=== PATIENT | female | born 1955 | race Caucasian/White ===

== ENCOUNTER 2021-01-10 15:10 | Outpatient (CLI) | payer OTHER, SELFPAY ==
[2021-01-10 15:59] LABS: Add Urine Microscopic? YES; Appearance Urine Clear (Clear); Bilirubin Urine Negative (Negative); Blood Urine Negative (Negative); Color Urine Yellow (Yellow); Glucose Urine UA Negative (Negative); Ketones Urine Negative (Negative); Leukocyte Esterase Ur 2+ LEU/UL (Negative); Mucus Urine Rare /lpf; Nitrate Urine Negative (Negative); Protein Urine Negative (Negative); Specific Grav Ur 1.016 (1.001-1.035); Squamous Epithelial Cell Urine Occasional /hpf (Few); Urobilinogen Urine Negative mg/dL (<2.0); WBC Urine >75 /hpf
== END 2021-01-10 15:11 | disposition home or self-care (01) ==
LOC: ANHLAB 15:12
PROVIDERS: PCP Internal Medicine; Visit Provider Internal Medicine
DX: R30.0 Dysuria (principal)
CPT/HCPCS: 81001; 87077; 87086; 87088; 87186

== ENCOUNTER 2021-02-17 09:53 | Outpatient (CLI) | payer OTHER, SELFPAY ==
[2021-02-17 10:47] LABS: Alanine Aminotransferase 28 U/L (4-35); Albumin Level 4.4 g/dL (3.5-5.1); Alkaline Phosphatase 71 U/L (38-126); Anion Gap 6 mmol/L (8-16); Aspartate Amino Transferase 29 U/L (14-36); Bilirubin,Total 0.2 mg/dL (0.2-1.3); Blood Urea Nitrogen 18 mg/dL (7-17); Calcium 9.4 mg/dL (8.4-10.2); Carbon Dioxide 31 mmol/L (22-30); Chloride 104 mmol/L (98-107); Cholesterol 133 mg/dL (0-200); Estimated Glomerular Filt Rate 50; Glucose 95 mg/dL (65-110); HDL Direct 57 mg/dL; Sodium 141 mmol/L (137-145); Triglycerides 107 mg/dL (<150)
[2021-02-17 10:59] LABS: LDL Cholesterol Direct 44 mg/dL
[2021-02-17 11:40] LABS: Vitamin D 25 Hydroxy 45.6 ng/mL
== END 2021-02-17 09:54 | disposition home or self-care (01) ==
PROVIDERS: PCP Internal Medicine; Visit Provider Internal Medicine
DX: E55.9 Vitamin D deficiency, unspecified (principal); E78.5 Hyperlipidemia, unspecified
CPT/HCPCS: 36415; 80053; 80061; 82306

== ENCOUNTER 2021-07-05 10:30 | Outpatient (CLI) | payer OTHER, SELFPAY ==
--- NOTE | ~2021-07-05 | MM_ITS ---
EXAMINATION: MM screening [facility] BI [facility] [place] HISTORY: Screening mammogram TECHNIQUE: Craniocaudal and mediolateral oblique 3-D tomosynthesis images were obtained and synthetic 2-D images were generated. CAD analysis was submitted and interpreted. COMPARISON: 12/25/2019, 07/04/2018, 07/03/2017 BREAST PARENCHYMAL COMPOSITION: There are scattered areas of fibroglandular density. FINDINGS: There is no evidence of suspicious mass, calcification, or architectural distortion to sugg est malignancy in either breast. There has been no suspicious interval change. IMPRESSION: 1. No mammographic evidence of malignancy. 2. Recommend routine screening mammography in one year. BI-RADS Category 1: Negative Reviewed, dictated and finalized at location A. E AND DATA TECHNICIAN
== END 2021-07-05 10:31 | disposition home or self-care (01) ==
LOC: ANHIMG 10:30
PROVIDERS: PCP Internal Medicine; Visit Provider Obstetrics & Gynecology
DX: Z12.31 Encounter for screening mammogram for malignant neoplasm of breast (principal)
CPT/HCPCS: 77063; 77067

== ENCOUNTER → 2021-08-22 10:16 | Outpatient (CLI) | payer OTHER, SELFPAY ==
[2021-08-22 14:20] LABS: Influenza A QL RT-PCR Negative (Negative); Influenza B QL RT-PCR Negative (Negative); SARS-CoV-2 RNA PCR Negative
== END ==
PROVIDERS: PCP Internal Medicine; Visit Provider Internal Medicine
DX: R09.89 Other specified symptoms and signs involving the circulatory and respiratory systems (principal); Z20.822 Contact with and (suspected) exposure to COVID-19
CPT/HCPCS: 87502; C9803; U0003; U0005

== ENCOUNTER 2021-08-24 09:34 | Outpatient (CLI) | payer OTHER, SELFPAY ==
[2021-08-24 10:01] LABS: Alanine Aminotransferase 24 U/L (4-35); Albumin Level 4.4 g/dL (3.5-5.1); Alkaline Phosphatase 80 U/L (38-126); Anion Gap 7 mmol/L (8-16); Aspartate Amino Transferase 27 U/L (14-36); Bilirubin,Total 0.3 mg/dL (0.2-1.3); Blood Urea Nitrogen 17 mg/dL (7-17); Carbon Dioxide 29 mmol/L (22-30); Chloride 105 mmol/L (98-107); Cholesterol 149 mg/dL (0-200); Estimated Glomerular Filt Rate > 60; Glucose 94 mg/dL (65-110); HDL Direct 55 mg/dL; Sodium 141 mmol/L (137-145); Triglycerides 101 mg/dL (<150)
[2021-08-24 10:11] LABS: LDL Cholesterol Direct 54 mg/dL
== END 2021-08-24 09:35 | disposition home or self-care (01) ==
LOC: ANHLAB 09:35
PROVIDERS: PCP Internal Medicine; Visit Provider Internal Medicine
DX: E78.5 Hyperlipidemia, unspecified (principal); Z79.899 Other long term (current) drug therapy; I10 Essential (primary) hypertension; E55.9 Vitamin D deficiency, unspecified
CPT/HCPCS: 36415; 80053; 80061; 82306

== ENCOUNTER → 2022-01-30 14:57 | Outpatient (CLI) | payer OTHER, SELFPAY ==
--- NOTE | ~2022-01-30 | DEXA_ITS ---
Bone Density Report Name: BRENTON CHENG Age: 66 Sex: Female Ethnicity: White Date of : 1955 Indication: postmenopausal osteoporosis; height loss; Referring Provider: Sandro Madden Study: Bone densitometry was performed. Exam Date: January 30, 2022 Accession number: [id number] Bone Density: Region BMD T-score Z-score Classification AP Spine (L1-L4) 0.785 -2.4 -0.6 Osteopenia Femoral Neck (Left) 0.542 -2.8 -1.3 Osteoporosis Total Hip (Left) 0.629 -2.6 -1.4 Osteoporosis Femoral Neck (Right) 0.541 -2.8 -1.3 Osteoporosis Total Hip (Right) 0.575 -3.0 -1.8 Osteoporosis Total Hip Mean 0.602 -2.8 -1.6 Osteoporosis World Health Organization criteria for BMD impression classify patients as: Normal (T-score at or above -1.0), Osteopenia (T-score between -1.0 and -2.5), or Osteoporosis (T-score at or below -2.5). 10-year Fracture Risk: FRAX not reported because: Some T-score for Spine Total or Hip Total or Femoral Neck at or below -2.5 Previous Exams: Region Exam Age BMD T-score BMD Change BMD Change Date g/cm2 vs Baseline vs Previous AP Spine(L1-L4) 01/30/2022 66 0.785 -2.4 -0.027* -0.027* 08/25/2009 54 0.812 -2.1 Total Hip(Left) 01/30/2022 66 0.629 -2.6 0.030* 0.030* 08/25/2009 54 0.599 -2.8 Total Hip(Right) 01/30/2022 66 0.575 -3.0 -0.070* -0.070* 08/25/2009 54 0.644 -2.4 *Denotes significance at 95% confidence level, LSC for AP Spine = 0.022 g/cm2, LSC for Total Hip = 0.027 g/cm2 Clinical Information Provided by Patient: Has used the following medications: Vitamin D, Calcium Patient maximum height was 62 Menopause Age: 37 No regular weight bearing exercise Drinks caffeinated beverages Onset of menses at age 16 Number of children 1 Impression: The patient has osteoporosis, based on the Right Total Hip T-score. The BMD for the AP Spine(L1-L4) decreased, changing by -0.027 since the last DXA exam. The BMD for the Total Hip(Right) decreased, changing by -0.070 since the last DXA exam. Discussion: INCREASED RISK OF FRACTURE. BONE DENSITY IS UNDESIRABLY LOW AT ONE OR MORE SKELETAL SITES, CONSISTENT WITH POSTMENOPAUSAL OSTEOPOROSIS. This patient's lowest T-score meets the World Health Organization's (WHO) criteria for osteoporosis at one or more sites (T-score -2.5 or below). In untreated patients, the risk of osteoporotic fracture increases approximately two-fold for each 1.0 SD decrease
== END ==
PROVIDERS: PCP Internal Medicine; Visit Provider Nurse Practitioner
DX: Z78.0 Asymptomatic menopausal state (principal); M85.88 Other specified disorders of bone density and structure, other site; M81.0 Age-related osteoporosis without current pathological fracture
CPT/HCPCS: 77080

== ENCOUNTER 2022-03-05 09:26 | Outpatient (CLI) | payer OTHER, SELFPAY ==
[2022-03-05 10:21] LABS: Alanine Aminotransferase 24 U/L (6-35); Albumin Level 4.1 g/dL (3.5-5.1); Alkaline Phosphatase 81 U/L (38-126); Anion Gap 8 mmol/L (8-16); Aspartate Amino Transferase 21 U/L (14-36); Bilirubin,Total 0.2 mg/dL (0.2-1.3); Blood Urea Nitrogen 16 mg/dL (7-17); Calcium 8.6 mg/dL (8.4-10.2); Carbon Dioxide 28 mmol/L (22-30); Chloride 104 mmol/L (98-107); Cholesterol 146 mg/dL (0-200); Estimated Glomerular Filt Rate 56; Glucose 98 mg/dL (65-110); HDL Direct 52 mg/dL; Potassium 4.5 mmol/L (3.4-5.0); Sodium 140 mmol/L (137-145); Triglycerides 110 mg/dL (<150)
[2022-03-05 10:31] LABS: LDL Cholesterol Direct 62 mg/dL
== END 2022-03-05 09:27 | disposition home or self-care (01) ==
LOC: ANHLAB 09:28
PROVIDERS: PCP Internal Medicine; Visit Provider Nurse Practitioner
DX: E78.5 Hyperlipidemia, unspecified (principal)
CPT/HCPCS: 36415; 80053; 80061

== ENCOUNTER 2022-11-09 09:32 | Outpatient (CLI) | payer MEDICARE, OTHER, SELFPAY ==
[2022-11-09 10:31] LABS: Alanine Aminotransferase 24 U/L (6-35); Albumin Level 4.1 g/dL (3.5-5.1); Alkaline Phosphatase 67 U/L (38-126); Anion Gap 3 mmol/L (8-16); Aspartate Amino Transferase 22 U/L (14-36); Bilirubin,Total 0.4 mg/dL (0.2-1.3); Blood Urea Nitrogen 17 mg/dL (7-17); Calcium 8.7 mg/dL (8.4-10.2); Carbon Dioxide 32 mmol/L (22-30); Chloride 106 mmol/L (98-107); Cholesterol 129 mg/dL (0-200); Estimated Glomerular Filt Rate 56; Glucose 88 mg/dL (65-110); HDL Direct 58 mg/dL; Potassium 4.2 mmol/L (3.4-5.0); Sodium 141 mmol/L (137-145); Triglycerides 112 mg/dL (<150)
[2022-11-09 10:43] LABS: LDL Cholesterol Direct 45 mg/dL
== END 2022-11-09 09:33 | disposition home or self-care (01) ==
LOC: ANHLAB 09:36
PROVIDERS: PCP Family Medicine; Visit Provider Internal Medicine
DX: E78.5 Hyperlipidemia, unspecified (principal); I10 Essential (primary) hypertension; E55.9 Vitamin D deficiency, unspecified
CPT/HCPCS: 36415; 80053; 80061; 82306

== ENCOUNTER 2023-05-20 11:05 | Outpatient (CLI) | payer MEDICARE, OTHER, SELFPAY ==
[2023-05-20 12:09] LABS: Basophils Absolute Auto 0.1 K/mm3 (0.0-0.1); Basophils Percent Auto 0.5 % (0.2-1.2); Eosinophils Absolute Auto 0.3 K/mm3 (0-0.3); Eosinophils Percent Auto 1.4 % (0-4.4); Hematocrit 40.9 % (37.0-47.0); Hemoglobin 12.6 g/dL (12.0-15.0); Immature Granulocyte Absolute 0.07 K/mm3 (0.00-0.031); Immature Granulocyte Percent A 0.4 % (0-0.5); Lymphocytes Absolute Auto 2.28 K/mm3 (0.9-3.2); Lymphocytes Percent Auto 12.5 % (18.3-44.2); Mean Corpuscular HGB Conc 30.8 g/dl (32-36); Mean Corpuscular Volume 90.9 fl (80-100); Mean Platelet Volume 10.4 fl (7.4-10.4); Monocytes Percent Auto 5.5 % (2.6-8.5); Neutrophils Absolute Auto 14.5 K/mm3 (1.3-6.7); Neutrophils Percent Auto 79.7 % (45.5-73.1); Platelet Count Result 313 k/mm3 (150-375); Red Cell Distribution Width 14.4 % (11.5-14.5); White Blood Count 18.2 K/mm3 (4.5-10.0)
[2023-05-20 12:27] LABS: Alanine Aminotransferase 26 U/L (6-35); Albumin Level 4.3 g/dL (3.5-5.1); Alkaline Phosphatase 84 U/L (38-126); Anion Gap 6 mmol/L (8-16); Aspartate Amino Transferase 26 U/L (14-36); Bilirubin,Total 0.7 mg/dL (0.2-1.3); Blood Urea Nitrogen 14 mg/dL (7-17); Calcium 9.4 mg/dL (8.4-10.2); Carbon Dioxide 29 mmol/L (22-30); Chloride 105 mmol/L (98-107); Estimated Glomerular Filt Rate 56; Glucose 99 mg/dL (65-110); Potassium 4.3 mmol/L (3.4-5.0); Sodium 140 mmol/L (137-145)
== END 2023-05-20 11:06 | disposition home or self-care (01) ==
PROVIDERS: PCP Nurse Practitioner; Visit Provider Nurse Practitioner Family
DX: E55.9 Vitamin D deficiency, unspecified (principal); F41.9 Anxiety disorder, unspecified; G47.00 Insomnia, unspecified; J44.9 Chronic obstructive pulmonary disease, unspecified; I12.9 Hypertensive chronic kidney disease with stage 1 through stage 4 chronic kidney disease, or unspecified chronic kidney disease; N18.30 Chronic kidney disease, stage 3 unspecified
CPT/HCPCS: 36415; 80053; 85025

== ENCOUNTER 2023-08-29 10:46 | Outpatient (CLI) | payer MEDICARE, OTHER, SELFPAY ==
[2023-08-29 11:19] LABS: Hematocrit 41.2 % (37.0-47.0); Hemoglobin 12.7 g/dL (12.0-15.0); Mean Corpuscular HGB Conc 30.8 g/dl (32-36); Mean Corpuscular Volume 87.5 fl (80-100); Mean Platelet Volume 10.2 fl (7.4-10.4); Platelet Count Result 344 k/mm3 (150-375); Red Blood Count 4.71 M/mm3 (4.2-5.4); Red Cell Distribution Width 14.2 % (11.5-14.5); White Blood Count 10.5 K/mm3 (4.5-10.0)
[2023-08-29 11:31] LABS: Cholesterol 147 mg/dL (0-200); HDL Direct 57 mg/dL; Triglycerides 171 mg/dL (<150)
[2023-08-29 11:42] LABS: LDL Cholesterol Direct 65 mg/dL
== END 2023-08-29 10:47 | disposition home or self-care (01) ==
PROVIDERS: PCP Nurse Practitioner; Visit Provider Nurse Practitioner
DX: D72.829 Elevated white blood cell count, unspecified (principal); E78.5 Hyperlipidemia, unspecified
CPT/HCPCS: 36415; 80061; 85027

== ENCOUNTER 2024-03-03 11:13 | Outpatient (CLI) | payer MEDICARE, OTHER, SELFPAY ==
[2024-03-03 12:03] LABS: Alanine Aminotransferase 19 U/L (6-35); Albumin Level 4.3 g/dL (3.5-5.1); Alkaline Phosphatase 80 U/L (38-126); Anion Gap 8 mmol/L (4-12); Aspartate Amino Transferase 22 U/L (14-36); Bilirubin,Total 0.4 mg/dL (0.2-1.3); Blood Urea Nitrogen 14 mg/dL (7-17); Calcium 9.1 mg/dL (8.4-10.2); Carbon Dioxide 30 mmol/L (22-30); Chloride 104 mmol/L (98-107); Cholesterol 152 mg/dL (0-200); Estimated Glomerular Filt Rate 50; Glucose 96 mg/dL (65-110); HDL Direct 64 mg/dL; Potassium 4.5 mmol/L (3.4-5.0); Sodium 142 mmol/L (137-145); Triglycerides 196 mg/dL (<150)
[2024-03-03 12:14] LABS: LDL Cholesterol Direct 56 mg/dL
== END 2024-03-03 11:14 | disposition home or self-care (01) ==
PROVIDERS: PCP Nurse Practitioner; Visit Provider Nurse Practitioner
DX: E78.5 Hyperlipidemia, unspecified (principal)
CPT/HCPCS: 36415; 80053; 80061

== ENCOUNTER 2024-08-14 08:31 | Inpatient (IN) | payer MEDICARE, OTHER, SELFPAY ==
[2024-08-14] VITALS (18 sets, daily range): BP systolic 113–134; BP diastolic 61–87; PULSE 104–138; RESP 16–26; TEMP 36.1–36.7; O2SAT 91–100; BMI 26.4
--- NOTE | ~2024-08-14 | XR_ITS ---
Portable chest x-ray Comparison: 08/17/2024 Clinical History: Pneumonia Findings: Minimal left pleural effusion present. Questionable minimal haziness left lung base. Right lung clear. Cardiomediastinal silhouette is stable. Bones and soft tissues are unremarkable. Impression: Minimal left pleural effusion with possible hazy left basilar airspace disease, nonspecific. Reviewed, dictated and finalized at [facility]. Impression: Minimal left pleural effusion with possible hazy left basilar airspace disease, nonspecific.
--- NOTE | ~2024-08-14 | XR_ITS ---
Portable chest x-ray Comparison: 08/14/2024 Clinical History: Shortness of breath Findings: Possible COPD or chronic interstitial disease. Stable haziness left lung apex. Cardiomedi astinal silhouette is stable. Bones and soft tissues are unremarkable. Impression: Stable haziness left lung apex, possibly chronic scarring versus pneumonia. Underlying COPD or other chronic interstitial disease. Reviewed, dictated and finalized at location . Impression: Stable haziness left lung apex, possibly chronic scarring versus pneumonia. Underlying COPD or other chronic interstitial disease.
--- NOTE | ~2024-08-14 | XR_ITS ---
EXAMINATION: XR chest 1V portable DATE: 08/14/2024 09:03 INDICATION: Shortness of breath. TECHNIQUE: A single frontal view of the chest was obtained. COMPARISON: None. FINDINGS: There are lucencies in the lungs, consistent with emphysema. There are scattered mild airsp kaycee opacities in all lung zones bilaterally. No pleural effusion or pneumothorax. The heart size is n ormal. IMPRESSION: 1. Multifocal lung disease, consistent with pneumonia. 2. Emphysema. Reviewed, dictated and finalized at location A. [employer] MACHINE OPERATOR
--- NOTE | ~2024-08-14 | CT_ITS ---
EXAMINATION: CTA chest PE protocol DATE: 08/14/2024 10:58 INDICATION: Shortness of breath. TECHNIQUE: Computed tomography angiography (CTA) of the chest was performed with 100 mL Omnipaque-350 intravenous contrast timed to evaluate the pulmonary arteries. Coronal maximum intensity projection 3D-reconstructions were created by the technologist. Automated exposure control and iterative reconst ruction technique were employed. The dose-length product was 232.74 mGy-cm. COMPARISON: Chest single view 08/14/2024 FINDINGS: There is mild emphysema. There are patchy airspace opacities in all lobes, consistent with pneumonia. There is mucous plugging in left lower lobe and lingula. No pleural effusion. The heart si ze is normal. No pericardial effusion. There are coronary artery calcifications. There is no pulmonar y embolus. There is mild mediastinal lymphadenopathy, likely reactive. The gallbladder is distended. There is mild thoracic spondylosis. IMPRESSION: 1. No pulmonary embolus. 2. Multifocal pneumonia. 3. Mild emphysema. 4. Gallbladder distention, which may be secondary to fasting. Correlate with physical exam to exclude acute cholecystitis. Reviewed, dictated and finalized at location A. L TURNER IMPRESSION: 1. No pulmonary embolus. 2. Multifocal pneumonia. 3. Mild emphysema. 4. Gallbladder distention, which may be secondary to fasting. Correlate with ph ysical exam to exclude acute cholecystitis.
--- NOTE | ~2024-08-14 | CT_ITS ---
CT abdomen pelvis w con Ordering provider: Yuli Hong APRN History: 69 years Female with . Increasing lactic 4.4 . Comparison: None. Technique: CT abdomen and pelvis with IV and without oral contrast. Automated exposure control and it erative reconstruction technique were employed. The dose-length product was 296.95 mGy-cm. 100 mL Omn ipaque 350 was given IV. Findings: VISUALIZED LOWER CHEST: Patchy infiltrate is seen in the left lung base posteriorly, middle lobe and lingula suggestive of pneumonia. UPPER ABDOMINAL ORGANS: Liver: Normal. Gallbladder: Distended with no stones. Spleen: Normal. Stomach/duodenum: Normal. Pancreas: Normal. Adrenals: Normal. Kidneys: Normal. PELVIC ORGANS: The bladder is normal. Contrast is seen in the urinary bladder. BOWEL AND MESENTERY: Colon: No evidence of diverticulitis. Normal appendix. Small Bowel: Normal. No obstruction. Peritoneum/mesentery: No free air or free fluid. No mesenteric lymphadenopathy. RETROPERITONEUM: Mild atheromatous disease of the abdominal aorta. No retroperitoneal lymphadenopat hy. MUSCULOSKELETAL: Superficial soft tissues: The superficial soft tissues are normal. Bones: Age appropriate degenerative changes of the spine. IMPRESSION: 1. No evidence of appendicitis, diverticulitis or intestinal obstruction. The the Reviewed, dictated and finalized at location A. 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
--- NOTE | 2024-08-14 08:40 | ECG_ITS ---
Test Date: 2024-08-14 08:46:43 Measurements Intervals [place] Rate: 135 P: 81 VT: 140 QRS: 95 QRSD: 89 T: 61 QT: 305 QTc: 457 Interpretive Statements SINUS TACHYCARDIA BORDERLINE RIGHT AXIS DEVIATION [QRS AXIS > 90] No previous ECG available for comparison Electronically Signed On 08-14-2024 16:31:59 [employer] ENGINEERING DESIGN DRAFTSPERSON by Daina Cruz M.D.
[2024-08-14 08:59] LABS: Hemoglobin 13.6 g/dL (12.0-15.0); Immature Granulocyte Absolute 3.66 K/mm3 (0.00-0.031); Lymphocytes Absolute Auto 1.76 K/mm3 (0.9-3.2); Lymphocytes Percent Auto 2.9 % (18.3-44.2); Mean Corpuscular HGB Conc 31.6 g/dl (32-36); Mean Corpuscular Hemoglobin 26.8 pg (26-34); Mean Corpuscular Volume 84.8 fl (80-100); Mean Platelet Volume 10.1 fl (7.4-10.4); Monocytes Absolute Auto 2.1 K/mm3 (0.1-0.6); Monocytes Percent Auto 3.4 % (2.6-8.5); Neutrophils Absolute Auto 53.4 K/mm3 (1.3-6.7); Neutrophils Percent Auto 87.7 % (45.5-73.1); Platelet Count Result 436 k/mm3 (150-375); Red Blood Count 5.07 M/mm3 (4.2-5.4)
--- NOTE | 2024-08-14 09:02 | ED_ITS ---
HPI - SOB/Dyspnea General Chief Complaint: Shortness of Breath/Dyspnea <Anisha Sullivan APRN - Last Filed: 08/14/24 13:09> Stated Complaint: SOB <Anisha Sullivan APRN - Last Filed: 08/14/24 13:09> Time Seen by Provider: 08/14/24 08:53 <Anisha Sullivan APRN - Last Filed: 08/14/24 13:09> History of Present Illness HPI Narrative: Patient is a 69-year-old female who presents to the ER 2 day history of shortness of breath. She reports she had symptoms of an upper respiratory illness for the past week. Patient denies any history of COPD or asthma. She reports she does not currently smoke cigarettes but used to. Patient reports for the past 2 days she can in wheezing trouble catching her breath. She denies any fevers, chest pain, back pain, pain recent surgeries, history of blood clots. Patient's medical history includes high blood pressure, hyperlipidemia, gastric reflux, but she reports she has been unable to take her meds last couple of days due to her shortness of breath. <Anisha Sullivan APRN - Last Filed: 08/14/24 13:09> Related Data Home Medications: Home Medications ?Medication ?Instructions ?Recorded ?Confirmed ?Last Taken ?Type aspirin 81 mg tablet,delayed 81 mg PO DAILY 03/07/22 08/14/24 Unknown History release (Adult Aspirin Regimen) <Anisha Sullivan APRN - Last Filed: 08/14/24 13:09> Allergies/Adverse Reactions: Allergies Allergy/AdvReac Type Severity Reaction Status Date / Time clavulanic acid Allergy Severe Diarrhea Verified 08/14/24 09:03 cefdinir Allergy Unknown Diarrhea Verified 08/14/24 09:03 clarithromycin Allergy Unknown SEE COMMENT Verified 08/14/24 09:56 methylprednisolone (From AdvReac Intermediate Nausea and Verified 08/14/24 09:03 Medrol) Vomiting <Anisha Sullivan APRN - Last Filed: 08/14/24 13:09> Review of Systems 2 Review of Systems: All systems reviewed & are unremarkable except as noted in HPI and below <Anisha Sullivan APRN - Last Filed: 08/14/24 13:09> PMFSH Past Medical History Medical History: Medical History Screening mammogram, encounter for Hemorrhoids Osteoporosis CKD (chronic kidney disease), stage III COVID-19 Benign essential hypertension Other and unspecified hyperlipidemia Vitamin D deficiency <Anisha Sullivan APRN - Last Filed: 08/14/24 13:09> Surgical History Surgical History: Surgical History History of breast biopsy left breast--benign History of tubal ligation History of endometrial ablation History of laparoscopy endometriosis <Anisha Sullivan APRN - Last Filed: 08/14/24 13:09> Family History Family History: Family History Father Hypertension Mother Family history of diabetes mellitus in first degree relative Cerebrovascular accident <Anisha Sullivan APRN - Last Filed: 08/14/24 13:09> Social History Social History: Social History Smoking packs per day: 1 Smoking cigarettes per day: 20.0 Years smoked: 20 Smoking pack-years: 20.00 Smoking status: Former smoker Tobacco type: cigarettes Second hand tobacco smoke exposure: No Alcohol intake: never Substance use: never Substance use type: does not use Do You Feel Safe in your Home?: Yes Lack of Transportation: No Lack of Food: Never True Current Housing: I Have Housing Concerned About Future Housing: No Difficulty Paying Gas/Electric Bills: No Difficulty Paying for Meds: No Currently Unemployed: No Education: Associate Degree Difficulty w/ Childcare or Family Care: No Living arrangements: other Additional living arrangements comments: Occupation/Education: retired Gender identity (if verbalized by the patient): Female Sexual Orientation (if Verbalized by the Patient): Straight or Heterosexual Spiritual care concerns: No <Anisha Sullivan APRN - Last Filed: 08/14/24 13:09> Exam 2 Narrative: GENERAL: Ill-appearing, well-nourished, non-toxic, in distress d/t SOB. HEAD: Normocephalic, atraumatic. NECK: Supple. No adenopathy, no masses. RESPIRATORY: Airway patent, respirations nonlabored.Wheezing upon auscultation bilaterally, no rales, rhonchi. Pt's lungs very tight. CARDIOVASCULAR: Regular rate and rhythm without murmurs, rubs, or gallops. Peripheral pulses 2+ and equal bilaterally. ABDOMINAL: Soft, nontender, nondistended, no hepatosplenomegaly. Normoactive BS. MUSCULOSKELETAL: Moves all extremities. Strength/ROM intact without gross deformities. SKIN: Warm, dry, normal color. No rashes. NEURO: A&O X3. Speech clear. Cranial nerves II-XII grossly intact. No ataxic movements. PSYCHIATRIC: Appropriate mood and affect. Normal interaction. <Anisha Sullivan APRN - Last Filed: 08/14/24 13:09> Course ELECTRONICS ENGINEERING TECHNOLOGIST/PA Physician Supervision This visit was performed by both a physician and an APC. I performed all aspects of the MDM as documented. <Lexa Zavaleta MD - Last Filed: 08/14/24 22:09> Vital Signs Vital signs: Vital Signs Temperature 98.1 F 08/14/24 08:30 Pulse Rate 138 H 08/14/24 08:30 Respiratory Rate 24 H 08/14/24 08:30 Blood Pressure 117/84 08/14/24 08:30 Pulse Oximetry 91 08/14/24 08:30 Oxygen Delivery Room Air 08/14/24 08:30 Temperature 97.2 F L 08/14/24 21:22 Pulse Rate 104 H 08/14/24 21:22 Respiratory Rate 18 08/14/24 21:22 Blood Pressure 134/65 08/14/24 21:22 Pulse Oximetry 96 08/14/24 21:22 Oxygen Delivery Nasal Cannula 08/14/24 20:02 Oxygen Flow Rate 1 08/14/24 20:02 <Anisha Sullivan APRN - Last Filed: 08/14/24 13:09> Vital Signs Temperature 98.1 F 08/14/24 08:30 Pulse Rate 138 H 08/14/24 08:30 Respiratory Rate 24 H 08/14/24 08:30 Blood Pressure 117/84 08/14/24 08:30 Pulse Oximetry 91 08/14/24 08:30 Oxygen Delivery Room Air 08/14/24 08:30 Temperature 97.2 F L 08/14/24 21:22 Pulse Rate 104 H 08/14/24 21:22 Respiratory Rate 18 08/14/24 21:22 Blood Pressure 134/65 08/14/24 21:22 Pulse Oximetry 96 08/14/24 21:22 Oxygen Delivery Nasal Cannula 08/14/24 20:02 Oxygen Flow Rate 1 08/14/24 20:02 <Lexa Zavaleta MD - Last Filed: 08/14/24 22:09> MDM - SOB/Dyspnea MDM Narrative Medical decision making narrative: Patient is a 69-year-old female who presents to the ER 2 day history of shortness of breath. She reports she had symptoms of an upper respiratory illness for the past week. Patient denies any history of COPD or asthma. She reports she does not currently smoke cigarettes but used to. Patient reports for the past 2 days she can in wheezing trouble catching her breath. She denies any fevers, chest pain, back pain, pain recent surgeries, history of blood clots. Patient's medical history includes high blood pressure, hyperlipidemia, gastric reflux, but she reports she has been unable to take her meds last couple of days due to her shortness of breath. Labs Ordered: CBC, CMP, D-dimer, proBNP, CRP, lactic acid, blood cultures, COVID/flu/RSV swab, magnesium, troponin, PTT, INR Imaging Ordered: Chest x-ray, CTA chest PE Medications Ordered: Decadron 10 mg IV, duo neb, ceftriaxone IV, azithromycin IV, 2 L normal saline IV bolus Results: Patient's CBC indicates a white blood cell count of 60.9. She denies any history of leukemia or lymphoma. Her D-dimer is 1.97. Patient's sodium was 133, carbon dioxide 20, anion gap 14, glucose 165, lactic acid 3.0, alk-phos 131, CRP 37.4, proBNP 1220. Patient's CT scan indicates There is mild emphysema. There are patchy airspace opacities in all lobes, consistent with pneumonia. There is mucous plugging in left lower lobe and lingula. No pleural effusion. The heart size is normal. No pericardial effusion. There are coronary artery calcifications. There is no pulmonary embolus. There is mild mediastinal lymphadenopathy, likely reactive. The gallbladder is distended. There is mild thoracic spondylosis. Diagnosis: Multifocal pneumonia, elevated WBC Patient Education/Shared MDM: Results shared with patient. She endorses improvement following medication administration. Patient strongly advised to stay in the hospital due to her new oxygen requirement and pneumonia. She verbalizes understanding and is in agreement with plan. Spoke with hospitalist who is in agreement to admit patient to the hospital. <nAisha Sullivan, DOMESTIC HELPER - Last Filed: 08/14/24 13:09> Differential Diagnosis Differential diagnosis: Likely acute exacerbation of chronic obstructive airways disease, congestive heart failure, community acquired pneumonia, asthma with exacerbation and pulmonary embolism <Anisha Sullivan DOMESTIC HELPER - Last Filed: 08/14/24 13:09> Lab Data Attestation: I reviewed the patient's lab results. <Anisha Sullivan DOMESTIC HELPER - Last Filed: 08/14/24 13:09> Result diagrams: 08/14/24 15:06 08/14/24 08:51 <Anisha Sullivan DOMESTIC HELPER - Last Filed: 08/14/24 13:09> Labs: Lab Results 08/14/24 08/14/24 08/14/24 Range/Units 08:51 08:51 08:51 WBC (4.5-10.0) K/mm3 RBC (4.2-5.4) M/mm3 Hgb (12.0-15.0) g/dL Hct (37.0-47.0) % MCV (80-100) fl MCH (26-34) pg MCHC (32-36) g/dl RDW (11.5-14.5) % Plt Count (150-375) k/mm3 MPV (7.4-10.4) fl Immature Gran % (Auto) (0-0.5) % Neut % (Auto) (45.5-73.1) % Lymph % (Auto) (18.3-44.2) % Curry % (Auto) (2.6-8.5) % Eos % (Auto) (0-4.4) % Baso % (Auto) (0.2-1.2) % Lymph # (Auto) (0.9-3.2) K/mm3 Curry # (Auto) (0.1-0.6) K/mm3 Eos # (Auto) (0-0.3) K/mm3 Baso # (Auto) (0.0-0.1) K/mm3 Abs Immat Gran (auto) (0.00-0.031) K/mm3 Absolute Neuts (auto) (1.3-6.7) K/mm3 Absolute Nucleated RBC (0.0-0.012) K/mm3 Nucleated RBC % (0.0-0.2) % PT 14.6 (11.1-14.7) Seconds INR 1.1 APTT 30.4 (22.3-36.8) Seconds D-Dimer 1.97 H (<0.48) ug/mL Sodium 133 L (137-145) mmol/L Potassium 4.3 (3.4-5.0) mmol/L Chloride 99 (98-107) mmol/L Carbon Dioxide 20 L (22-30) mmol/L Anion Gap 14 H (4-12) mmol/L BUN 16 (7-17) mg/dL Creatinine 0.87 (0.7-1.0) mg/dL Estim Creat Clear Calc Not Reportable Estimated GFR > 60 (59 - ) Glucose 165 H (65-110) mg/dL Lactic Acid (0.7-2.0) mmol/L Calcium 9.3 (8.4-10.2) mg/dL Magnesium 2.0 Cancelled (1.6-2.3) mg/dL Total Bilirubin 0.9 (0.2-1.3) mg/dL AST 26 (14-36) U/L ALT 25 (6-35) U/L Alkaline Phosphatase 131 H (38-126) U/L Troponin I < 0.012 Cancelled (0.000-0.034) ng/mL C-Reactive Protein (<1.0) mg/dL NT-Pro-B Natriuret Pep 1220 H (19.9-100) pg/mL Total Protein (6.3-8.2) g/dL Albumin (3.5-5.1) g/dL Urine Color (Yellow) Urine Appearance (Clear) Urine pH (5.0-9.0) Ur Specific Shickley (1.001-1.035) Urine Protein (Negative) mg/dL Urine Glucose (UA) (Negative) mg/dL Urine Ketones (Negative) mg/dL Ur Blood (Man) (Negative) Urine Nitrate (Negative) Urine Bilirubin (Negative) Urine Urobilinogen (<2.0) mg/dL Add Ur Microanalysis Leukocyte Esterase Rfl (Negative) WALKER/UL Urine RBC (0-2) /hpf Urine WBC (0-3) /hpf Ur Squamous Epith Cells (Few) /hpf Urine Bacteria /hpf Urine Casts Influenza A (RT-PCR) (Negative) Influenza B (RT-PCR) (Negative) RSV (RT-PCR) (Negative) SARS-CoV-2 RNA (RT-PCR) (Negative) 08/14/24 08/14/24 08/14/24 Range/Units 08:51 08:52 09:13 WBC 60.9 H* (4.5-10.0) K/mm3 RBC 5.07 (4.2-5.4) M/mm3 Hgb 13.6 (12.0-15.0) g/dL Hct 43.0 (37.0-47.0) % MCV 84.8 (80-100) fl MCH 26.8 (26-34) pg MCHC 31.6 L (32-36) g/dl RDW 15.0 H (11.5-14.5) % Plt Count 436 H (150-375) k/mm3 MPV 10.1 (7.4-10.4) fl Immature Gran % (Auto) 6.0 H (0-0.5) % Neut % (Auto) 87.7 H (45.5-73.1) % Lymph % (Auto) 2.9 L (18.3-44.2) % Curry % (Auto) 3.4 (2.6-8.5) % Eos % (Auto) 0.0 (0-4.4) % Baso % (Auto) 0.0 L (0.2-1.2) % Lymph # (Auto) 1.76 (0.9-3.2) K/mm3 Curry # (Auto) 2.1 H (0.1-0.6) K/mm3 Eos # (Auto) 0.0 (0-0.3) K/mm3 Baso # (Auto) 0.0 (0.0-0.1) K/mm3 Abs Immat Gran (auto) 3.66 H (0.00-0.031) K/mm3 Absolute Neuts (auto) 53.4 H (1.3-6.7) K/mm3 Absolute Nucleated RBC 0.000 (0.0-0.012) K/mm3 Nucleated RBC % 0.0 (0.0-0.2) % PT (11.1-14.7) Seconds INR APTT (22.3-36.8) Seconds D-Dimer (<0.48) ug/mL Sodium (137-145) mmol/L Potassium (3.4-5.0) mmol/L Chloride (98-107) mmol/L Carbon Dioxide (22-30) mmol/L Anion Gap (4-12) mmol/L BUN (7-17) mg/dL Creatinine (0.7-1.0) mg/dL Estim Creat Clear Calc Estimated GFR (59 - ) Glucose (65-110) mg/dL Lactic Acid (0.7-2.0) mmol/L Calcium (8.4-10.2) mg/dL Magnesium (1.6-2.3) mg/dL Total Bilirubin (0.2-1.3) mg/dL AST (14-36) U/L ALT (6-35) U/L Alkaline Phosphatase (38-126) U/L Troponin I (0.000-0.034) ng/mL C-Reactive Protein (<1.0) mg/dL NT-Pro-B Natriuret Pep Cancelled (19.9-100) pg/mL Total Protein 8.0 (6.3-8.2) g/dL Albumin 4.2 (3.5-5.1) g/dL Urine Color (Yellow) Urine Appearance (Clear) Urine pH (5.0-9.0) Ur Specific Shickley (1.001-1.035) Urine Protein (Negative) mg/dL Urine Glucose (UA) (Negative) mg/dL Urine Ketones (Negative) mg/dL Ur Blood (Man) (Negative) Urine Nitrate (Negative) Urine Bilirubin (Negative) Urine Urobilinogen (<2.0) mg/dL Add Ur Microanalysis Leukocyte Esterase Rfl (Negative) WALKER/UL Urine RBC (0-2) /hpf Urine WBC (0-3) /hpf Ur Squamous Epith Cells (Few) /hpf Urine Bacteria /hpf Urine Casts Influenza A (RT-PCR) Negative (Negative) Influenza B (RT-PCR) Negative (Negative) RSV (RT-PCR) Negative (Negative) SARS-CoV-2 RNA (RT-PCR) Negative (Negative) 08/14/24 08/14/24 08/14/24 Range/Units 10:08 12:09 13:30 WBC (4.5-10.0) K/mm3 RBC (4.2-5.4) M/mm3 Hgb (12.0-15.0) g/dL Hct (37.0-47.0) % MCV (80-100) fl MCH (26-34) pg MCHC (32-36) g/dl RDW (11.5-14.5) % Plt Count (150-375) k/mm3 MPV (7.4-10.4) fl Immature Gran % (Auto) (0-0.5) % Neut % (Auto) (45.5-73.1) % Lymph % (Auto) (18.3-44.2) % Curry % (Auto) (2.6-8.5) % Eos % (Auto) (0-4.4) % Baso % (Auto) (0.2-1.2) % Lymph # (Auto) (0.9-3.2) K/mm3 Curry # (Auto) (0.1-0.6) K/mm3 Eos # (Auto) (0-0.3) K/mm3 Baso # (Auto) (0.0-0.1) K/mm3 Abs Immat Gran (auto) (0.00-0.031) K/mm3 Absolute Neuts (auto) (1.3-6.7) K/mm3 Absolute Nucleated RBC (0.0-0.012) K/mm3 Nucleated RBC % (0.0-0.2) % PT (11.1-14.7) Seconds INR APTT (22.3-36.8) Seconds D-Dimer (<0.48) ug/mL Sodium (137-145) mmol/L Potassium (3.4-5.0) mmol/L Chloride (98-107) mmol/L Carbon Dioxide (22-30) mmol/L Anion Gap (4-12) mmol/L BUN (7-17) mg/dL Creatinine (0.7-1.0) mg/dL Estim Creat Clear Calc Estimated GFR (59 - ) Glucose (65-110) mg/dL Lactic Acid 3.0 H 3.2 H (0.7-2.0) mmol/L Calcium (8.4-10.2) mg/dL Magnesium (1.6-2.3) mg/dL Total Bilirubin (0.2-1.3) mg/dL AST (14-36) U/L ALT (6-35) U/L Alkaline Phosphatase (38-126) U/L Troponin I (0.000-0.034) ng/mL C-Reactive Protein 37.4 H (<1.0) mg/dL NT-Pro-B Natriuret Pep (19.9-100) pg/mL Total Protein (6.3-8.2) g/dL Albumin (3.5-5.1) g/dL Urine Color Yellow (Yellow) Urine Appearance Clear (Clear) Urine pH 5.0 (5.0-9.0) Ur Specific Shickley > 1.045 H (1.001-1.035) Urine Protein 1+ H (Negative) mg/dL Urine Glucose (UA) Negative (Negative) mg/dL Urine Ketones Negative (Negative) mg/dL Ur Blood (Man) Trace (Negative) Urine Nitrate Negative (Negative) Urine Bilirubin Negative (Negative) Urine Urobilinogen 0.2 (<2.0) mg/dL Add Ur Microanalysis Reviewed Leukocyte Esterase Rfl Negative (Negative) WALKER/UL Urine RBC 6-10 H (0-2) /hpf Urine WBC 0-5 (0-3) /hpf Ur Squamous Epith Cells None seen (Few) /hpf Urine Bacteria None seen /hpf Urine Casts 0-2 Influenza A (RT-PCR) (Negative) Influenza B (RT-PCR) (Negative) RSV (RT-PCR) (Negative) SARS-CoV-2 RNA (RT-PCR) (Negative) <Anisha Sullivan, DOMESTIC HELPER - Last Filed: 08/14/24 13:09> Lab Results 08/14/24 08/14/24 08/14/24 Range/Units 08:51 08:51 08:51 WBC (4.5-10.0) K/mm3 RBC (4.2-5.4) M/mm3 Hgb (12.0-15.0) g/dL Hct (37.0-47.0) % MCV (80-100) fl MCH (26-34) pg MCHC (32-36) g/dl RDW (11.5-14.5) % Plt Count (150-375) k/mm3 MPV (7.4-10.4) fl Immature Gran % (Auto) (0-0.5) % Neut % (Auto) (45.5-73.1) % Lymph % (Auto) (18.3-44.2) % Curry % (Auto) (2.6-8.5) % Eos % (Auto) (0-4.4) % Baso % (Auto) (0.2-1.2) % Lymph # (Auto) (0.9-3.2) K/mm3 Curry # (Auto) (0.1-0.6) K/mm3 Eos # (Auto) (0-0.3) K/mm3 Baso # (Auto) (0.0-0.1) K/mm3 Abs Immat Gran (auto) (0.00-0.031) K/mm3 Absolute Neuts (auto) (1.3-6.7) K/mm3 Absolute Nucleated RBC (0.0-0.012) K/mm3 Nucleated RBC % (0.0-0.2) % PT 14.6 (11.1-14.7) Seconds INR 1.1 APTT 30.4 (22.3-36.8) Seconds D-Dimer 1.97 H (<0.48) ug/mL Sodium 133 L (137-145) mmol/L Potassium 4.3 (3.4-5.0) mmol/L Chloride 99 (98-107) mmol/L Carbon Dioxide 20 L (22-30) mmol/L Anion Gap 14 H (4-12) mmol/L BUN 16 (7-17) mg/dL Creatinine 0.87 (0.7-1.0) mg/dL Estim Creat Clear Calc Not Reportable Estimated GFR > 60 (59 - ) Glucose 165 H (65-110) mg/dL Lactic Acid (0.7-2.0) mmol/L Calcium 9.3 (8.4-10.2) mg/dL Magnesium 2.0 Cancelled (1.6-2.3) mg/dL Total Bilirubin 0.9 (0.2-1.3) mg/dL AST 26 (14-36) U/L ALT 25 (6-35) U/L Alkaline Phosphatase 131 H (38-126) U/L Troponin I < 0.012 Cancelled (0.000-0.034) ng/mL C-Reactive Protein (<1.0) mg/dL NT-Pro-B Natriuret Pep 1220 H (19.9-100) pg/mL Total Protein (6.3-8.2) g/dL Albumin (3.5-5.1) g/dL Urine Color (Yellow) Urine Appearance (Clear) Urine pH (5.0-9.0) Ur Specific Shickley (1.001-1.035) Urine Protein (Negative) mg/dL Urine Glucose (UA) (Negative) mg/dL Urine Ketones (Negative) mg/dL Ur Blood (Man) (Negative) Urine Nitrate (Negative) Urine Bilirubin (Negative) Urine Urobilinogen (<2.0) mg/dL Add Ur Microanalysis Leukocyte Esterase Rfl (Negative) WALKER/UL Urine RBC (0-2) /hpf Urine WBC (0-3) /hpf Ur Squamous Epith Cells (Few) /hpf Urine Bacteria /hpf Urine Casts Influenza A (RT-PCR) (Negative) Influenza B (RT-PCR) (Negative) RSV (RT-PCR) (Negative) SARS-CoV-2 RNA (RT-PCR) (Negative) 08/14/24 08/14/24 08/14/24 Range/Units 08:51 08:52 09:13 WBC 60.9 H* (4.5-10.0) K/mm3 RBC 5.07 (4.2-5.4) M/mm3 Hgb 13.6 (12.0-15.0) g/dL Hct 43.0 (37.0-47.0) % MCV 84.8 (80-100) fl MCH 26.8 (26-34) pg MCHC 31.6 L (32-36) g/dl RDW 15.0 H (11.5-14.5) % Plt Count 436 H (150-375) k/mm3 MPV 10.1 (7.4-10.4) fl Immature Gran % (Auto) 6.0 H (0-0.5) % Neut % (Auto) 87.7 H (45.5-73.1) % Lymph % (Auto) 2.9 L (18.3-44.2) % Curry % (Auto) 3.4 (2.6-8.5) % Eos % (Auto) 0.0 (0-4.4) % Baso % (Auto) 0.0 L (0.2-1.2) % Lymph # (Auto) 1.76 (0.9-3.2) K/mm3 Curry # (Auto) 2.1 H (0.1-0.6) K/mm3 Eos # (Auto) 0.0 (0-0.3) K/mm3 Baso # (Auto) 0.0 (0.0-0.1) K/mm3 Abs Immat Gran (auto) 3.66 H (0.00-0.031) K/mm3 Absolute Neuts (auto) 53.4 H (1.3-6.7) K/mm3 Absolute Nucleated RBC 0.000 (0.0-0.012) K/mm3 Nucleated RBC % 0.0 (0.0-0.2) % PT (11.1-14.7) Seconds INR APTT (22.3-36.8) Seconds D-Dimer (<0.48) ug/mL Sodium (137-145) mmol/L Potassium (3.4-5.0) mmol/L Chloride (98-107) mmol/L Carbon Dioxide (22-30) mmol/L Anion Gap (4-12) mmol/L BUN (7-17) mg/dL Creatinine (0.7-1.0) mg/dL Estim Creat Clear Calc Estimated GFR (59 - ) Glucose (65-110) mg/dL Lactic Acid (0.7-2.0) mmol/L Calcium (8.4-10.2) mg/dL Magnesium (1.6-2.3) mg/dL Total Bilirubin (0.2-1.3) mg/dL AST (14-36) U/L ALT (6-35) U/L Alkaline Phosphatase (38-126) U/L Troponin I (0.000-0.034) ng/mL C-Reactive Protein (<1.0) mg/dL NT-Pro-B Natriuret Pep Cancelled (19.9-100) pg/mL Total Protein 8.0 (6.3-8.2) g/dL Albumin 4.2 (3.5-5.1) g/dL Urine Color (Yellow) Urine Appearance (Clear) Urine pH (5.0-9.0) Ur Specific Shickley (1.001-1.035) Urine Protein (Negative) mg/dL Urine Glucose (UA) (Negative) mg/dL Urine Ketones (Negative) mg/dL Ur Blood (Man) (Negative) Urine Nitrate (Negative) Urine Bilirubin (Negative) Urine Urobilinogen (<2.0) mg/dL Add Ur Microanalysis Leukocyte Esterase Rfl (Negative) WALKER/UL Urine RBC (0-2) /hpf Urine WBC (0-3) /hpf Ur Squamous Epith Cells (Few) /hpf Urine Bacteria /hpf Urine Casts Influenza A (RT-PCR) Negative (Negative) Influenza B (RT-PCR) Negative (Negative) RSV (RT-PCR) Negative (Negative) SARS-CoV-2 RNA (RT-PCR) Negative (Negative) 08/14/24 08/14/24 08/14/24 Range/Units 10:08 12:09 13:30 WBC (4.5-10.0) K/mm3 RBC (4.2-5.4) M/mm3 Hgb (12.0-15.0) g/dL Hct (37.0-47.0) % MCV (80-100) fl MCH (26-34) pg MCHC (32-36) g/dl RDW (11.5-14.5) % Plt Count (150-375) k/mm3 MPV (7.4-10.4) fl Immature Gran % (Auto) (0-0.5) % Neut % (Auto) (45.5-73.1) % Lymph % (Auto) (18.3-44.2) % Curry % (Auto) (2.6-8.5) % Eos % (Auto) (0-4.4) % Baso % (Auto) (0.2-1.2) % Lymph # (Auto) (0.9-3.2) K/mm3 Curry # (Auto) (0.1-0.6) K/mm3 Eos # (Auto) (0-0.3) K/mm3 Baso # (Auto) (0.0-0.1) K/mm3 Abs Immat Gran (auto) (0.00-0.031) K/mm3 Absolute Neuts (auto) (1.3-6.7) K/mm3 Absolute Nucleated RBC (0.0-0.012) K/mm3 Nucleated RBC % (0.0-0.2) % PT (11.1-14.7) Seconds INR APTT (22.3-36.8) Seconds D-Dimer (<0.48) ug/mL Sodium (137-145) mmol/L Potassium (3.4-5.0) mmol/L Chloride (98-107) mmol/L Carbon Dioxide (22-30) mmol/L Anion Gap (4-12) mmol/L BUN (7-17) mg/dL Creatinine (0.7-1.0) mg/dL Estim Creat Clear Calc Estimated GFR (59 - ) Glucose (65-110) mg/dL Lactic Acid 3.0 H 3.2 H (0.7-2.0) mmol/L Calcium (8.4-10.2) mg/dL Magnesium (1.6-2.3) mg/dL Total Bilirubin (0.2-1.3) mg/dL AST (14-36) U/L ALT (6-35) U/L Alkaline Phosphatase (38-126) U/L Troponin I (0.000-0.034) ng/mL C-Reactive Protein 37.4 H (<1.0) mg/dL NT-Pro-B Natriuret Pep (19.9-100) pg/mL Total Protein (6.3-8.2) g/dL Albumin (3.5-5.1) g/dL Urine Color Yellow (Yellow) Urine Appearance Clear (Clear) Urine pH 5.0 (5.0-9.0) Ur Specific Shick[place] > 1.045 H (1.001-1.035) Urine Protein 1+ H (Negative) mg/dL Urine Glucose (UA) Negative (Negative) mg/dL Urine Ketones Negative (Negative) mg/dL Ur Blood (Man) Trace (Negative) Urine Nitrate Negative (Negative) Urine Bilirubin Negative (Negative) Urine Urobilinogen 0.2 (<2.0) mg/dL Add Ur Microanalysis Reviewed Leukocyte Esterase Rfl Negative (Negative) WALKER/UL Urine RBC 6-10 H (0-2) /hpf Urine WBC 0-5 (0-3) /hpf Ur Squamous Epith Cells None seen (Few) /hpf Urine Bacteria None seen /hpf Urine Casts 0-2 Influenza A (RT-PCR) (Negative) Influenza B (RT-PCR) (Negative) RSV (RT-PCR) (Negative) SARS-CoV-2 RNA (RT-PCR) (Negative) <Lexa Zavaleta MD - Last Filed: 08/14/24 22:09> Imaging Data Attestation: I personally reviewed and interpreted this imaging study as follows: < Anisha Sullivan APRN - Last Filed: 08/14/24 13:09> Radiologist's impression: Impressions Chest X-Ray 08/14/24 09:29 IMPRESSION: 1. Multifocal lung disease, consistent with pneumonia. 2. Emphysema. Chest CTA 08/14/24 11:06 IMPRESSION: 1. No pulmonary embolus. 2. Multifocal pneumonia. 3. Mild emphysema. 4. Gallbladder distention, which may be secondary to fasting. Correlate with physical exam to exclude acute cholecystitis. <Anisha Sullivan APRN - Last Filed: 08/14/24 13:09> Discharge Plan Discharge Clinical Impression: Multifocal pneumonia, Elevated WBC count, Mild congestive heart failure <Anisha Sullivan APRN - Last Filed: 08/14/24 13:09> Patient Disposition: Still a Patient <Anisha Sullivan APRN - Last Filed: 08/14/24 13:09> Condition: Stable <Anisha Sullivan APRN - Last Filed: 08/14/24 13:09>
[2024-08-14 09:10] LABS: Alanine Aminotransferase 25 U/L (6-35); Albumin Level 4.2 g/dL (3.5-5.1); Alkaline Phosphatase 131 U/L (38-126); Anion Gap 14 mmol/L (4-12); Aspartate Amino Transferase 26 U/L (14-36); Bilirubin,Total 0.9 mg/dL (0.2-1.3); Blood Urea Nitrogen 16 mg/dL (7-17); Calcium 9.3 mg/dL (8.4-10.2); Carbon Dioxide 20 mmol/L (22-30); Chloride 99 mmol/L (98-107); Estimated Glomerular Filt Rate > 60; Glucose 165 mg/dL (65-110); Potassium 4.3 mmol/L (3.4-5.0); Sodium 133 mmol/L (137-145)
[2024-08-14 09:18] LABS: White Blood Count 60.9 K/mm3 (4.5-10.0)
[2024-08-14] MEDS: IPRATROPIUM 0.5 MG/ALBUTEROL SULFATE 2.5 MG AMPUL.NEB 3 ML INHALATION ×5 (09:20→20:00)
[2024-08-14] MEDS: SODIUM CHLORIDE 0.9% IV 1,000 ML 999 ML IV CONT ×2 (09:26→13:17)
[2024-08-14 09:27] LABS: NT Pro B Type Natriuretic Pept 1220 pg/mL (19.9-100); Troponin I < 0.012 ng/mL (0.000-0.034)
--- OUTSIDE RECORDS SUMMARY | 2024-08-14 09:29 | XMS_ITS | Clinical Summary ---
Author Organization [facility] Address [address] [place] [id number] Care Team Providers Care Digital Imager Name Role Phone Unavailable Primary Care Provider Unavailabl e Social History Tobacco Use Types Packs/Day Years Used Date Smoking Tobacco: Never Assessed Comments Unknown Sex and Gender Information Value Date Recorded Sex Assigned at Not on file Legal Sex Female 7:37 PM CDT Gender Identity Not on file Sexual Orientation Not on file Plan of Treatment Health Maintenance Due Date Last Done Comments Colorectal Cancer Screening Colonoscopy (10 Years) 1957 Hepatitis C 1975 DTaP, Tdap and Td Vaccines ( 1 - Tdap) 1976 Mammogram Screening 1997 Zoster Vaccines (2 of 3) 04/28/2019 03/03/2019 Dexa Scan (General) 2022 Pneumococcal Vaccine: 65+ Ye ars (2 of 2 - PPSV23 or PCV20) 2022 04/08/2018 COVID-19 Vaccine ( - 2023-2 5 season) 2024 Influenza Adult (#1) 2024 RSV Immunization or 60+ Years (1 - 1-dose 75+ series) 2032 Meningococcal B Vaccine Aged Out No l onger eligible based on patient's age to complete this topic Meningococcal Vaccine Aged Out No gage jax eligible based on patient's age to complete this topic RSV Immunizations Under 20 Months Aged Out No longer eligible based on patient's age to complete this topic Insurance
[2024-08-14 09:30] LABS: INR 1.1; Prothrombin Time 14.6 Seconds (11.1-14.7)
[2024-08-14 09:31] LABS: Partial Thromboplastin Time 30.4 Seconds (22.3-36.8)
[2024-08-14] MEDS: dexAMETHasone SOD PHOS INJ 10 MG/ML 1 ML VIAL IV PUSH (09:35)
[2024-08-14 09:36] LABS: D Dimer 1.97 ug/mL (<0.48)
[2024-08-14 09:55] LABS: Influenza A QL RT-PCR Negative (Negative); Influenza B QL RT-PCR Negative (Negative); RSV RNA, RT-PCR Negative (Negative); SARS-CoV-2 RNA PCR Negative (Negative)
--- NOTE | 2024-08-14 10:03 | PC.NURSE ---
RN asked pt if she could provide a urine sample. Pt stated she needed more time. Pt currently receiving fluids and RN will go back in pt room in 10 minutes to recheck.
--- NOTE | 2024-08-14 10:34 | PC.NURSE ---
RN called pt per pt request. Pt updated. Will call with change of status.
[2024-08-14] MEDS: AZITHROMYCIN 500 MG/NS 250 ML 500 MG/250 ML BAG 250 MG IVPB (11:14)
[2024-08-14 11:45] LABS: CRP 37.4 mg/dL (<1.0)
[2024-08-14 12:29] LABS: Add Urine Microscopic? YES; Appearance Urine Clear (Clear); Bacteria Urine None Seen /hpf; Bilirubin Urine Negative (Negative); Blood Urine Trace (Negative); Color Urine Yellow (Yellow); Glucose Urine UA Negative (Negative); Ketones Urine Negative (Negative); Leukocyte Esterase Ur Negative LEU/UL (Negative); Need Manual Microscopic Reviewed; Nitrate Urine Negative (Negative); Non Pathogenic Casts 0-2; Protein Urine 1+ mg/dL (Negative); Specific Grav Ur > 1.045 (1.001-1.035); Squamous Epithelial Cell Urine None Seen /hpf (Few); Urobilinogen Urine 0.2 mg/dL (<2.0); WBC Urine 0-5 /hpf (0-3)
[2024-08-14] MEDS: FUROSEMIDE INJ 40 MG/4 ML VIAL IV PUSH (13:10)
[2024-08-14] MEDS: SODIUM CHLORIDE 0.9% IV 1,000 ML 125 ML IV CONT ×2 (13:17→20:16)
[2024-08-14 13:19] LABS: Reflex Lactic Acid Yes or No Add Lactic
[2024-08-14 13:47] LABS: Lactic Acid 3.2 mmol/L (0.7-2.0)
--- NOTE | 2024-08-14 13:53 | PM.IMHP ---
H&P: HPI History of Present Illness Date/Time: 08/14/24 13:53 Chief Complaint: Shortness of breath Narrative: 69-year-old patient past medical history of hypertension osteoporosis the hospital shortness of breath. Patient states that she has been sick on and off for the last 3 months for different respiratory illnesses. She believes it is due to getting the flu and other respiratory infections from her grandkids. She states other than that she is in good health she has no history of cancer, no recent weight loss no fever or chills. Patient's only complaint is that she is short of breath, pursed lip breathing. In the ED the patient's WBC is 60.9, D-dimer 1.97, hyponatremia 133, carbon dioxide 20, anion gap 14 lactic acid of 3 with repeat 3.2 after fluid bolus, C-reactive protein 37.4, BNP 1220, UA negative for infection, influenza a B, RSV and COVID negative. CTA negative for pulmonary embolism with multifocal pneumonia and mild emphysema. EKG shows sinus tachycardia at 135, QTC of 457. Patient given azithromycin, Rocephin, steroids, Lasix, on 2 L IV fluids in the ED. Review of Systems Review of Systems: 12 systems were reviewed and are negative except for as per HPI. [facility] Past Medical History Medical History Screening mammogram, encounter for Hemorrhoids Osteoporosis CKD (chronic kidney disease), stage III COVID-19 Benign essential hypertension Other and unspecified hyperlipidemia Vitamin D deficiency Surgical History Surgical History History of breast biopsy left breast--benign History of tubal ligation History of endometrial ablation History of laparoscopy endometriosis Family History Family History Father Hypertension Mother Family history of diabetes mellitus in first degree relative Cerebrovascular accident Social History Social History Smoking packs per day: 1 Smoking cigarettes per day: 20.0 Years smoked: 20 Smoking pack-years: 20.00 Smoking status: Former smoker Second hand tobacco smoke exposure: No Smoking end date: 11/18/18 Alcohol intake: never Substance use: never Substance use type: does not use Lack of Transportation: No Lack of Food: Never True Current Housing: I Have Housing Concerned About Future Housing: No Difficulty Paying Gas/Electric Bills: No Difficulty Paying for Meds: No Currently Unemployed: No Education: Associate Degree Difficulty w/ Childcare or Family Care: No Living arrangements: other Additional living arrangements comments: Occupation/Education: retired Gender identity (if verbalized by the patient): Female Sexual Orientation (if Verbalized by the Patient): Straight or Heterosexual Meds Home Medications and Allergies Home Medications ?Medication ?Instructions ?Recorded ?Confirmed ?Type fluticasone propionate 50 2 spray intranasal DAILY #16 grams 08/29/21 08/14/24 Rx mcg/actuation nasal spray,suspension aspirin 81 mg tablet,delayed 81 mg PO DAILY 03/07/22 08/14/24 History release (Adult Aspirin Regimen) amlodipine 2.5 mg tablet (Norvasc) 2.5 mg PO DAILY #90 tabs 03/09/24 08/14/24 Rx pantoprazole 20 mg tablet,delayed 20 mg PO QAM #90 tabs 03/09/24 08/14/24 Rx release alendronate 70 mg tablet (Fosamax) 70 mg PO WEEKLY #12 tabs 03/16/24 08/14/24 Rx meloxicam 15 mg tablet 15 mg PO DAILY #90 tabs 04/21/24 08/14/24 Rx bupropion HCl 150 mg 24 hr tablet, 150 mg PO QAM #90 tabs 05/25/24 08/14/24 Rx extended release rosuvastatin 20 mg tablet (Crestor) 20 mg PO DAILY #90 tabs 05/25/24 08/14/24 Rx eszopiclone 2 mg tablet (Lunesta) 2 mg PO QHS #30 tabs 07/29/24 08/14/24 Rx fluticasone 500 mcg-salmeterol 50 1 inh inhalation Q12H #180 ea 07/31/24 08/14/24 Rx mcg/dose blistr powdr for inhalation (Advair Diskus) gabapentin 300 mg capsule See Rx Instructions .Route 07/31/24 08/14/24 Rx .COMPLEX #90 caps Allergies Allergy/AdvReac Type Severity Reaction Status Date / Time clavulanic acid Allergy Severe Diarrhea Verified 08/14/24 09:03 cefdinir Allergy Unknown Diarrhea Verified 08/14/24 09:03 clarithromycin Allergy Unknown SEE COMMENT Verified 08/14/24 09:56 methylprednisolone (From AdvReac Intermediate Nausea and Verified 08/14/24 09:03 Medrol) Vomiting Vital Signs Vital Signs - 24 hr 08/14/24 08:30 08/14/24 08:49 08/14/24 08:55 Temperature 98.1 F 98.1 F Pulse Rate 138 H 133 H Respiratory Rate 24 H 26 H Blood Pressure 117/84 113/87 Pulse Oximetry 91 95 95 Oxygen Delivery Room Air Nasal Cannula Oxygen Flow Rate 4 08/14/24 09:20 08/14/24 10:00 08/14/24 10:25 Temperature Pulse Rate 129 H 122 H Respiratory Rate 26 H 24 H Blood Pressure 125/73 Pulse Oximetry 100 98 Oxygen Delivery Nasal Cannula Oxygen Flow Rate 2 08/14/24 10:25 08/14/24 10:25 08/14/24 11:16 Temperature Pulse Rate 123 H 123 H Respiratory Rate 24 H 16 Blood Pressure 129/64 Pulse Oximetry 98 97 Oxygen Delivery Nasal Cannula Oxygen Flow Rate 2 08/14/24 13:41 Temperature Pulse Rate 120 H Respiratory Rate 21 H Blood Pressure 119/64 Pulse Oximetry 96 Oxygen Delivery Oxygen Flow Rate Exam Narrative: General: well appearing, appears stated age. Pursed lip breathing HEENT: normocephalic, atraumatic. Mucous membranes moist. EOMI, PERRLA, bilateral sclera anicteric, no conjunctival injection. Neck supple without JVD, lymphadenopathy, or bruit. Respiratory: clear to ascultation bilaterally. No rales/rhonic/wheezes. Cardiovascular: Regular rate and rhythm, normal S1-S2 upon ascultation. No murmurs, rubs, or clicks. PMI is nondisplaced, capillary refill less than 3 second. Abdomen: Soft, round, no pulsatile masses, nondistended and nontender. No rebound, no guarding. No CVA tenderness, no hepatosplenomegaly. Bowel sounds present to all four quadrants. No high pitch or tinkling sounds, resonant to percussion. Extremities: No cyanosis, clubbing, or edema present. Pulses are palpable 2/2. Active ROM to all four extremities. Neuro: Alert and orientated x 4. PERRLA. Cranial nerves 2-12 intact without focal deficit. Skin: Warm, dry, and intact, without rash, erythema, or lesion. Psych: pleasant, cooperative, normal speech, normal affect, no hallucinations, no dysarthia H&P: Results Labs Labs: Short CBC 08/14/24 Range/Units 08:52 WBC 60.9 H* (4.5-10.0) K/mm3 Hgb 13.6 (12.0-15.0) g/dL Hct 43.0 (37.0-47.0) % Plt Count 436 H (150-375) k/mm3 BMP 08/14/24 08:51 Sodium 133 L Potassium 4.3 Chloride 99 Carbon Dioxide 20 L BUN 16 Creatinine 0.87 Glucose 165 H Calcium 9.3 Cardiac Enzymes 08/14/24 08/14/24 Range/Units 08:51 08:51 Troponin I < 0.012 Cancelled (0.000-0.034) ng/mL Liver Function 08/14/24 Range/Units 08:51 Total Bilirubin 0.9 (0.2-1.3) mg/dL AST 26 (14-36) U/L ALT 25 (6-35) U/L Alkaline Phosphatase 131 H (38-126) U/L Albumin 4.2 (3.5-5.1) g/dL Urine 08/14/24 Range/Units 12:09 Urine Color Yellow (Yellow) Urine Appearance Clear (Clear) Urine pH 5.0 (5.0-9.0) Ur Specific [place] > 1.045 H (1.001-1.035) Urine Protein 1+ H (Negative) mg/dL Urine Glucose (UA) Negative (Negative) mg/dL Assessment and Plan Assessment and plan (1) Pneumonia: Code(s): J18.9 - Pneumonia, unspecified organism Status: Acute Assessment and Plan: Started on Rocephin and azithromycin Given 2 L fluid with repeat lactic slightly higher, will gently hydrate recheck in 2 years Lactic acid still increasing to 4.[address] scan c abdomen pelvis with contrast Guaifenesin (2) Elevated WBC count: Qualifiers: Leukocytosis type: unspecified Qualified Code(s): D72.829 - Elevated white blood cell count, unspecified Code(s): D72.829 - Elevated white blood cell count, unspecified Status: Acute Assessment and Plan: WBC 60.9, patient was here about a year ago with leukocytosis at 10.5, per the patient she does not have a history of blood cancer Recheck CBC repeat WBC 45.7 Oncology consult Blood cultures pending UA negative for infection (3) Mild congestive heart failure: Code(s): I50.9 - Heart failure, unspecified Status: Acute Assessment and Plan: BNP 1220 Patient given 2 L fluid for sepsis for occult Monitor for fluid overload (4) Benign essential hypertension: Code(s): I10 - Essential (primary) hypertension Status: Acute (5) Chronic obstructive pulmonary disease, unspecified: Code(s): J44.9 - Chronic obstructive pulmonary disease, unspecified Status: Acute Assessment and Plan: Started on steroids in the ED Antibiotics per above Daily prednisone Quality VTE Prophylaxis VTE prophylaxis: mechanical ordered Hospitalist MIPS Advance Care Plan I have confirmed that the patient's Advanced Care Plan is present, code status is documented, or surrogate decision maker is listed in patient medical record.: Yes Medication Reconciliation I have utilized all available resources to obtain, update and review the patients current medications (includes all prescriptions, OTC, herbals, cannabis, and nutritional supplements).: Yes
--- NOTE | 2024-08-14 14:00 | PC.NURSE ---
Pt was contacted and updated on pt status.
--- NOTE | 2024-08-14 15:14 | ADMGEN ---
This patient, Zandra Santos, was admitted to Medical Room 345-. Patient/family oriented to hospital policies and general routines including ID bracelet, bed and alarms, visiting hours, pain management, procedures, bathroom and other care routines, personal items, smoking policy, room service/diet, and visiting hours. Information on how to activate the Rapid Response Team has been discussed. Patient/Family are encouraged to report perceived risks to care and to ask questions if they do not understand what they are told or what they should do.
[2024-08-14 15:15] LABS: Hematocrit 40.4 % (37.0-47.0); Hemoglobin 12.7 g/dL (12.0-15.0); Mean Corpuscular HGB Conc 31.4 g/dl (32-36); Mean Corpuscular Hemoglobin 26.6 pg (26-34); Mean Corpuscular Volume 84.5 fl (80-100); Mean Platelet Volume 10.1 fl (7.4-10.4); Platelet Count Result 376 k/mm3 (150-375); Red Blood Count 4.78 M/mm3 (4.2-5.4); Red Cell Distribution Width 15.2 % (11.5-14.5); White Blood Count 45.7 K/mm3 (4.5-10.0)
[2024-08-14 15:26] LABS: Lactic Acid Reflex 4.4 mmol/L (0.7-2.0)
[2024-08-14 15:36] LABS: Band Neutrophils Percent 5 % (0-6); Lymphocytes Absolute Manual 0.91 K/mm3 (1.1-4.5); Monocytes Absolute Manual 0.45 K/mm3 (0.1-0.90); Monocytes Percent Manual 1 % (3-9); Neutrophils Absolute Manual 44.32 K/mm3 (1.7-7.2); Neutrophils Percent Manual 92 % (46-73); Platelet Estimate Adequate (Adequate); Schistocytes None Seen; Total Cells Counted 100
[2024-08-14 15:37] LABS: Anisocytosis 1+; Hypochromasia 1+
[2024-08-14] MEDS: guaiFENesin/DEXTROMETHORPHAN 10 ML UDC PO ×2 (17:15→20:15)
[2024-08-14] MEDS: FLUTICASONE/SALMETEROL 230-21 MCG INHALER 1 PUFF 2 PUFF INHALATION (20:01)
[2024-08-14] MEDS: GABAPENTIN 300 MG CAPSULE BY MOUTH (20:15)
[2024-08-15] VITALS (15 sets, daily range): BP systolic 131–148; BP diastolic 59–66; PULSE 84–105; RESP 16–20; TEMP 36.1–36.3; O2SAT 95–96
[2024-08-15] MEDS: IPRATROPIUM 0.5 MG/ALBUTEROL SULFATE 2.5 MG AMPUL.NEB 3 ML INHALATION ×4 (02:47→20:17)
--- NOTE | 2024-08-15 02:48 | PCRCNOTE ---
0200 treatment omitted, patient was sleeping w/o distress. RN notified to call RT if patient needs a treatment later.
[2024-08-15] MEDS: SODIUM CHLORIDE 0.9% IV 1,000 ML 125 ML IV CONT (04:08)
[2024-08-15] MEDS: guaiFENesin/DEXTROMETHORPHAN 10 ML UDC PO ×5 (04:09→21:19)
[2024-08-15 05:42] LABS: Hematocrit 34.6 % (37.0-47.0); Hemoglobin 10.7 g/dL (12.0-15.0); Mean Corpuscular HGB Conc 30.9 g/dl (32-36); Mean Corpuscular Hemoglobin 26.2 pg (26-34); Mean Corpuscular Volume 84.8 fl (80-100); Mean Platelet Volume 10.6 fl (7.4-10.4); Platelet Count Result 319 k/mm3 (150-375); Red Blood Count 4.08 M/mm3 (4.2-5.4); Red Cell Distribution Width 15.2 % (11.5-14.5)
[2024-08-15 05:56] LABS: Anion Gap 9 mmol/L (4-12); Blood Urea Nitrogen 12 mg/dL (7-17); Calcium 7.6 mg/dL (8.4-10.2); Carbon Dioxide 21 mmol/L (22-30); Chloride 108 mmol/L (98-107); Estimated CRCL calculation 61 ml/min; Estimated Glomerular Filt Rate > 60; Glucose 158 mg/dL (65-110); Potassium 3.4 mmol/L (3.4-5.0); Sodium 138 mmol/L (137-145)
[2024-08-15 06:13] LABS: Band Neutrophils Percent 10 % (0-6); Lymphocytes Absolute Manual 0.68 K/mm3 (1.1-4.5); Lymphocytes Percent Manual 2 % (18-44); Neutrophils Absolute Manual 33.32 K/mm3 (1.7-7.2); Neutrophils Percent Manual 88 % (46-73); Platelet Estimate Adequate (Adequate); Total Cells Counted 100
[2024-08-15 06:14] LABS: Schistocytes None Seen
[2024-08-15] MEDS: FLUTICASONE/SALMETEROL 230-21 MCG INHALER 1 PUFF 2 PUFF INHALATION ×2 (07:54→20:17)
[2024-08-15] MEDS: predniSONE 20 MG TABLET 40 MG PO (08:07)
[2024-08-15] MEDS: amLODIPine BESYLATE 2.5 MG TABLET PO (08:07)
[2024-08-15] MEDS: buPROPion HCL XL (24 HR) 150 MG TABCR PO (08:08)
[2024-08-15] MEDS: PANTOPRAZOLE SOD SESQUIHYDRATE 20 MG TAB PO (08:08)
[2024-08-15] MEDS: MELOXICAM 7.5 MG TABLET 15 MG PO (08:08)
--- NOTE | 2024-08-15 09:21 | P.PNIM_ITS ---
Progress Note: A&P Assessment and Plan (1) Sepsis: Code(s): A41.9 - Sepsis, unspecified organism Status: Acute Assessment and Plan: * chest x-ray showing multifocal pneumonia, emphysema * CTA of the chest showing multifocal pneumonia and emphysema * initially meeting sepsis criteria with heart rate of 133, respiratory rate 24, acute respiratory failure requiring oxygen, white blood cell count 60.9, elevated lactic acid, pneumonia on CTA of chest and on chest x-ray * continue Rocephin and azithromycin * blood cultures were obtained and pending * patient was given 2 L normal saline while in the ED with improvement in her heart rate and respiratory rate. * Lactic acid 3.0> 4.4> 1.1 (2) Acute hypoxic respiratory failure: Code(s): J96.01 - Acute respiratory failure with hypoxia Status: Acute Assessment and Plan: secondary to pneumonia * chest x-ray showing multifocal lung disease consistent with pneumonia, emphysema * chest CTA was negative for PE showed multifocal pneumonia, mild emphysema * respiratory panel was negative for influenza a and B, RSV, COVID * patient was given 40 mg IV push Lasix while in the ED * blood cultures obtained and pending * continue DuoNebs * continue to wean O2 for sat greater than 92%, currently on 1 L nasal cannula (3) Pneumonia: Code(s): J18.9 - Pneumonia, unspecified organism Status: Acute Assessment and Plan: * chest x-ray showing multifocal lung disease consistent with pneumonia, emphysema * chest CTA was negative for PE showed multifocal pneumonia, mild emphysema * respiratory panel negative for influenza a and B, RSV, COVID * patient given 40 mg Lasix IV push while in the ED * continue guaifenesin * continue prednisone * white blood cell count 60.9 * blood cultures obtained and pending * continue DuoNebs * continue Rocephin and azithromycin * Will check an MRSA * will also check urine strep, urine Legionella, mycoplasma * continue to wean O2 for sat greater than 92%, currently on 1 L nasal cannula * pep therapy and incentive spirometry while awake (4) Elevated WBC count: Qualifiers: Leukocytosis type: unspecified Qualified Code(s): D72.829 - Elevated white blood cell count, unspecified Code(s): D72.829 - Elevated white blood cell count, unspecified Status: Acute Assessment and Plan: Hemoconcentration due to dehydration versus blood disorder * initial white blood cell count 60.9> 45.7> 34.0 * hematology oncology consult placed, however we do not have coverage this we ekend. * Will check WBC smear and CA-125--spoke with Lab who has placed the order for the smear however will not be read until Saturday. * continue to trend (5) Benign essential hypertension: Code(s): I10 - Essential (primary) hypertension Status: Acute Assessment and Plan: * blood pressure ranging 131/66 to 142/66 * continue amlodipine (6) Chronic obstructive pulmonary disease, unspecified: Code(s): J44.9 - Chronic obstructive pulmonary disease, unspecified Status: Acute Assessment and Plan: * continue DuoNeb Time Spent With Patient Time with patient: Greater than 35 minutes Subjective Date/time seen: 08/15/24 09:21 Interval history: Interval history: this is a 69-year-old female with a significant past medical history of hypertension, osteoporosis, CKD stage III, hyperlipidemia, vitamin-D deficiency, former smoker who presented to the hospital with reports of shortness a breath/dyspnea. Workup in the hospital included chest x-ray which showed multifocal lung disease consistent with pneumonia, emphysema. Chest CTA shown multifocal pneumonia, mild emphysema, gallbladder distention secondary to fasting, no PE. Abdomen pelvis CT was negative for acute appendicitis, diverticulitis or intestinal obstruction. Initial white blood count was 60.9, platelet count 436, INR was 1.1, D-dimer 1.97, sodium 133, chloride 99, bicarb 20, anion gap 14, blood sugars ranging 158-165, lactic acid 3.0> 4.4> 1.0, alkaline phosphate 131, C reactive protein 37.4, proBNP 1220. UA was obtained which showed a urine specific gravity of greater than 1.045, 1+ urine protein, 6-10 urine RBC, otherwise negative. Respiratory panel was negative for influenza a and B, RSV, COVID. Blood cultures were obtained and are pending. EKG showed sinus tachycardia with borderline right axis deviation with a rate of 135, QTC 457. Patient was given IV fluids, DuoNeb, Lasix, Rocephin and azithromycin while in the ED. Subjective: Patient denies any new complaints today. She is coughing however not productive. Spoke to her about her WBC count. She denies any recent steroid use, denies any cancer history. Family hx includes a mother who had ovarian cancer and father with skin cancer, however no blood cancers notable in family history. Likely this is due to hemoconcentration due to dehydration. She had a normal WBC count back in May. Labs, imaging, and EMR reviewed. Review of Systems Review of Systems: 12 systems were reviewed and are negativ e except for as per HPI. All systems reviewed & are unremarkable except as noted in HPI and below Exam Narrative: General: In no acute distress, well nourished Head: atraumatic, no encephalopathy Eyes: PERRLA, sclera clear ENT: moist mucous membranes, nasal passages clear Neck: supple, no JVD, no adenopathy, trachea midline Cardiac: Normal S1 and S2. No murmur, gallops or friction rubs, peripheral pulses intact. Respiratory: Lungs Wheezing and Rhonchi noted Right> Left lung, no adventitious lung sounds, currently on 2L NC Gastrointestinal: soft, non-distended, non-tender, normoactive bowel sounds. : voiding without difficulty. Extremities: moves all extremities well, no edema Skin: clean, dry, intact. No wounds or lesions. Neuro: Alert and oriented x4, cranial nerves intact, no neuro deficits. Psych: normal mood, normal affect, interactive Objective Data Vital Signs Vital Signs: Vital Signs - 24 hr 08/14/24 10:00 08/14/24 10:25 08/14/24 10:25 Temperature Pulse Rate 122 H Respiratory Rate 24 H Blood Pressure 125/73 Pulse Oximetry 100 98 98 Oxygen Delivery Nasal Cannula Nasal Cannula Oxygen Flow Rate 2 2 08/14/24 10:25 08/14/24 11:16 08/14/24 13:41 Temperature Pulse Rate 123 H 123 H 120 H Respiratory Rate 24 H 16 21 H Blood Pressure 129/64 119/64 Pulse Oximetry 97 96 Oxygen Delivery Oxygen Flow Rate 08/14/24 15:14 08/14/24 15:23 08/14/24 15:23 Temperature 97.0 F L Pulse Rate 113 H 111 H 111 H Respiratory Rate 18 20 20 Blood Pressure 123/61 Pulse Oximetry 96 94 Oxygen Delivery Nasal Cannula Oxygen Flow Rate 2 08/14/24 15:33 08/14/24 16:00 08/14/24 19:54 Temperature Pulse Rate 111 H 108 H 104 H Respiratory Rate 20 20 Blood Pressure Pulse Oximetry Oxygen Delivery Oxygen Flow Rate 08/14/24 20:00 08/14/24 20:02 08/14/24 20:10 Temperature Pulse Rate 104 H 104 H 104 H Respiratory Rate 20 20 Blood Pressure Pulse Oximetry 93 Oxygen Delivery Nasal Cannula Oxygen Flow Rate 1 08/14/24 20:45 08/14/24 21:22 08/15/24 00:00 Temperature 97.2 F L 97.2 F L Pulse Rate 104 H 104 H 96 Respiratory Rate 18 18 Blood Pressure 134/65 134/65 Pulse Oximetry 96 96 Oxygen Delivery Oxygen Flow Rate 08/15/24 02:00 08/15/24 04:00 08/15/24 06:00 Temperature 97.4 F L 97.0 F L Pulse Rate 95 91 85 Respiratory Rate 16 18 Blood Pressure 131/66 142/66 H Pulse Oximetry 95 96 Oxygen Delivery Oxygen Flow Rate 08/15/24 06:00 08/15/24 07:54 08/15/24 07:56 Temperature 97.0 F L Pulse Rate 85 102 H 104 H Respiratory Rate 18 20 20 Blood Pressure 142/66 H Pulse Oximetry 96 96 Oxygen Delivery Nasal Cannula Oxygen Flow Rate 1 Intake/Output Intake/Output: Intake & Output 08/12/24 08/13/24 08/14/24 08/15/24 23:59 23:59 23:59 23:59 Intake Total 2412.9 1183.3 Output Total 300 300 Balance 2112.9 883.3 Meds/Results Medications: Active Medications Generic Name Dose Route Start Last Admin Trade Name Freq PRN Reason Stop Dose Admin Acetaminophen 650 mg 08/14/24 14:14 Acetaminophen 325 Mg Tablet PO Q4H PRN Mild Pain (1-3) or Fever Albuterol/Ipratropium 3 ml 08/14/24 14:00 08/15/24 07:53 Ipratropium 0.5 Mg/Albuterol Sulfate 2.5 Mg Ampul.Neb 3 Ml INHALATION 3 ml Q6HRT DELFIN Administration Amlodipine Besylate 2.5 mg 08/15/24 09:00 08/15/24 08:07 Amlodipine Besylate 2.5 Mg Tablet PO 2.5 mg DAILY DELFIN Administration Aspirin 81 mg 08/15/24 09:00 Aspirin 81 Mg Enteric Tablet PO DAILY DELFIN Bupropion HCl 150 mg 08/15/24 09:00 08/15/24 08:08 Bupropion Hcl Xl (24 Hr) 150 Mg Tabcr PO 150 mg QAM DELFIN Administration Docusate Sodium 100 mg 08/14/24 17:00 08/14/24 17:13 Docusate Sodium 100 Mg Capsule PO Not Given BID DELFIN Gabapentin 300 mg 08/14/24 21:00 08/14/24 20:15 Gabapentin 300 Mg Capsule BY MOUTH 300 mg HS DELFIN Administration Guaifenesin/Dextromethorphan 10 ml 08/14/24 14:25 08/15/24 08:08 Guaifenesin/Dextromethorphan 10 Ml Udc PO 10 ml Q4HR DELFIN Administration Sodium Chloride 1,000 mls @ 125 mls/hr 08/14/24 13:05 08/15/24 04:08 Normal Saline Iv IV CONT 125 mls/hr .Q8H DELFIN Administration Ceftriaxone Sodium 1 gm in 50 mls @ 100 mls/hr 08/15/24 09:00 08/15/24 08:08 Rocephin 1 Gm/Ns 50 Ml IVPB 100 mls/hr Q24H DELFIN Administration Azithromycin 500 mg in 250 mls @ 250 mls/hr 08/15/24 09:00 Zithromax IVPB Q24H DELFIN Meloxicam 15 mg 08/15/24 09:00 08/15/24 08:08 Meloxicam 7.5 Mg Tablet PO 15 mg QAM DELFIN Administration Pantoprazole Sodium 20 mg 08/15/24 09:00 08/15/24 08:08 Pantoprazole Sod Sesquihydrate 20 Mg Tab PO 20 mg QAM DELFIN Administration Prednisone 40 mg 08/15/24 08:00 08/15/24 08:07 Prednisone 20 Mg Tablet PO 40 mg DAILY@0800 DELFIN Administration Rosuvastatin Calcium 20 mg 08/15/24 09:00 Rosuvastatin 20 Mg Tablet PO DAILY [facility] Fluticasone/Salmeterol 2 puff 08/14/24 20:00 08/15/24 07:54 Fluticasone/Salmeterol 230-21 Mcg Inhaler 1 Puff INHALATION 2 puff Q12HRT DELFIN Administration Radiology Results: ITS Impressions Chest X-Ray 08/14/24 09:29 IMPRESSION: 1. Multifocal lung disease, consistent with pneumonia. 2. Emphysema. Chest CTA 08/14/24 11:06 IMPRESSION: 1. No pulmonary embolus. 2. Multifocal pneumonia. 3. Mild emphysema. 4. Gallbladder distention, which may be secondary to fasting. Correlate with physical exam to exclude acute cholecystitis. Abdomen/Pelvis CT 08/14/24 18:17 IMPRESSION: 1. No evidence of appendicitis, diverticulitis or intestinal obstruction. The the Labs Labs: Laboratory Results - last 24 hr 08/14/24 08/14/24 08/14/24 08:51 09:13 10:08 WBC RBC Hgb Hct MCV MCH MCHC RDW Plt Count MPV Immature Gran % (Auto) Neut % (Auto) Lymph % (Auto) [place] % (Auto) Eos % (Auto) Baso % (Auto) Lymph # (Auto) [place] # (Auto) Eos # (Auto) Baso # (Auto) Abs Immat Gran (auto) Absolute Neuts (auto) Absolute Nucleated RBC Total Counted Neutrophils % (Manual) Band Neutrophils % Lymphocytes % (Manual) Monocytes % (Manual) Nucleated RBC % Abs Neuts (Manual) Abs Lymphs (Manual) Abs Monocytes (Manual) Platelet Estimate Hypochromasia Anisocytosis Schistocytes PT 14.6 INR 1.1 APTT 30.4 D-Dimer 1.97 H Sodium Potassium Chloride Carbon Dioxide Anion Gap BUN Creatinine Estim Creat Clear Calc Estimated GFR Glucose Lactic Acid 3.0 H Calcium Troponin I < 0.012 C-Reactive Protein 37.4 H NT-Pro-B Natriuret Pep 1220 H Urine Color Urine Appearance Urine pH Ur Specific [place] Urine Protein Urine Glucose (UA) Urine Ketones Ur Blood (Man) Urine Nitrate Urine Bilirubin Urine Urobilinogen Add Ur Microanalysis Leukocyte Esterase Rfl Urine RBC Urine WBC Ur Squamous Epith Cells Urine Bacteria Urine Casts Influenza A (RT-PCR) Negative Influenza B (RT-PCR) Negative RSV (RT-PCR) Negative SARS-CoV-2 RNA (RT-PCR) Negative 08/14/24 08/14/24 08/14/24 12:09 13:30 15:06 WBC 45.7 H RBC 4.78 Hgb 12.7 Hct 40.4 MCV 84.5 MCH 26.6 MCHC 31.4 L RDW 15.2 H Plt Count 376 H MPV 10.1 Immature Gran % (Auto) Not Reportable Neut % (Auto) Not Reportable Lymph % (Auto) Not Reportable [place] % (Auto) Not Reportable Eos % (Auto) Not Reportable Baso % (Auto) Not Reportable Lymph # (Auto) Not Reportable [place] # (Auto) Not Reportable Eos # (Auto) Not Reportable Baso # (Auto) Not Reportable Abs Immat Gran (auto) Not Reportable Absolute Neuts (auto) Not Reportable Absolute Nucleated RBC Not Reportable Total Counted 100 Neutrophils % (Manual) 92 H Band Neutrophils % 5 Lymphocytes % (Manual) 2.0 L Monocytes % (Manual) 1 L Nucleated RBC % Not Reportable Abs Neuts (Manual) 44.32 H Abs Lymphs (Manual) 0.91 L Abs Monocytes (Manual) 0.45 Platelet Estimate Adequate Hypochromasia 1+ Anisocytosis 1+ Schistocytes None seen PT INR APTT D-Dimer Sodium Potassium Chloride Carbon Dioxide Anion Gap BUN Creatinine Estim Creat Clear Calc Estimated GFR Glucose Lactic Acid 3.2 H 4.4 H* Calcium Troponin I C-Reactive Protein NT-Pro-B Natriuret Pep Urine Color Yellow Urine Appearance Clear Urine pH 5.0 Ur Specific [place] > 1.045 H Urine Protein 1+ H Urine Glucose (UA) Negative Urine Ketones Negative Ur Blood (Man) Trace Urine Nitrate Negative Urine Bilirubin Negative Urine Urobilinogen 0.2 Add Ur Microanalysis Reviewed Leukocyte Esterase Rfl Negative Urine RBC 6-10 H Urine WBC 0-5 Ur Squamous Epith Cells None seen Urine Bacteria None seen Urine Casts 0-2 Influenza A (RT-PCR) Influenza B (RT-PCR) RSV (RT-PCR) SARS-CoV-2 RNA (RT-PCR) 08/15/24 05:34 WBC 34.0 H RBC 4.08 L Hgb 10.7 L Hct 34.6 L MCV 84.8 MCH 26.2 MCHC 30.9 L RDW 15.2 H Plt Count 319 MPV 10.6 H Immature Gran % (Auto) Not Reportable Neut % (Auto) Not Reportable Lymph % (Auto) Not Reportable [place] % (Auto) Not Reportable Eos % (Auto) Not Reportable Baso % (Auto) Not Reportable Lymph # (Auto) Not Reportable [place] # (Auto) Not Reportable Eos # (Auto) Not Reportable Baso # (Auto) Not Reportable Abs Immat Gran (auto) Not Reportable Absolute Neuts (auto) Not Reportable Absolute Nucleated RBC Not Reportable Total Counted 100 Neutrophils % (Manual) 88 H Band Neutrophils % 10 H Lymphocytes % (Manual) 2 L Monocytes % (Manual) Nucleated RBC % Not Reportable Abs Neuts (Manual) 33.32 H Abs Lymphs (Manual) 0.68 L Abs Monocytes (Manual) Platelet Estimate Adequate Hypochromasia Anisocytosis Schistocytes None seen PT INR APTT D-Dimer Sodium 138 Potassium 3.4 Chloride 108 H Carbon Dioxide 21 L Anion Gap 9 BUN 12 Creatinine 0.66 L Estim Creat Clear Calc 61 Estimated GFR > 60 Glucose 158 H Lactic Acid 1.0 Calcium 7.6 L Troponin I C-Reactive Protein NT-Pro-B Natriuret Pep Urine Color Urine Appearance Urine pH Ur Specific [place] Urine Protein Urine Glucose (UA) Urine Ketones Ur Blood (Man) Urine Nitrate Urine Bilirubin Urine Urobilinogen Add Ur Microanalysis Leukocyte Esterase Rfl Urine RBC Urine WBC Ur Squamous Epith Cells Urine Bacteria Urine Casts Influenza A (RT-PCR) Influenza B (RT-PCR) RSV (RT-PCR) SARS-CoV-2 RNA (RT-PCR) Quality VTE Prophylaxis VTE prophylaxis: mechanical ordered
[2024-08-15] MEDS: AZITHROMYCIN 500 MG/NS 250 ML 500 MG/250 ML BAG 250 MG IVPB (10:50)
[2024-08-15 12:36] LABS: MRSA (PCR) NOT DETECTED (NOT DETECTE)
[2024-08-15] MEDS: traZODone HCL 50 MG TABLET 100 MG PO (21:18)
[2024-08-15] MEDS: ROSUVASTATIN 20 MG TABLET PO (21:19)
[2024-08-15] MEDS: GABAPENTIN 300 MG CAPSULE BY MOUTH (21:19)
[2024-08-16] VITALS (14 sets, daily range): BP systolic 122–147; BP diastolic 58–78; PULSE 84–104; RESP 16–20; TEMP 36.1–36.6; O2SAT 94–98
[2024-08-16] MEDS: guaiFENesin/DEXTROMETHORPHAN 10 ML UDC PO ×5 (05:20→20:28)
[2024-08-16 05:30] LABS: Basophils Absolute Auto 0.1 K/mm3 (0.0-0.1); Basophils Percent Auto 0.3 % (0.2-1.2); Hematocrit 33.2 % (37.0-47.0); Hemoglobin 10.3 g/dL (12.0-15.0); Immature Granulocyte Absolute 0.38 K/mm3 (0.00-0.031); Immature Granulocyte Percent A 1.4 % (0-0.5); Lymphocytes Absolute Auto 0.96 K/mm3 (0.9-3.2); Lymphocytes Percent Auto 3.5 % (18.3-44.2); Mean Corpuscular Hemoglobin 26.3 pg (26-34); Mean Corpuscular Volume 84.7 fl (80-100); Mean Platelet Volume 10.3 fl (7.4-10.4); Monocytes Absolute Auto 0.9 K/mm3 (0.1-0.6); Monocytes Percent Auto 3.4 % (2.6-8.5); Neutrophils Absolute Auto 25.2 K/mm3 (1.3-6.7); Neutrophils Percent Auto 91.4 % (45.5-73.1); Platelet Count Result 375 k/mm3 (150-375); Red Blood Count 3.92 M/mm3 (4.2-5.4); Red Cell Distribution Width 15.5 % (11.5-14.5); White Blood Count 27.5 K/mm3 (4.5-10.0)
[2024-08-16 05:50] LABS: Alanine Aminotransferase 59 U/L (6-35); Albumin Level 3.1 g/dL (3.5-5.1); Alkaline Phosphatase 102 U/L (38-126); Anion Gap 8 mmol/L (4-12); Aspartate Amino Transferase 48 U/L (14-36); Bilirubin,Total 0.3 mg/dL (0.2-1.3); Blood Urea Nitrogen 13 mg/dL (7-17); Calcium 7.6 mg/dL (8.4-10.2); Carbon Dioxide 23 mmol/L (22-30); Chloride 111 mmol/L (98-107); Estimated CRCL calculation 57 ml/min; Estimated Glomerular Filt Rate > 60; Glucose 142 mg/dL (65-110); Potassium 3.4 mmol/L (3.4-5.0); Sodium 142 mmol/L (137-145)
[2024-08-16 06:58] LABS: CA-125 16 U/mL (<35)
[2024-08-16] MEDS: IPRATROPIUM 0.5 MG/ALBUTEROL SULFATE 2.5 MG AMPUL.NEB 3 ML INHALATION ×3 (07:31→19:43)
[2024-08-16] MEDS: FLUTICASONE/SALMETEROL 230-21 MCG INHALER 1 PUFF 2 PUFF INHALATION ×2 (07:41→19:44)
[2024-08-16] MEDS: PANTOPRAZOLE SOD SESQUIHYDRATE 20 MG TAB PO (09:31)
[2024-08-16] MEDS: MELOXICAM 7.5 MG TABLET 15 MG PO (09:31)
[2024-08-16] MEDS: buPROPion HCL XL (24 HR) 150 MG TABCR PO (09:31)
[2024-08-16] MEDS: amLODIPine BESYLATE 2.5 MG TABLET PO (09:31)
[2024-08-16] MEDS: predniSONE 20 MG TABLET 40 MG PO (09:31)
[2024-08-16] MEDS: DOCUSATE SODIUM 100 MG CAPSULE PO (09:32)
[2024-08-16] MEDS: AZITHROMYCIN 500 MG/NS 250 ML 500 MG/250 ML BAG 250 MG IVPB (10:29)
--- NOTE | 2024-08-16 11:42 | P.PNIM_ITS ---
Progress Note: A&P Assessment and Plan (1) Sepsis: Code(s): A41.9 - Sepsis, unspecified organism Status: Acute Assessment and Plan: * chest x-ray showing multifocal pneumonia, emphysema * CTA of the chest showing multifocal pneumonia and emphysema * initially meeting sepsis criteria with heart rate of 133, respiratory rate 24, acute respiratory failure requiring oxygen, white blood cell count 60.9, elevated lactic acid, pneumonia on CTA of chest and on chest x-ray * continue Rocephin and azithromycin * blood cultures are negative to date * [place] [id number] [place] [id number] * fluids stopped lactic trending down * continue present care iv abx oral steroids and duonebs (2) Acute hypoxic respiratory failure: Code(s): J96.01 - Acute respiratory failure with hypoxia Status: Acute Assessment and Plan: secondary to pneumonia * chest x-ray showing multifocal lung disease consistent with pneumonia, emphysema * chest CTA was negative for PE showed multifocal pneumonia, mild emphysema * respiratory panel was negative for influenza a and B, RSV, COVID * rpt cxr laurie am (3) Pneumonia: Code(s): J18.9 - Pneumonia, unspecified organism Status: Acute Assessment and Plan: * chest x-ray showing multifocal lung disease consistent with pneumonia, emphysema * chest CTA was negative for PE showed multifocal pneumonia, mild emphysema * respiratory panel negative for influenza a and B, RSV, COVID * patient given 40 mg Lasix IV push while in the ED * rpt cxr laurie am rpt lasix iv if cxr shows pulmonary edema * pt had cxr on 08/14 (4) Elevated WBC count: Qualifiers: Leukocytosis type: unspecified Qualified Code(s): D72.829 - Elevated white blood cell count, unspecified Code(s): D72.829 - Elevated white blood cell count, unspecified Status: Acute Assessment and Plan: Hemoconcentration due to dehydration versus blood disorder * pt wcc trending down (5) Benign essential hypertension: Code(s): I10 - Essential (primary) hypertension Status: Acute Assessment and Plan: * blood pressure ranging 131/66 to 142/66 * continue amlodipine (6) Chronic obstructive pulmonary disease, unspecified: Code(s): J44.9 - Chronic obstructive pulmonary disease, unspecified Status: Acute Assessment and Plan: * continue DuoNeb Subjective Date/time seen: 08/16/24 11:42 Interval history: 69-year-old female with a significant past medical history of hypertension, osteoporosis, CKD stage III, hyperlipidemia, vitamin-D deficiency, former smoker who presented to the hospital with reports of shortness a breath/dyspnea. Workup in the hospital included chest x-ray which showed multifocal lung disease consistent with pneumonia, emphysema. Chest CTA shown multifocal pneumonia, mild emphysema, gallbladder distention secondary to fasting, no PE. Abdomen pelvis CT was negative for acute appendicitis, diverticulitis or intestinal obstruction. Initial white blood count was 60.9, platelet count 436, INR was 1.1, D-dimer 1.97, sodium 133, chloride 99, bicarb 20, anion gap 14, blood sugars ranging 158-165, lactic acid 3.0> 4.4> 1.0, alkaline phosphate 131, C reactive protein 37.4, proBNP 1220. UA was obtained which showed a urine specific gravity of greater than 1.045, 1+ urine protein, 6-10 urine RBC, otherwise negative. Respiratory panel was negative for influenza a and B, RSV, COVID. Pt admitted with hypoxia, sepsis and pneumonia pt feels severe sob at rest still on 3 liters of oxygen presently unable to wean off usually in good health has not been in hospital for years since childbirth Review of Systems Review of Systems: Severe SOB at rest and wheezy lungs Exam Narrative: General:SOB at rest on oxygen anxious worried about her health Cardiac: Normal S1 and S2. Respiratory: BL diffuse wheezy lungs Gastrointestinal: soft, non-distended, non-tender, normoactive bowel sounds. : voiding without difficulty. Extremities: moves all extremities well, no edema Skin: clean, dry, intact. No wounds or lesions. Neuro: Alert and oriented x4, cranial nerves intact, no neuro deficits. Psych: normal mood, normal affect, interactive Objective Data Vital Signs Vital Signs: Vital Signs - 24 hr 08/15/24 12:00 08/15/24 13:34 08/15/24 16:00 Temperature Pulse Rate 100 102 H 102 H Respiratory Rate 20 Blood Pressure Pulse Oximetry Oxygen Delivery Oxygen Flow Rate Fraction of Inspired Oxygen 08/15/24 16:13 08/15/24 20:00 08/15/24 20:00 Temperature 36.3 C L Pulse Rate 95 84 Respiratory Rate 16 Blood Pressure 146/66 H Pulse Oximetry 95 95 Oxygen Delivery Nasal Cannula Oxygen Flow Rate 2 Fraction of Inspired Oxygen 08/15/24 20:17 08/15/24 20:17 08/15/24 20:26 Temperature Pulse Rate 105 H 102 H Respiratory Rate 20 20 Blood Pressure Pulse Oximetry 95 Oxygen Delivery Nasal Cannula Oxygen Flow Rate 2 Fraction of Inspired Oxygen 08/15/24 22:45 08/16/24 00:00 08/16/24 04:00 Temperature 36.1 C L Pulse Rate 100 95 84 Respiratory Rate 16 Blood Pressure 148/59 H Pulse Oximetry 95 Oxygen Delivery Oxygen Flow Rate Fraction of Inspired Oxygen 08/16/24 06:00 08/16/24 07:32 08/16/24 07:32 Temperature 36.1 C L Pulse Rate 104 H 94 Respiratory Rate 18 20 Blood Pressure 122/65 Pulse Oximetry 97 94 Oxygen Delivery Nasal Cannula Oxygen Flow Rate 2 Fraction of Inspired Oxygen 28 08/16/24 07:41 08/16/24 08:00 08/16/24 08:00 Temperature 36.4 C Pulse Rate 100 94 97 Respiratory Rate 20 18 18 Blood Pressure 139/58 L Pulse Oximetry 95 95 Oxygen Delivery Nasal Cannula Oxygen Flow Rate 3 Fraction of Inspired Oxygen 08/16/24 08:00 Temperature Pulse Rate 97 Respiratory Rate Blood Pressure Pulse Oximetry Oxygen Delivery Oxygen Flow Rate Fraction of Inspired Oxygen Intake/Output Intake/Output: Intake & Output 08/13/24 08/14/24 08/15/24 08/17/24 23:59 23:59 23:59 00:59 Intake Total 3412.9 2943.3 740 Output Total 300 800 4 Balance 3112.9 2143.3 736 Meds/Results Medications: Active Medications Generic Name Dose Route Start Last Admin Trade Name Freq PRN Reason Stop Dose Admin Acetaminophen 650 mg 08/14/24 14:14 Acetaminophen 325 Mg Tablet PO Q4H PRN Mild Pain (1-3) or Fever Albuterol/Ipratropium 3 ml 08/14/24 14:00 08/16/24 07:31 Ipratropium 0.5 Mg/Albuterol Sulfate 2.5 Mg Ampul.Neb 3 Ml INHALATION 3 ml Q6HRT DELFIN Administration Amlodipine Besylate 2.5 mg 08/15/24 09:00 08/16/24 09:31 Amlodipine Besylate 2.5 Mg Tablet PO 2.5 mg DAILY DELFIN Administration Aspirin 81 mg 08/15/24 21:00 08/15/24 21:18 Aspirin 81 Mg Enteric Tablet PO Not Given Q48H DELFIN Bupropion HCl 150 mg 08/15/24 09:00 08/16/24 09:31 Bupropion Hcl Xl (24 Hr) 150 Mg Tabcr PO 150 mg QAM DELFIN Administration Docusate Sodium 100 mg 08/14/24 17:00 08/16/24 09:32 Docusate Sodium 100 Mg Capsule PO 100 mg BID DELFIN Administration Gabapentin 300 mg 08/14/24 21:00 08/15/24 21:19 Gabapentin 300 Mg Capsule BY MOUTH 300 mg HS DELFIN Administration Guaifenesin/Dextromethorphan 10 ml 08/14/24 14:25 08/16/24 09:31 Guaifenesin/Dextromethorphan 10 Ml Udc PO 10 ml Q4HR DELFIN Administration Ceftriaxone Sodium 1 gm in 50 mls @ 100 mls/hr 08/15/24 09:00 08/16/24 09:26 Rocephin 1 Gm/Ns 50 Ml IVPB 100 mls/hr Q24H DELFIN Administration Azithromycin 500 mg in 250 mls @ 250 mls/hr 08/15/24 09:00 08/16/24 10:29 Zithromax IVPB 250 mls/hr Q24H DELFIN Administration Meloxicam 15 mg 08/15/24 09:00 08/16/24 09:31 Meloxicam 7.5 Mg Tablet PO 15 mg QAM DELFIN Administration Pantoprazole Sodium 20 mg 08/15/24 09:00 08/16/24 09:31 Pantoprazole Sod Sesquihydrate 20 Mg Tab PO 20 mg QAM DELFIN Administration Prednisone 40 mg 08/15/24 08:00 08/16/24 09:31 Prednisone 20 Mg Tablet PO 40 mg DAILY@0800 DELFIN Administration Rosuvastatin Calcium 20 mg 08/15/24 21:00 08/15/24 21:19 Rosuvastatin 20 Mg Tablet PO 20 mg HS DELFIN Administration Fluticasone/Salmeterol 2 puff 08/14/24 20:00 08/16/24 07:41 Fluticasone/Salmeterol 230-21 Mcg Inhaler 1 Puff INHALATION 2 puff Q12HRT DELFIN Administration Trazodone HCl 100 mg 08/15/24 20:26 08/15/24 21:18 Trazodone Hcl 50 Mg Tablet PO 100 mg HS PRN Administration Insomnia Radiology Results: ITS Impressions Chest X-Ray 08/14/24 09:29 IMPRESSION: 1. Multifocal lung disease, consistent with pneumonia. 2. Emphysema. Chest CTA 08/14/24 11:06 IMPRESSION: 1. No pulmonary embolus. 2. Multifocal pneumonia. 3. Mild emphysema. 4. Gallbladder distention, which may be secondary to fasting. Correlate with physical exam to exclude acute cholecystitis. Abdomen/Pelvis CT 08/14/24 18:17 IMPRESSION: 1. No evidence of appendicitis, diverticulitis or intestinal obstruction. The the Labs Labs: Laboratory Results - last 24 hr 08/15/24 08/15/24 08/16/24 05:32 11:05 05:22 WBC 27.5 H RBC 3.92 L Hgb 10.3 L Hct 33.2 L MCV 84.7 MCH 26.3 MCHC 31.0 L RDW 15.5 H Plt Count 375 MPV 10.3 Immature Gran % (Auto) 1.4 H Neut % (Auto) 91.4 H Lymph % (Auto) 3.5 L [place] % (Auto) 3.4 Eos % (Auto) 0.0 Baso % (Auto) 0.3 Lymph # (Auto) 0.96 [place] # (Auto) 0.9 H Eos # (Auto) 0.0 Baso # (Auto) 0.1 Abs Immat Gran (auto) 0.38 H Absolute Neuts (auto) 25.2 H Absolute Nucleated RBC 0.000 Nucleated RBC % 0.0 Sodium 142 Potassium 3.4 Chloride 111 H Carbon Dioxide 23 Anion Gap 8 BUN 13 Creatinine 0.71 Estim Creat Clear Calc 57 Estimated GFR > 60 Glucose 142 H Calcium 7.6 L Total Bilirubin 0.3 AST 48 H ALT 59 H Alkaline Phosphatase 102 Total Protein 6.0 L Albumin 3.1 L CA 125 Antigen 16 Nasal MRSA (PCR) Not detected
[2024-08-16] MEDS: GABAPENTIN 300 MG CAPSULE BY MOUTH (20:26)
[2024-08-16] MEDS: traZODone HCL 50 MG TABLET 100 MG PO (20:26)
[2024-08-16] MEDS: ROSUVASTATIN 20 MG TABLET PO (20:27)
[2024-08-16] MEDS: FLUTICASONE PROPIONATE 0.05% NA SPR 16 GM BTL (*BKC) 1 SPRAY NASAL (20:28)
[2024-08-17] VITALS (16 sets, daily range): BP systolic 135–151; BP diastolic 62–79; PULSE 79–107; RESP 16–24; TEMP 36.2–36.6; O2SAT 93–97
[2024-08-17] MEDS: IPRATROPIUM 0.5 MG/ALBUTEROL SULFATE 2.5 MG AMPUL.NEB 3 ML INHALATION ×4 (02:39→20:02)
--- NOTE | 2024-08-17 02:40 | PCRCNOTE ---
Patient declined treatment while sleeping. RT will give treatment, if needed/requested.
[2024-08-17 05:54] LABS: Basophils Percent Auto 0.2 % (0.2-1.2); Hematocrit 32.4 % (37.0-47.0); Hemoglobin 10.1 g/dL (12.0-15.0); Immature Granulocyte Absolute 0.27 K/mm3 (0.00-0.031); Immature Granulocyte Percent A 1.3 % (0-0.5); Lymphocytes Absolute Auto 1.41 K/mm3 (0.9-3.2); Lymphocytes Percent Auto 6.8 % (18.3-44.2); Mean Corpuscular HGB Conc 31.2 g/dl (32-36); Mean Corpuscular Hemoglobin 26.6 pg (26-34); Mean Corpuscular Volume 85.5 fl (80-100); Mean Platelet Volume 10.4 fl (7.4-10.4); Monocytes Absolute Auto 1.3 K/mm3 (0.1-0.6); Monocytes Percent Auto 6.4 % (2.6-8.5); Neutrophils Absolute Auto 17.8 K/mm3 (1.3-6.7); Neutrophils Percent Auto 85.3 % (45.5-73.1); Platelet Count Result 347 k/mm3 (150-375); Red Blood Count 3.79 M/mm3 (4.2-5.4); Red Cell Distribution Width 15.6 % (11.5-14.5); White Blood Count 20.9 K/mm3 (4.5-10.0)
[2024-08-17] MEDS: guaiFENesin/DEXTROMETHORPHAN 10 ML UDC PO ×5 (06:07→19:59)
[2024-08-17 06:13] LABS: Alanine Aminotransferase 55 U/L (6-35); Albumin Level 3.2 g/dL (3.5-5.1); Alkaline Phosphatase 101 U/L (38-126); Anion Gap 6 mmol/L (4-12); Aspartate Amino Transferase 28 U/L (14-36); Bilirubin,Total 0.3 mg/dL (0.2-1.3); Blood Urea Nitrogen 12 mg/dL (7-17); Calcium 7.7 mg/dL (8.4-10.2); Carbon Dioxide 29 mmol/L (22-30); Chloride 107 mmol/L (98-107); Estimated CRCL calculation 56 ml/min; Estimated Glomerular Filt Rate > 60; Glucose 106 mg/dL (65-110); Potassium 3.2 mmol/L (3.4-5.0); Sodium 142 mmol/L (137-145)
[2024-08-17 06:17] LABS: Lactic Acid Reflex 1.2 mmol/L (0.7-2.0)
[2024-08-17] MEDS: PANTOPRAZOLE SOD SESQUIHYDRATE 20 MG TAB PO (09:22)
[2024-08-17] MEDS: MELOXICAM 7.5 MG TABLET 15 MG PO (09:22)
[2024-08-17] MEDS: predniSONE 20 MG TABLET 40 MG PO (09:22)
[2024-08-17] MEDS: amLODIPine BESYLATE 2.5 MG TABLET PO (09:22)
[2024-08-17] MEDS: AZITHROMYCIN 500 MG/NS 250 ML 500 MG/250 ML BAG 250 MG IVPB (09:23)
[2024-08-17] MEDS: ENOXAPARIN 40 MG/0.4 ML SYRINGE SUB-Q (09:23)
[2024-08-17] MEDS: DOCUSATE SODIUM 100 MG CAPSULE PO (09:23)
[2024-08-17] MEDS: buPROPion HCL XL (24 HR) 150 MG TABCR PO (09:23)
[2024-08-17] MEDS: FLUTICASONE PROPIONATE 0.05% NA SPR 16 GM BTL (*BKC) 1 SPRAY NASAL ×2 (09:25→19:58)
--- NOTE | 2024-08-17 09:28 | P.CDI_ITS ---
<Statement entered by Komal Bacon APRN - 08/17/24 13:23> This documentation has been reviewed and approved. CDI Query Clarification Request Please specify type and acuity of heart failure if known. * Acute * Chronic * Acute on Chronic * Unknown * Systolic * Diastolic * Combined Systolic and Diastolic * Unknown The chart reflects the followin) Mild congestive heart failure: Code(s): I50.9 - Heart failure, unspecified Status: Acute Assessment and Plan: BNP 1220 Patient given 2 L fluid for sepsis for occult Monitor for fluid overload Treatment: IV lasix IV x1 <Mildred Owusu RN - Last Filed: 08/17/24 09:55> Clarified Diagnosis Clarified Diagnosis: acute, unknown <Komal Bacon APRN - Last Filed: 08/17/24 13:23>
[2024-08-17 10:33] LABS: Procalcitonin 0.7 ng/mL
--- NOTE | 2024-08-17 10:38 | P.PNIM_ITS ---
Progress Note: A&P Assessment and Plan (1) Sepsis: Code(s): A41.9 - Sepsis, unspecified organism Status: Acute Assessment and Plan: * chest x-ray showing multifocal pneumonia, emphysema * CTA of the chest showing multifocal pneumonia and emphysema * initially meeting sepsis criteria with heart rate of 133, respiratory rate 24, acute respiratory failure requiring oxygen, white blood cell count 60.9, elevated lactic acid, pneumonia on CTA of chest and on chest x-ray * continue Rocephin and azithromycin * blood cultures are negative to date * [place] [address] [place] [id number] * fluids stopped lactic trending down * continue present care iv abx oral steroids and duonebs * wbc trending down (2) Acute hypoxic respiratory failure: Code(s): J96.01 - Acute respiratory failure with hypoxia Status: Acute Assessment and Plan: secondary to pneumonia * chest x-ray showing multifocal lung disease consistent with pneumonia, emphysema * chest CTA was negative for PE showed multifocal pneumonia, mild emphysema * respiratory panel was negative for influenza a and B, RSV, COVID * rpt cxr laurie am * will consult pulm -pt will need an outpt f/u with them (3) Pneumonia: Code(s): J18.9 - Pneumonia, unspecified organism Status: Acute Assessment and Plan: * chest x-ray showing multifocal lung disease consistent with pneumonia, emphysema * chest CTA was negative for PE showed multifocal pneumonia, mild emphysema * respiratory panel negative for influenza a and B, RSV, COVID * patient given 40 mg Lasix IV push while in the ED * rpt cxr laurie am rpt lasix iv if cxr shows pulmonary edema * pt had cxr on 08/14 * azithromycin and ceftriaxone-continue (4) Elevated WBC count: Qualifiers: Leukocytosis type: unspecified Qualified Code(s): D72.829 - Elevated white blood cell count, unspecified Code(s): D72.829 - Elevated white blood cell count, unspecified Status: Acute Assessment and Plan: Hemoconcentration due to dehydration versus blood disorder * pt wcc trending down (5) Benign essential hypertension: Code(s): I10 - Essential (primary) hypertension Status: Acute Assessment and Plan: * blood pressure ranging 131/66 to 142/66 * continue amlodipine (6) Chronic obstructive pulmonary disease, unspecified: Code(s): J44.9 - Chronic obstructive pulmonary disease, unspecified Status: Acute Assessment and Plan: * continue DuoNeb Time Spent With Patient Time with patient: 25 - 35 minutes Subjective Date/time seen: 08/17/24 10:38 Interval history: 69-year-old female with a significant past medical history of hypertension, osteoporosis, CKD stage III, hyperlipidemia, vitamin-D deficiency, former smoker who presented to the hospital with reports of shortness a breath/dyspnea. Workup in the hospital included chest x-ray which showed multifocal lung disease consistent with pneumonia, emphysema. Chest CTA shown multifocal pneumonia, mild emphysema, gallbladder distention secondary to fasting, no PE. Abdomen pelvis CT was negative for acute appendicitis, diverticulitis or intestinal obstruction. Initial white blood count was 60.9, platelet count 436, INR was 1.1, D-dimer 1.97, sodium 133, chloride 99, bicarb 20, anion gap 14, blood s ugars ranging 158-165, lactic acid 3.0> 4.4> 1.0, alkaline phosphate 131, C reactive protein 37.4, proBNP 1220. UA was obtained which showed a urine specific gravity of greater than 1.045, 1+ urine protein, 6-10 urine RBC, otherwise negative. Respiratory panel was negative for influenza a and B, RSV, COVID. Pt admitted with hypoxia, sepsis and pneumonia. pt feels severe sob at rest still on 2-3 liters of oxygen presently unable to wean off usually in good health - never on on oxygen before. Had h/o emphysema but never seen pulm. Used to smoke for over 50 years but quite 2018. Review of Systems Review of Systems: Severe SOB at rest and wheezy lungs All systems reviewed & are unremarkable except as noted in HPI and below Exam Narrative: General:SOB at rest on oxygen anxious worried about her health Cardiac: Normal S1 and S2. Respiratory: BL diffuse wheezy lungs Gastrointestinal: soft, non-distended, non-tender, normoactive bowel sounds. : voiding without difficulty. Extremities: moves all extremities well, no edema Skin: clean, dry, intact. No wounds or lesions. Neuro: Alert and oriented x4, cranial nerves intact, no neuro deficits. Psych: normal mood, normal affect, interactive Objective Data Vital Signs Vital Signs: Vital Signs - 24 hr 08/16/24 12:00 08/16/24 12:00 08/16/24 13:25 Temperature 97.3 F L Pulse Rate 88 100 Respiratory Rate 18 Blood Pressure 138/59 L Pulse Oximetry 97 96 Oxygen Delivery Nasal Cannula Oxygen Flow Rate 3 Fraction of Inspired Oxygen 32 08/16/24 13:25 08/16/24 13:39 08/16/24 16:00 Temperature 97.8 F Pulse Rate 96 99 93 Respiratory Rate 20 20 18 Blood Pressure 128/70 Pulse Oximetry 96 Oxygen Delivery Oxygen Flow Rate Fraction of Inspired Oxygen 08/16/24 16:00 08/16/24 19:43 08/16/24 19:43 Temperature Pulse Rate 96 90 Respiratory Rate 20 Blood Pressure Pulse Oximetry 98 Oxygen Delivery Nasal Cannula Oxygen Flow Rate 2 Fraction of Inspired Oxygen 32 08/16/24 19:58 08/16/24 20:00 08/16/24 20:00 Temperature Pulse Rate 90 97 Respiratory Rate 20 Blood Pressure Pulse Oximetry 95 Oxygen Delivery Nasal Cannula Oxygen Flow Rate 2 Fraction of Inspired Oxygen 08/16/24 21:17 08/17/24 00:00 08/17/24 00:35 Temperature 97.2 F L 97.3 F L Pulse Rate 101 H 79 80 Respiratory Rate 16 18 Blood Pressure 147/78 H 139/64 Pulse Oximetry 95 97 Oxygen Delivery Oxygen Flow Rate Fraction of Inspired Oxygen 08/17/24 04:00 08/17/24 05:55 08/17/24 08:00 Temperature 97.2 F L 97.8 F Pulse Rate 89 87 92 Respiratory Rate 16 16 Blood Pressure 151/66 H 138/62 Pulse Oximetry 95 93 Oxygen Delivery Oxygen Flow Rate Fraction of Inspired Oxygen 08/17/24 08:50 08/17/24 08:50 08/17/24 09:01 Temperature Pulse Rate 95 98 Respiratory Rate 20 20 Blood Pressure Pulse Oximetry 94 Oxygen Delivery Oxygen Flow Rate 2 Fraction of Inspired Oxygen Intake/Output Intake/Output: Intake & Output 08/14/24 08/15/24 08/17/24 08/17/24 23:59 23:59 00:59 23:59 Intake Total 3412.9 2943.3 2070 1030 Output Total 300 800 204 900 Balance 3112.9 2143.3 1866 130 Meds/Results Medications: Active Medications Generic Name Dose Route Start Last Admin Trade Name Freq PRN Reason Stop Dose Admin Acetaminophen 650 mg 08/14/24 14:14 Acetaminophen 325 Mg Tablet PO Q4H PRN Mild Pain (1-3) or Fever Albuterol/Ipratropium 3 ml 08/14/24 14:00 08/17/24 08:50 Ipratropium 0.5 Mg/Albuterol Sulfate 2.5 Mg Ampul.Neb 3 Ml INHALATION 3 ml Q6HRT DELFIN Administration Amlodipine Besylate 2.5 mg 08/15/24 09:00 08/17/24 09:22 Amlodipine Besylate 2.5 Mg Tablet PO 2.5 mg DAILY DELFIN Administration Aspirin 81 mg 08/15/24 21:00 08/15/24 21:18 Aspirin 81 Mg Enteric Tablet PO Not Given Q48H DELFIN Bupropion HCl 150 mg 08/15/24 09:00 08/17/24 09:23 Bupropion Hcl Xl (24 Hr) 150 Mg Tabcr PO 150 mg QAM DELFIN Administration Docusate Sodium 100 mg 08/14/24 17:00 08/17/24 09:23 Docusate Sodium 100 Mg Capsule PO 100 mg BID DELFIN Administration Enoxaparin Sodium 40 mg 08/17/24 09:00 08/17/24 09:23 Enoxaparin 40 Mg/0.4 Ml Syringe SUB-Q 40 mg DAILY DELFIN Administration Fluticasone Propionate 1 spray 08/16/24 21:00 08/17/24 09:25 Fluticasone Propionate 0.05% Na Spr 16 Gm Btl (*Bkc) NASAL 1 spray Q12HR DELFIN Administration Gabapentin 300 mg 08/14/24 21:00 08/16/24 20:26 Gabapentin 300 Mg Capsule BY MOUTH 300 mg HS DELFIN Administration Guaifenesin/Dextromethorphan 10 ml 08/14/24 14:25 08/17/24 09:21 Guaifenesin/Dextromethorphan 10 Ml Udc PO 10 ml Q4HR DELFIN Administration Ceftriaxone Sodium 1 gm in 50 mls @ 100 mls/hr 08/15/24 09:00 08/17/24 09:24 Rocephin 1 Gm/Ns 50 Ml IVPB 100 mls/hr Q24H DELFIN Administration Azithromycin 500 mg in 250 mls @ 250 mls/hr 08/15/24 09:00 08/17/24 09:23 Zithromax IVPB 250 mls/hr Q24H DELFIN Administration Meloxicam 15 mg 08/15/24 09:00 08/17/24 09:22 Meloxicam 7.5 Mg Tablet PO 15 mg QAM DELFIN Administration Pantoprazole Sodium 20 mg 08/15/24 09:00 08/17/24 09:22 Pantoprazole Sod Sesquihydrate 20 Mg Tab PO 20 mg QAM DELFIN Administration Prednisone 40 mg 08/15/24 08:00 08/17/24 09:22 Prednisone 20 Mg Tablet PO 40 mg DAILY@0800 DELFIN Administration Rosuvastatin Calcium 20 mg 08/15/24 21:00 08/16/24 20:27 Rosuvastatin 20 Mg Tablet PO 20 mg HS DELFIN Administration Fluticasone/Salmeterol 2 puff 08/14/24 20:00 08/16/24 19:44 Fluticasone/Salmeterol 230-21 Mcg Inhaler 1 Puff INHALATION 2 puff Q12HRT DELFIN Administration Trazodone HCl 100 mg 08/15/24 20:26 08/16/24 20:26 Trazodone Hcl 50 Mg Tablet PO 100 mg HS PRN Administration Insomnia Radiology Results: ITS Impressions Chest CTA 08/14/24 11:06 IMPRESSION: 1. No pulmonary embolus. 2. Multifocal pneumonia. 3. Mild emphysema. 4. Gallbladder distention, which may be secondary to fasting. Correlate with physical exam to exclude acute cholecystitis. Abdomen/Pelvis CT 08/14/24 18:17 IMPRESSION: 1. No evidence of appendicitis, diverticulitis or intestinal obstruction. The the Chest X-Ray 08/17/24 06:23 Impression: Stable haziness left lung apex, possibly chronic scarring versus pneumonia. Underlying COPD or other chronic interstitial disease. Labs Labs: Laboratory Results - last 24 hr 08/17/24 05:33 WBC 20.9 H RBC 3.79 L Hgb 10.1 L Hct 32.4 L MCV 85.5 MCH 26.6 MCHC 31.2 L RDW 15.6 H Plt Count 347 MPV 10.4 Immature Gran % (Auto) 1.3 H Neut % (Auto) 85.3 H Lymph % (Auto) 6.8 L [place] % (Auto) 6.4 Eos % (Auto) 0.0 Baso % (Auto) 0.2 Lymph # (Auto) 1.41 [place] # (Auto) 1.3 H Eos # (Auto) 0.0 Baso # (Auto) 0.0 Abs Immat Gran (auto) 0.27 H Absolute Neuts (auto) 17.8 H Absolute Nucleated RBC 0.000 Nucleated RBC % 0.0 Sodium 142 Potassium 3.2 L Chloride 107 Carbon Dioxide 29 Anion Gap 6 BUN 12 Creatinine 0.72 Estim Creat Clear Calc 56 Estimated GFR > 60 Glucose 106 Lactic Acid 1.2 Calcium 7.7 L Total Bilirubin 0.3 AST 28 ALT 55 H Alkaline Phosphatase 101 Total Protein 6.0 L Albumin 3.2 L Procalcitonin 0.7 Quality VTE Prophylaxis VTE prophylaxis: mechanical ordered
--- NOTE | 2024-08-17 10:53 | P.CONPL_ITS ---
Assessment and Plan Assessment and plan (1) Chronic obstructive pulmonary disease, unspecified: Code(s): J44.9 - Chronic obstructive pulmonary disease, unspecified Status: Acute (2) Multifocal pneumonia: Code(s): J18.9 - Pneumonia, unspecified organism Status: Acute Assessment and Plan: This 69-year-old female with a history of emphysema, currently managed with maintenance bronchodilators, presented with fever, leukocytosis, and shortness of breath due to multifocal pneumonia. This pneumonia likely developed following a viral pneumonia. The patient exhibited severe leukocytosis with a left shift and is currently being treated with ceftriaxone and Zithromax. Her clinical status appears to be improving, although she continues to experience shortness of breath on moving out of bed; localized wheezing upon auscultation. The white blood cell count is trending downward, and MRSA screening is negative. Plan: Continue ceftriaxone at 2 g every 24 hours. Discontinue Zithromax and initiate treatment with levofloxacin. Maintain short-acting bronchodilators every 4 hours as needed. Continue deep vein thrombosis (DVT) prophylaxis. I will continue to follow the patient along with you. (3) Acute hypoxic respiratory failure: Code(s): J96.01 - Acute respiratory failure with hypoxia Status: Acute History of Present Illness History of Present Illness Consult date: 08/17/24 Chief complaint: Multifocal Pneumonia/Elevated WBC/Mild CHF Narrative: This 69-year-old female presented with increasing shortness of breath over several days. She has a history of COPD and has been using Advair Diskus for approximately two years. She was in her usual state of health until about three weeks ago when she developed symptoms consistent with an upper respiratory infection, including cough and nasal congestion. She was prescribed Zithromax and completed the course approximately 10 days ago. Three days prior to this admission, she experienced worsening shortness of breath, chills, and cough, but was unable to produce any phlegm. In the emergency room, a chest CT revealed bilateral pneumonia with infiltrates in both lungs and some tree-in-bud opacities, along with mild centrilobular emphysema. On admission, her white blood cell count was elevated to over 60,000 with a left shift. She has been treated with ceftriaxone and Zithromax. Currently, she complains of shortness of breath when moving out of bed and has produced a significant amount of yellow phlegm yesterday. She is now afebrile, and her white blood cell count is trending downward. PCR for common respiratory viruses is negative, and antigen tests for Legionella and pneumococcus are pending. Review of Systems 2 Review of Systems: All systems reviewed & are unremarkable except as noted in HPI and below (HPI and below) [facility] Past Medical History Medical History Screening mammogram, encounter for Hemorrhoids Osteoporosis CKD (chronic kidney disease), stage III COVID-19 Benign essential hypertension Other and unspecified hyperlipidemia Vitamin D deficiency Surgical History Surgical History History of breast biopsy left breast--benign History of tubal ligation History of endometrial ablation History of laparoscopy endometriosis Family History Family History Father Hypertension Mother Family history of diabetes mellitus in first degree relative Cerebrovascular accident Social History Social History Smoking packs per day: 1 Smoking cigarettes per day: 20.0 Years smoked: 20 Smoking pack-years: 20.00 Smoking status: Former smoker Tobacco type: cigarettes Second hand tobacco smoke exposure: No Alcohol intake: never Substance use: never Substance use type: does not use Do You Feel Safe in your Home?: Yes Lack of Transportation: No Lack of Food: Never True Current Housing: I Have Housing Concerned About Future Housing: No Difficulty Paying Gas/Electric Bills: No Difficulty Paying for Meds: No Currently Unemployed: No Education: Associate Degree Difficulty w/ Childcare or Family Care: No Living arrangements: other Additional living arrangements comments: Occupation/Education: retired Gender identity (if verbalized by the patient): Female Sexual Orientation (if Verbalized by the Patient): Straight or Heterosexual Spiritual care concerns: No Meds Home Medications and Allergies Home Medications ?Medication ?Instructions ?Recorded ?Confirmed ?Type fluticasone propionate 50 2 spray intranasal DAILY #16 grams 08/29/21 08/14/24 Rx mcg/actuation nasal spray,suspension aspirin 81 mg tablet,delayed 81 mg PO DAILY 03/07/22 08/14/24 History release (Adult Aspirin Regimen) amlodipine 2.5 mg tablet (Norvasc) 2.5 mg PO DAILY #90 tabs 03/09/24 08/14/24 Rx pantoprazole 20 mg tablet,delayed 20 mg PO QAM #90 tabs 03/09/24 08/14/24 Rx release alendronate 70 mg tablet (Fosamax) 70 mg PO WEEKLY #12 tabs 03/16/24 08/14/24 Rx meloxicam 15 mg tablet 15 mg PO DAILY #90 tabs 04/21/24 08/14/24 Rx bupropion HCl 150 mg 24 hr tablet, 150 mg PO QAM #90 tabs 05/25/24 08/14/24 Rx extended release rosuvastatin 20 mg tablet (Crestor) 20 mg PO DAILY #90 tabs 05/25/24 08/14/24 Rx eszopiclone 2 mg tablet (Lunesta) 2 mg PO QHS #30 tabs 07/29/24 08/14/24 Rx fluticasone 500 mcg-salmeterol 50 1 inh inhalation Q12H #180 ea 07/31/24 08/14/24 Rx mcg/dose blistr powdr for inhalation (Advair Diskus) gabapentin 300 mg capsule See Rx Instructions .Route 07/31/24 08/14/24 Rx .COMPLEX #90 caps Allergies Allergy/AdvReac Type Severity Reaction Status Date / Time clavulanic acid Allergy Severe Diarrhea Verified 08/14/24 09:03 cefdinir Allergy Unknown Diarrhea Verified 08/14/24 09:03 clarithromycin Allergy Unknown SEE COMMENT Verified 08/14/24 09:56 methylprednisolone (From AdvReac Intermediate Nausea and Verified 08/14/24 09:03 Medrol) Vomiting Vital Signs Vital Signs - 24 hr 08/16/24 12:00 08/16/24 12:00 08/16/24 13:25 Temperature 36.3 C L Pulse Rate 88 100 Respiratory Rate 18 Blood Pressure 138/59 L Pulse Oximetry 97 96 Oxygen Delivery Nasal Cannula Oxygen Flow Rate 3 Fraction of Inspired Oxygen 32 08/16/24 13:25 08/16/24 13:39 08/16/24 16:00 Temperature 36.6 C Pulse Rate 96 99 93 Respiratory Rate 20 20 18 Blood Pressure 128/70 Pulse Oximetry 96 Oxygen Delivery Oxygen Flow Rate Fraction of Inspired Oxygen 08/16/24 16:00 08/16/24 19:43 08/16/24 19:43 Temperature Pulse Rate 96 90 Respiratory Rate 20 Blood Pressure Pulse Oximetry 98 Oxygen Delivery Nasal Cannula Oxygen Flow Rate 2 Fraction of Inspired Oxygen 32 08/16/24 19:58 08/16/24 20:00 08/16/24 20:00 Temperature Pulse Rate 90 97 Respiratory Rate 20 Blood Pressure Pulse Oximetry 95 Oxygen Delivery Nasal Cannula Oxygen Flow Rate 2 Fraction of Inspired Oxygen 08/16/24 21:17 08/17/24 00:00 08/17/24 00:35 Temperature 36.2 C L 36.3 C L Pulse Rate 101 H 79 80 Respiratory Rate 16 18 Blood Pressure 147/78 H 139/64 Pulse Oximetry 95 97 Oxygen Delivery Oxygen Flow Rate Fraction of Inspired Oxygen 08/17/24 04:00 08/17/24 05:55 08/17/24 08:00 Temperature 36.2 C L 36.6 C Pulse Rate 89 87 92 Respiratory Rate 16 16 Blood Pressure 151/66 H 138/62 Pulse Oximetry 95 93 Oxygen Delivery Oxygen Flow Rate Fraction of Inspired Oxygen 08/17/24 08:50 08/17/24 08:50 08/17/24 09:01 Temperature Pulse Rate 95 98 Respiratory Rate 20 20 Blood Pressure Pulse Oximetry 94 Oxygen Delivery Oxygen Flow Rate 2 Fraction of Inspired Oxygen Exam 2 Narrative: GENERAL APPEARANCE: Well developed, well nourished, alert and cooperative, and appears to be in no acute distress SKIN: Inspection of the skin reveals no rashes, ulcerations or petechiae. HEENT: Sclerae anicteric and conjunctivae pink and moist. Extraocular movements were intact and pupils were equal, round, and reactive to light. The oral mucosa, hard and soft palate, tongue and posterior pharynx were normal. NECK: Supple. There was no thyroid enlargement, and no tenderness, or masses were felt. CHEST: Normal AP diameter and normal contour without any kyphoscoliosis. LUNGS: Auscultation of the lungs revealed distant breath sounds with localized wheezing right lung posteriorly CARDIAC: There was a regular rate and rhythm without any murmurs, gallops, rubs. ABDOMEN: Soft and nontender with normal bowel sounds. There was no organomegaly. LYMPH NODES: No lymphadenopathy was appreciated in the neck. EXTREMITIES: No cyanosis, clubbing or edema. NEUROLOGIC: Alert and oriented x 3. Normal affect. Results Laboratory Findings 08/17/24 05:33 08/17/24 05:33 ABG, PT/INR, D-dimer: PT/INR, D-dimer PT 14.6 Seconds (11.1-14.7) 08/14/24 08:51 INR 1.1 08/14/24 08:51 D-Dimer 1.97 ug/mL (<0.48) H 08/14/24 08:51 Abnormal lab findings: Abnormal Labs 08/14/24 08/14/24 08/14/24 08:51 08:52 10:08 WBC 60.9 H* RBC Hgb Hct MCHC 31.6 L RDW 15.0 H Plt Count 436 H MPV Immature Gran % (Auto) 6.0 H Neut % (Auto) 87.7 H Lymph % (Auto) 2.9 L Baso % (Auto) 0.0 L [place] # (Auto) 2.1 H Abs Immat Gran (auto) 3.66 H Absolute Neuts (auto) 53.4 H Neutrophils % (Manual) Band Neutrophils % Lymphocytes % (Manual) Monocytes % (Manual) Abs Neuts (Manual) Abs Lymphs (Manual) D-Dimer 1.97 H Sodium 133 L Potassium Chloride Carbon Dioxide 20 L Anion Gap 14 H Creatinine Glucose 165 H Lactic Acid 3.0 H Calcium AST ALT Alkaline Phosphatase 131 H C-Reactive Protein 37.4 H NT-Pro-B Natriuret Pep 1220 H Total Protein Albumin Ur Specific [place] Urine Protein Urine RBC 08/14/24 08/14/24 08/14/24 12:09 13:30 15:06 WBC 45.7 H RBC Hgb Hct MCHC 31.4 L RDW 15.2 H Plt Count 376 H MPV Immature Gran % (Auto) Neut % (Auto) Lymph % (Auto) Baso % (Auto) [place] # (Auto) Abs Immat Gran (auto) Absolute Neuts (auto) Neutrophils % (Manual) 92 H Band Neutrophils % Lymphocytes % (Manual) 2.0 L Monocytes % (Manual) 1 L Abs Neuts (Manual) 44.32 H Abs Lymphs (Manual) 0.91 L D-Dimer Sodium Potassium Chloride Carbon Dioxide Anion Gap Creatinine Glucose Lactic Acid 3.2 H 4.4 H* Calcium AST ALT Alkaline Phosphatase C-Reactive Protein NT-Pro-B Natriuret Pep Total Protein Albumin Ur Specific [place] > 1.045 H Urine Protein 1+ H Urine RBC 6-10 H 08/15/24 08/16/24 08/17/24 05:34 05:22 05:33 WBC 34.0 H 27.5 H 20.9 H RBC 4.08 L 3.92 L 3.79 L Hgb 10.7 L 10.3 L 10.1 L Hct 34.6 L 33.2 L 32.4 L MCHC 30.9 L 31.0 L 31.2 L RDW 15.2 H 15.5 H 15.6 H Plt Count MPV 10.6 H Immature Gran % (Auto) 1.4 H 1.3 H Neut % (Auto) 91.4 H 85.3 H Lymph % (Auto) 3.5 L 6.8 L Baso % (Auto) [place] # (Auto) 0.9 H 1.3 H Abs Immat Gran (auto) 0.38 H 0.27 H Absolute Neuts (auto) 25.2 H 17.8 H Neutrophils % (Manual) 88 H Band Neutrophils % 10 H Lymphocytes % (Manual) 2 L Monocytes % (Manual) Abs Neuts (Manual) 33.32 H Abs Lymphs (Manual) 0.68 L D-Dimer Sodium Potassium 3.2 L Chloride 108 H 111 H Carbon Dioxide 21 L Anion Gap Creatinine 0.66 L Glucose 158 H 142 H Lactic Acid Calcium 7.6 L 7.6 L 7.7 L AST 48 H ALT 59 H 55 H Alkaline Phosphatase C-Reactive Protein NT-Pro-B Natriuret Pep Total Protein 6.0 L 6.0 L Albumin 3.1 L 3.2 L Ur Specific [place] Urine Protein Urine RBC
[2024-08-17] MEDS: levoFLOXacin 750 MG/D5W 150 ML 750 MG/150 ML BAG 100 MG IVPB (12:00)
[2024-08-17] MEDS: ASPIRIN 81 MG ENTERIC TABLET PO (19:56)
[2024-08-17] MEDS: traZODone HCL 50 MG TABLET 100 MG PO (19:57)
[2024-08-17] MEDS: ROSUVASTATIN 20 MG TABLET PO (19:57)
[2024-08-17] MEDS: GABAPENTIN 300 MG CAPSULE BY MOUTH (19:57)
[2024-08-17] MEDS: FLUTICASONE/SALMETEROL 230-21 MCG INHALER 1 PUFF 2 PUFF INHALATION (20:03)
[2024-08-18] VITALS (15 sets, daily range): BP systolic 136–156; BP diastolic 58–73; PULSE 70–103; RESP 16–18; TEMP 36.1–36.5; O2SAT 93–96
--- NOTE | 2024-08-18 02:15 | PCRCNOTE ---
08/18/24 0200 Tx not given because during 08/17/241999 Pt asked that I don't wake her up if she's asleep.
[2024-08-18] MEDS: guaiFENesin/DEXTROMETHORPHAN 10 ML UDC PO ×5 (05:28→20:10)
[2024-08-18 05:49] LABS: Basophils Percent Auto 0.2 % (0.2-1.2); Eosinophils Percent Auto 0.1 % (0-4.4); Hematocrit 31.4 % (37.0-47.0); Hemoglobin 9.9 g/dL (12.0-15.0); Immature Granulocyte Absolute 0.54 K/mm3 (0.00-0.031); Immature Granulocyte Percent A 2.9 % (0-0.5); Lymphocytes Absolute Auto 1.93 K/mm3 (0.9-3.2); Lymphocytes Percent Auto 10.3 % (18.3-44.2); Mean Corpuscular HGB Conc 31.5 g/dl (32-36); Mean Corpuscular Hemoglobin 26.8 pg (26-34); Mean Corpuscular Volume 85.1 fl (80-100); Mean Platelet Volume 10.1 fl (7.4-10.4); Monocytes Absolute Auto 1.2 K/mm3 (0.1-0.6); Monocytes Percent Auto 6.2 % (2.6-8.5); Neutrophils Percent Auto 80.3 % (45.5-73.1); Platelet Count Result 326 k/mm3 (150-375); Red Blood Count 3.69 M/mm3 (4.2-5.4); Red Cell Distribution Width 15.4 % (11.5-14.5); White Blood Count 18.7 K/mm3 (4.5-10.0)
[2024-08-18 06:11] LABS: Alanine Aminotransferase 44 U/L (6-35); Alkaline Phosphatase 91 U/L (38-126); Anion Gap 3 mmol/L (4-12); Aspartate Amino Transferase 25 U/L (14-36); Bilirubin,Total 0.3 mg/dL (0.2-1.3); Blood Urea Nitrogen 10 mg/dL (7-17); Calcium 7.9 mg/dL (8.4-10.2); Carbon Dioxide 31 mmol/L (22-30); Chloride 105 mmol/L (98-107); Estimated CRCL calculation 58 ml/min; Estimated Glomerular Filt Rate > 60; Glucose 88 mg/dL (65-110); Potassium 3.5 mmol/L (3.4-5.0); Sodium 139 mmol/L (137-145)
--- NOTE | 2024-08-18 07:23 | P.PNIM_ITS ---
Progress Note: A&P Assessment and Plan (1) Sepsis: Code(s): A41.9 - Sepsis, unspecified organism Status: Acute Assessment and Plan: * chest x-ray showing multifocal pneumonia, emphysema * CTA of the chest showing multifocal pneumonia and emphysema * initially meeting sepsis criteria with heart rate of 133, respiratory rate 24, acute respiratory failure requiring oxygen, white blood cell count 60.9, elevated lactic acid, pneumonia on CTA of chest and on chest x-ray * continue Rocephin and azithromycin * blood cultures are negative to date * [place] [id number] [place] [id number] * fluids stopped lactic trending down * continue present care iv abx oral steroids and duonebs * trending wbc - 27.5-->20.9-->18.7 (2) Acute hypoxic respiratory failure: Code(s): J96.01 - Acute respiratory failure with hypoxia Status: Acute Assessment and Plan: secondary to pneumonia * chest x-ray showing multifocal lung disease consistent with pneumonia, emphysema * chest CTA was negative for PE showed multifocal pneumonia, mild emphysema * respiratory panel was negative for influenza a and B, RSV, COVID * rpt cxr laurie am * will consult pulm -pt will need an outpt f/u with them (3) Pneumonia: Code(s): J18.9 - Pneumonia, unspecified organism Status: Acute Assessment and Plan: * chest x-ray showing multifocal lung disease consistent with pneumonia, emphysema * chest CTA was negative for PE showed multifocal pneumonia, mild emphysema * respiratory panel negative for influenza a and B, RSV, COVID * patient given 40 mg Lasix IV push while in the ED * rpt cxr laurie am rpt lasix iv if cxr shows pulmonary edema * pt had cxr on 08/14 * azithromycin stopped * started levaquin and ceftriaxone-continue (4) Elevated WBC count: Qualifiers: Leukocytosis type: unspecified Qualified Code(s): D72.829 - Elevated white blood cell count, unspecified Code(s): D72.829 - Elevated white blood cell count, unspecified Status: Acute Assessment and Plan: Hemoconcentration due to dehydration versus blood disorder * pt wcc trending down (5) Benign essential hypertension: Code(s): I10 - Essential (primary) hypertension Status: Acute Assessment and Plan: * blood pressure ranging 131/66 to 142/66 * continue amlodipine (6) Chronic obstructive pulmonary disease, unspecified: Code(s): J44.9 - Chronic obstructive pulmonary disease, unspecified Status: Acute Assessment and Plan: * continue DuoNeb Time Spent With Patient Time with patient: Greater than 35 minutes (40 minutes) Subjective Date/time seen: 08/18/24 07:23 Interval history: Lucy is a 69-year-old female with a significant past medical history of hypertension, osteoporosis, CKD stage III, hyperlipidemia, vitamin-D deficiency, former smoker who presented to the hospital with reports of shortness a breath/dyspnea. Workup in the hospital included chest x-ray which showed multifocal lung disease consistent with pneumonia, emphysema. Chest CTA shown multifocal pneumonia, mild emphysema, gallbladder distention secondary to fasting, no PE. Abdomen pelvis CT was negative for acute appendicitis, diverticulitis or intestinal obstruction. Initial white blood count was 60.9, platelet count 436, INR was 1.1, D-dimer 1.97, sodium 133, chloride 99, bicarb 20, anion gap 14, blood sugars ranging 158-165, lactic acid 3.0> 4.4> 1.0, alkaline phosphate 131, C reactive protein 37.4, proBNP 1220. UA was obtained which showed a urine specific gravity of greater than 1.045, 1+ urine protein, 6-10 urine RBC, otherwise negative. Respiratory panel was negative for influenza a and B, RSV, COVID. Pt admitted with hypoxia, sepsis and pneumonia. pt feels severe sob at rest still on 2-3 liters of oxygen presently unable to wean off usually in good health - never on on oxygen before. Had h/o emphysema but never seen pulm. Used to smoke for over 50 years but quite 2018. 08/18 - patient today reports she is feeling so much better than she has. Reports she was able to ambulate to the bathroom without severe dsypnea. patient is still on 2 L of oxygen per nasal cannula, continues to stat 92-93%. Pulmonology did see her and change her antibiotics, she states since she has felt much better. Her white blood cell count is down to 18.7. denies fever or chills. Review of Systems Review of Systems: All systems reviewed & are unremarkable except as noted in HPI and below Exam Const: General: cooperative, comfortable, well developed, alert, awake and acute distress Orientation/consciousness: patient oriented x3 Limitations: no limitations HENMT: Head: normal to inspection and normocephalic Eyes: General: appearance normal, both eyes and all related structures Neck: Neck: full ROM and no lymphadenopathy Lymphatic: no lymphadenopathy noted Chest: Chest palpation & inspection: normal inspection of the chest Resp: Effort & Inspection: normal respiratory effort Auscultation: rhonchi upper bilaterally Cardio: Jugular venous distension: no JVD Rate: regular rate Rhythm: regular rhythm Heart sounds: S1 normal heart sound present and S2 normal heart sound present Peripheral pulses: Peripheral pulses 2+ throughout GI: Inspection: normal to inspection GI Palp: Yes Soft to palpation Auscultation: normal bowel sounds Skin: General skin exam: normal color and no rashes or lesions noted Rashes: no rashes Trauma: no lacerations or abrasions Wounds: no wounds Neuro: General: patient oriented x3, gait normal, tone normal and moves all extremities Extrem: General: normal to inspection, full ROM and capillary refill normal Psych: Appearance: grossly normal Mental Status: mental status grossly normal Speech and movement: Normal speech and movement present Affect: normal affect Attitude: cooperative Thought process: Normal thought process present Thought content: Yes Normal thought content present Objective Data Vital Signs Vital Signs: Vital Signs - 24 hr 08/17/24 08:00 08/17/24 08:00 08/17/24 08:50 Temperature 97.8 F Pulse Rate 92 83 Respiratory Rate 16 Blood Pressure 138/62 Pulse Oximetry 93 94 Oxygen Delivery Oxygen Flow Rate 2 08/17/24 08:50 08/17/24 09:01 08/17/24 09:20 Temperature Pulse Rate 95 98 Respiratory Rate 20 20 Blood Pressure Pulse Oximetry 94 Oxygen Delivery Nasal Cannula Oxygen Flow Rate 2 08/17/24 12:00 08/17/24 12:00 08/17/24 14:06 Temperature 97.1 F L Pulse Rate 103 H 107 H 100 Respiratory Rate 16 24 H Blood Pressure 143/70 H Pulse Oximetry 94 94 Oxygen Delivery Oxygen Flow Rate 2 08/17/24 14:06 08/17/24 14:19 08/17/24 16:00 Temperature 97.8 F Pulse Rate 100 106 H 98 Respiratory Rate 24 H 20 18 Blood Pressure 135/64 Pulse Oximetry 95 Oxygen Delivery Oxygen Flow Rate 08/17/24 16:00 08/17/24 20:00 08/17/24 20:00 Temperature Pulse Rate 98 90 Respiratory Rate Blood Pressure Pulse Oximetry 95 Oxygen Delivery Nasal Cannula Oxygen Flow Rate 2 08/17/24 20:03 08/17/24 20:03 08/17/24 20:11 Temperature Pulse Rate 87 91 Respiratory Rate 18 18 Blood Pressure Pulse Oximetry 95 Oxygen Delivery Nasal Cannula Oxygen Flow Rate 2 08/17/24 22:45 08/18/24 00:00 08/18/24 04:00 Temperature 97.2 F L Pulse Rate 93 82 71 Respiratory Rate 18 Blood Pressure 147/79 H Pulse Oximetry 96 Oxygen Delivery Oxygen Flow Rate Intake/Output Intake/Output: Intake & Output 08/15/24 08/17/24 08/17/24 08/18/24 23:59 00:59 23:59 23:59 Intake Total 2943.3 2070 4020 Output Total 053 755 7083 Balance 2143.3 1866 2009 Meds/Results Medications: Active Medications Generic Name Dose Route Start Last Admin Trade Name Freq PRN Reason Stop Dose Admin Acetaminophen 650 mg 08/14/24 14:14 Acetaminophen 325 Mg Tablet PO Q4H PRN Mild Pain (1-3) or Fever Albuterol/Ipratropium 3 ml 08/14/24 14:00 08/18/24 02:15 Ipratropium 0.5 Mg/Albuterol Sulfate 2.5 Mg Ampul.Neb 3 Ml INHALATION Not Given Q6HRT [facility] Amlodipine Besylate 2.5 mg 08/15/24 09:00 08/17/24 09:22 Amlodipine Besylate 2.5 Mg Tablet PO 2.5 mg DAILY DELFIN Administration Aspirin 81 mg 08/15/24 21:00 08/17/24 19:56 Aspirin 81 Mg Enteric Tablet PO 81 mg Q48H DELFIN Administration Bupropion HCl 150 mg 08/15/24 09:00 08/17/24 09:23 Bupropion Hcl Xl (24 Hr) 150 Mg Tabcr PO 150 mg QAM DELFIN Administration Docusate Sodium 100 mg 08/14/24 17:00 08/17/24 17:30 Docusate Sodium 100 Mg Capsule PO Not Given BID DELFIN Enoxaparin Sodium 40 mg 08/17/24 09:00 08/17/24 09:23 Enoxaparin 40 Mg/0.4 Ml Syringe SUB-Q 40 mg DAILY DELFIN Administration Fluticasone Propionate 1 spray 08/16/24 21:00 08/17/24 19:58 Fluticasone Propionate 0.05% Na Spr 16 Gm Btl (*Bkc) NASAL 1 spray Q12HR DELFIN Administration Gabapentin 300 mg 08/14/24 21:00 08/17/24 19:57 Gabapentin 300 Mg Capsule BY MOUTH 300 mg HS DELFIN Administration Guaifenesin/Dextromethorphan 10 ml 08/14/24 14:25 08/18/24 05:28 Guaifenesin/Dextromethorphan 10 Ml Udc PO 10 ml Q4HR DELFIN Administration Ceftriaxone Sodium 2 gm in 100 mls @ 200 mls/hr 08/18/24 13:00 Rocephin 2 Gm/Ns 100 Ml IVPB Q24H DELFIN Levofloxacin/Dextrose 750 mg in 150 mls @ 100 mls/hr 08/17/24 12:00 08/17/24 12:00 Levaquin 750 Mg/D5w 150 Ml IVPB 100 mls/hr Q24H DELFIN Administration Meloxicam 15 mg 08/15/24 09:00 08/17/24 09:22 Meloxicam 7.5 Mg Tablet PO 15 mg QAM DELIFN Administration Pantoprazole Sodium 20 mg 08/15/24 09:00 08/17/24 09:22 Pantoprazole Sod Sesquihydrate 20 Mg Tab PO 20 mg QAM DELFIN Administration Prednisone 40 mg 08/15/24 08:00 08/17/24 09:22 Prednisone 20 Mg Tablet PO 40 mg DAILY@0800 DELFIN Administration Rosuvastatin Calcium 20 mg 08/15/24 21:00 08/17/24 19:57 Rosuvastatin 20 Mg Tablet PO 20 mg HS DELFIN Administration Fluticasone/Salmeterol 2 puff 08/14/24 20:00 08/17/24 20:03 Fluticasone/Salmeterol 230-21 Mcg Inhaler 1 Puff INHALATION 2 puff Q12HRT DELFIN Administration Trazodone HCl 100 mg 08/15/24 20:26 08/17/24 19:57 Trazodone Hcl 50 Mg Tablet PO 100 mg HS PRN Administration Insomnia Radiology Results: ITS Impressions Chest CTA 08/14/24 11:06 IMPRESSION: 1. No pulmonary embolus. 2. Multifocal pneumonia. 3. Mild emphysema. 4. Gallbladder distention, which may be secondary to fasting. Correlate with physical exam to exclude acute cholecystitis. Abdomen/Pelvis CT 08/14/24 18:17 IMPRESSION: 1. No evidence of appendicitis, diverticulitis or intestinal obstruction. The the Chest X-Ray 08/17/24 06:23 Impression: Stable haziness left lung apex, possibly chronic scarring versus pneumonia. Underlying COPD or other chronic interstitial disease. Labs Labs: Laboratory Results - last 24 hr 08/17/24 08/18/24 05:33 05:29 WBC 18.7 H RBC 3.69 L Hgb 9.9 L Hct 31.4 L MCV 85.1 MCH 26.8 MCHC 31.5 L RDW 15.4 H Plt Count 326 MPV 10.1 Immature Gran % (Auto) 2.9 H Neut % (Auto) 80.3 H Lymph % (Auto) 10.3 L [place] % (Auto) 6.2 Eos % (Auto) 0.1 Baso % (Auto) 0.2 Lymph # (Auto) 1.93 [place] # (Auto) 1.2 H Eos # (Auto) 0.0 Baso # (Auto) 0.0 Abs Immat Gran (auto) 0.54 H Absolute Neuts (auto) 15.0 H Absolute Nucleated RBC 0.000 Nucleated RBC % 0.0 Sodium 139 Potassium 3.5 Chloride 105 Carbon Dioxide 31 H Anion Gap 3 L BUN 10 Creatinine 0.69 L Estim Creat Clear Calc 58 Estimated GFR > 60 Glucose 88 Calcium 7.9 L Total Bilirubin 0.3 AST 25 ALT 44 H Alkaline Phosphatase 91 Total Protein 6.0 L Albumin 3.0 L Procalcitonin 0.7 Quality VTE Prophylaxis VTE prophylaxis: mechanical ordered Hospitalist [facility] Advance Care Plan I have confirmed that the patient's Advanced Care Plan is present, code status is documented, or surrogate decision maker is listed in patient medical record.: Yes Medication Reconciliation I have utilized all available resources to obtain, update and review the patients current medications (includes all prescriptions, OTC, herbals, cannabi s, and nutritional supplements).: Yes
[2024-08-18] MEDS: FLUTICASONE/SALMETEROL 230-21 MCG INHALER 1 PUFF 2 PUFF INHALATION (07:58)
[2024-08-18] MEDS: IPRATROPIUM 0.5 MG/ALBUTEROL SULFATE 2.5 MG AMPUL.NEB 3 ML INHALATION ×2 (07:58→14:56)
[2024-08-18] MEDS: ENOXAPARIN 40 MG/0.4 ML SYRINGE SUB-Q (08:57)
[2024-08-18] MEDS: amLODIPine BESYLATE 2.5 MG TABLET PO (08:57)
[2024-08-18] MEDS: predniSONE 20 MG TABLET 40 MG PO (08:58)
[2024-08-18] MEDS: buPROPion HCL XL (24 HR) 150 MG TABCR PO (08:58)
[2024-08-18] MEDS: PANTOPRAZOLE SOD SESQUIHYDRATE 20 MG TAB PO (08:58)
[2024-08-18] MEDS: MELOXICAM 7.5 MG TABLET 15 MG PO (08:58)
[2024-08-18] MEDS: DOCUSATE SODIUM 100 MG CAPSULE PO (08:58)
--- NOTE | 2024-08-18 10:46 | PM.PNPUL ---
Progress Note: A&P Assessment and Plan (1) Chronic obstructive pulmonary disease, unspecified: Code(s): J44.9 - Chronic obstructive pulmonary disease, unspecified Status: Acute (2) Acute hypoxic respiratory failure: Code(s): J96.01 - Acute respiratory failure with hypoxia Status: Acute (3) Multifocal pneumonia: Code(s): J18.9 - Pneumonia, unspecified organism Status: Acute Assessment and Plan: This 69-year-old female with a history of emphysema, currently managed with maintenance bronchodilators, presented with fever, leukocytosis, and shortness of breath due to multifocal pneumonia. This pneumonia likely developed following a viral pneumonia. The patient exhibited severe leukocytosis with a left shift and is currently being treated with ceftriaxone and levofloxacin. Respiratory status appears to be improving on current regimen. She is also receiving oral prednisone for wheezing. White cell count trending down. Less wheezing on physical exam today. Plan: Continue with current regiment out of bed to chair short-acting bronchodilators as prescribed. Continue with DVT prophylaxis, m S onitor CBC. (4) Tobacco abuse: Code(s): Z72.0 - Tobacco use Status: Acute Subjective Date/time seen: 08/18/24 10:46 Interval history: Patient has no new respiratory symptoms. She stated her breathing is getting better. Less shortness of breath and less wheezing than before. Afebrile. Review of Systems Review of Systems: Severe SOB at rest and wheezy lungs All systems reviewed & are unremarkable except as noted in HPI and below Exam Narrative: GENERAL APPEARANCE: Well developed, well nourished, alert and cooperative, and appears to be in no acute distress SKIN: Inspection of the skin reveals no rashes, ulcerations or petechiae. HEENT: Sclerae anicteric and conjunctivae pink and moist. Extraocular movements were intact and pupils were equal, round, and reactive to light. The oral mucosa, hard and soft palate, tongue and posterior pharynx were normal. NECK: Supple. There was no thyroid enlargement, and no tenderness, or masses were felt. CHEST: Normal AP diameter and normal contour without any kyphoscoliosis. LUNGS: Auscultation of the lungs revealed distant breath sounds with localized wheezing right lung posteriorly, less than before CARDIAC: There was a regular rate and rhythm without any murmurs, gallops, rubs. ABDOMEN: Soft and nontender with normal bowel sounds. There was no organomegaly. LYMPH NODES: No lymphadenopathy was appreciated in the neck. EXTREMITIES: No cyanosis, clubbing or edema. NEUROLOGIC: Alert and oriented x 3. Normal affect. Objective Data Vital Signs Vital Signs: Vital Signs - 24 hr 08/17/24 12:00 08/17/24 12:00 08/17/24 14:06 Temperature 36.2 C L Pulse Rate 103 H 107 H 100 Respiratory Rate 16 24 H Blood Pressure 143/70 H Pulse Oximetry 94 94 Oxygen Delivery Oxygen Flow Rate 2 08/17/24 14:06 08/17/24 14:19 08/17/24 16:00 Temperature 36.6 C Pulse Rate 100 106 H 98 Respiratory Rate 24 H 20 18 Blood Pressure 135/64 Pulse Oximetry 95 Oxygen Delivery Oxygen Flow Rate 08/17/24 16:00 08/17/24 20:00 08/17/24 20:00 Temperature Pulse Rate 98 90 Respiratory Rate Blood Pressure Pulse Oximetry 95 Oxygen Delivery Nasal Cannula Oxygen Flow Rate 2 08/17/24 20:03 08/17/24 20:03 08/17/24 20:11 Temperature Pulse Rate 87 91 Respiratory Rate 18 18 Blood Pressure Pulse Oximetry 95 Oxygen Delivery Nasal Cannula Oxygen Flow Rate 2 08/17/24 22:45 08/18/24 00:00 08/18/24 04:00 Temperature 36.2 C L Pulse Rate 93 82 71 Respiratory Rate 18 Blood Pressure 147/79 H Pulse Oximetry 96 Oxygen Delivery Oxygen Flow Rate 08/18/24 06:00 08/18/24 07:58 08/18/24 07:58 Temperature 36.5 C Pulse Rate 103 H 89 Respiratory Rate 16 18 Blood Pressure 156/73 H Pulse Oximetry 93 93 Oxygen Delivery Nasal Cannula Oxygen Flow Rate 2 08/18/24 08:00 08/18/24 08:05 08/18/24 08:06 Temperature 36.4 C Pulse Rate 87 84 87 Respiratory Rate 18 18 Blood Pressure 145/58 H Pulse Oximetry 93 Oxygen Delivery Oxygen Flow Rate 08/18/24 09:05 Temperature Pulse Rate Respiratory Rate Blood Pressure Pulse Oximetry 93 Oxygen Delivery Nasal Cannula Oxygen Flow Rate 2 Intake/Output Intake/Output: Intake & Output 08/15/24 08/17/24 08/17/24 08/18/24 23:59 00:59 23:59 23:59 Intake Total 2943.3 2070 4020 836 Output Total 350 792 2489 750 Balance 2143.3 1866 2009 86 Meds/Results Medications: Active Medications Generic Name Dose Route Start Last Admin Trade Name Freq PRN Reason Stop Dose Admin Acetaminophen 650 mg 08/14/24 14:14 Acetaminophen 325 Mg Tablet PO Q4H PRN Mild Pain (1-3) or Fever Albuterol/Ipratropium 3 ml 08/14/24 14:00 08/18/24 07:58 Ipratropium 0.5 Mg/Albuterol Sulfate 2.5 Mg Ampul.Neb 3 Ml INHALATION 3 ml Q6HRT DELFIN Administration Amlodipine Besylate 2.5 mg 08/15/24 09:00 08/18/24 08:57 Amlodipine Besylate 2.5 Mg Tablet PO 2.5 mg DAILY DELFIN Administration Aspirin 81 mg 08/15/24 21:00 08/17/24 19:56 Aspirin 81 Mg Enteric Tablet PO 81 mg Q48H DELFIN Administration Bupropion HCl 150 mg 08/15/24 09:00 08/18/24 08:58 Bupropion Hcl Xl (24 Hr) 150 Mg Tabcr PO 150 mg QAM DELFIN Administration Docusate Sodium 100 mg 08/14/24 17:00 08/18/24 08:58 Docusate Sodium 100 Mg Capsule PO 100 mg BID DELFIN Administration Enoxaparin Sodium 40 mg 08/17/24 09:00 08/18/24 08:57 Enoxaparin 40 Mg/0.4 Ml Syringe SUB-Q 40 mg DAILY DELFIN Administration Fluticasone Propionate 1 spray 08/16/24 21:00 08/18/24 08:59 Fluticasone Propionate 0.05% Na Spr 16 Gm Btl (*Bkc) NASAL Not Given Q12HR DELFIN Gabapentin 300 mg 08/14/24 21:00 08/17/24 19:57 Gabapentin 300 Mg Capsule BY MOUTH 300 mg HS DELFIN Administration Guaifenesin/Dextromethorphan 10 ml 08/14/24 14:25 08/18/24 08:57 Guaifenesin/Dextromethorphan 10 Ml Udc PO 10 ml Q4HR DELFIN Administration Ceftriaxone Sodium 2 gm in 100 mls @ 200 mls/hr 08/18/24 13:00 Rocephin 2 Gm/Ns 100 Ml IVPB Q24H DELFIN Levofloxacin/Dextrose 750 mg in 150 mls @ 100 mls/hr 08/17/24 12:00 08/17/24 12:00 Levaquin 750 Mg/D5w 150 Ml IVPB 100 mls/hr Q24H DELFIN Administration Meloxicam 15 mg 08/15/24 09:00 08/18/24 08:58 Meloxicam 7.5 Mg Tablet PO 15 mg QAM DELFIN Administration Pantoprazole Sodium 20 mg 08/15/24 09:00 08/18/24 08:58 Pantoprazole Sod Sesquihydrate 20 Mg Tab PO 20 mg QAM DELFIN Administration Prednisone 40 mg 08/15/24 08:00 08/18/24 08:58 Prednisone 20 Mg Tablet PO 40 mg DAILY@0800 DELFIN Administration Rosuvastatin Calcium 20 mg 08/15/24 21:00 08/17/24 19:57 Rosuvastatin 20 Mg Tablet PO 20 mg HS DELFIN Administration Fluticasone/Salmeterol 2 puff 08/14/24 20:00 08/18/24 07:58 Fluticasone/Salmeterol 230-21 Mcg Inhaler 1 Puff INHALATION 2 puff Q12HRT DELFIN Administration Trazodone HCl 100 mg 08/15/24 20:26 08/17/24 19:57 Trazodone Hcl 50 Mg Tablet PO 100 mg HS PRN Administration Insomnia Radiology Results: ITS Impressions Chest CTA 08/14/24 11:06 IMPRESSION: 1. No pulmonary embolus. 2. Multifocal pneumonia. 3. Mild emphysema. 4. Gallbladder distention, which may be secondary to fasting. Correlate with physical exam to exclude acute cholecystitis. Abdomen/Pelvis CT 08/14/24 18:17 IMPRESSION: 1. No evidence of appendicitis, diverticulitis or intestinal obstruction. The the Chest X-Ray 08/17/24 06:23 Impression: Stable haziness left lung apex, possibly chronic scarring versus pneumonia. Underlying COPD or other chronic interstitial disease. Labs Labs: Laboratory Results - last 24 hr 08/18/24 05:29 WBC 18.7 H RBC 3.69 L Hgb 9.9 L Hct 31.4 L MCV 85.1 MCH 26.8 MCHC 31.5 L RDW 15.4 H Plt Count 326 MPV 10.1 Immature Gran % (Auto) 2.9 H Neut % (Auto) 80.3 H Lymph % (Auto) 10.3 L [place] % (Auto) 6.2 Eos % (Auto) 0.1 Baso % (Auto) 0.2 Lymph # (Auto) 1.93 [place] # (Auto) 1.2 H Eos # (Auto) 0.0 Baso # (Auto) 0.0 Abs Immat Gran (auto) 0.54 H Absolute Neuts (auto) 15.0 H Absolute Nucleated RBC 0.000 Nucleated RBC % 0.0 Sodium 139 Potassium 3.5 Chloride 105 Carbon Dioxide 31 H Anion Gap 3 L BUN 10 Creatinine 0.69 L Estim Creat Clear Calc 58 Estimated GFR > 60 Glucose 88 Calcium 7.9 L Total Bilirubin 0.3 AST 25 ALT 44 H Alkaline Phosphatase 91 Total Protein 6.0 L Albumin 3.0 L
[2024-08-18] MEDS: levoFLOXacin 750 MG/D5W 150 ML 750 MG/150 ML BAG 100 MG IVPB (11:35)
--- NOTE | 2024-08-18 12:17 | WPDONCCN ---
Assessment and Plan Assessment and plan (1) Elevated WBC count: Code(s): D72.829 - Elevated white blood cell count, unspecified Status: Acute Assessment and Plan: This is a 69-year-old pleasant female with history of hypertension, osteoporosis, chronic kidney stage 3 disease and hyperlipidemia admitted to the hospital with shortness of breath. She got sick couple of weeks ago with upper respiratory infection and was treated by primary care physician with [facility]. After completion of the back she more short of breath with tiredness and fatigue. She was admitted to the hospital and diagnosed with multifocal pneumonia. WBC count was elevated at 60.9 and now has come down to 18.7. C-reactive protein was also elevated. Her hemoglobin was normal on admission but now down to 9.9. She denies any bleeding. She has a history of iron deficiency anemia but was not taking any iron supplement. Her leukocytosis is secondary to pneumonia and infection which is already improving. C-reactive protein was elevated. There is no evidence of lymphadenopathy on my examination. There is no need for flow cytometric analysis or bone marrow biopsy at this time since WBC count is already improving. Regarding anemia this could be secondary to nutritional deficiency along with infection and sepsis. We will order the workup that will include iron studies, soluble transferrin receptor, vitamin B12 level and methylmalonic acid level. She will follow-up with us in the office. I provided her my office information. HPI Data of Consult Date/Time: 08/18/24 12:17 Requesting Physician: Hamida Harper APRN Primary Care Provider: Marcial Lozoya APRN Consult Narrative Narrative: Zandra Santos is a 69 year old female with history of chronic kidney stage 3 disease, hypertension, hyperlipidemia and previous history of COVID infection came into the hospital with shortness of breath. She was treated by primary care physician with [facility] but without much improvement. She was admitted to the hospital with pneumonia and sepsis. WBC count was elevated at 60.9. D-dimer was elevated at 1.9 and C-reactive protein was also elevated at 37.4. CT scan showed no evidence of pulmonary embolism but there was multifocal pneumonia and mild emphysema. She quit smoking long time ago. She was started on broad-spectrum antibiotics. She is now feeling better. She has some mild tiredness and fatigue but denies any bleeding and bruising. She has a history of anemia with iron deficiency but not taking any iron supplement at home. She denies any history of malignancy. Labs showed improvement in the WBC count now down to 18.7. She remains anemic with hemoglobin of 9.9. Denies any melena hematochezia. No bleeding complaints. Review of Systems Review of Systems: Review of system as per HPI otherwise negative [facility] Past Medical History Medical History Screening mammogram, encounter for Hemorrhoids Osteoporosis CKD (chronic kidney disease), stage III COVID-19 Benign essential hypertension Other and unspecified hyperlipidemia Vitamin D deficiency Surgical History Surgical History History of breast biopsy left breast--benign History of tubal ligation History of endometrial ablation History of laparoscopy endometriosis Family History Family History Father Hypertension Mother Family history of diabetes mellitus in first degree relative Cerebrovascular accident Social History Social History Smoking packs per day: 1 Smoking cigarettes per day: 20.0 Years smoked: 20 Smoking pack-years: 20.00 Smoking status: Former smoker Tobacco type: cigarettes Second hand tobacco smoke exposure: No Alcohol intake: never Substance use: never Substance use type: does not use Do You Feel Safe in your Home?: Yes Lack of Transportation: No Lack of Food: Never True Current Housing: I Have Housing Concerned About Future Housing: No Difficulty Paying Gas/Electric Bills: No Difficulty Paying for Meds: No Currently Unemployed: No Education: Associate Degree Difficulty w/ Childcare or Family Care: No Living arrangements: other Additional living arrangements comments: Occupation/Education: retired Gender identity (if verbalized by the patient): Female Sexual Orientation (if Verbalized by the Patient): Straight or Heterosexual Spiritual care concerns: No Meds Home Medications and Allergies Home Medications ?Medication ?Instructions ?Recorded ?Confirmed ?Type fluticasone propionate 50 2 spray intranasal DAILY #16 grams 08/29/21 08/14/24 Rx mcg/actuation nasal spray,suspension aspirin 81 mg tablet,delayed 81 mg PO DAILY 09/28/22 03/07/25 History release (Adult Aspirin Regimen) amlodipine 2.5 mg tablet (Norvasc) 2.5 mg PO DAILY #90 tabs 03/09/24 08/14/24 Rx pantoprazole 20 mg tablet,delayed 20 mg PO QAM #90 tabs 03/09/24 08/14/24 Rx release alendronate 70 mg tablet (Fosamax) 70 mg PO WEEKLY #12 tabs 03/16/24 08/14/24 Rx meloxicam 15 mg tablet 15 mg PO DAILY #90 tabs 04/21/24 08/14/24 Rx bupropion HCl 150 mg 24 hr tablet, 150 mg PO QAM #90 tabs 05/25/24 08/14/24 Rx extended release rosuvastatin 20 mg tablet (Crestor) 20 mg PO DAILY #90 tabs 05/25/24 08/14/24 Rx eszopiclone 2 mg tablet (Lunesta) 2 mg PO QHS #30 tabs 07/29/24 08/14/24 Rx fluticasone 500 mcg-salmeterol 50 1 inh inhalation Q12H #180 ea 07/31/24 08/14/24 Rx mcg/dose blistr powdr for inhalation (Advair Diskus) gabapentin 300 mg capsule See Rx Instructions .Route 07/31/24 08/14/24 Rx .COMPLEX #90 caps Allergies Allergy/AdvReac Type Severity Reaction Status Date / Time clavulanic acid Allergy Severe Diarrhea Verified 08/14/24 09:03 cefdinir Allergy Unknown Diarrhea Verified 08/14/24 09:03 clarithromycin Allergy Unknown SEE COMMENT Verified 08/14/24 09:56 methylprednisolone (From AdvReac Intermediate Nausea and Verified 08/14/24 09:03 Medrol) Vomiting Vital Signs Vital Signs - 24 hr 08/17/24 14:06 08/17/24 14:06 08/17/24 14:19 Temperature Pulse Rate 100 100 106 H Respiratory Rate 24 H 24 H 20 Blood Pressure Pulse Oximetry 94 Oxygen Delivery Oxygen Flow Rate 2 08/17/24 16:00 08/17/24 16:00 08/17/24 20:00 Temperature 36.6 C Pulse Rate 98 98 Respiratory Rate 18 Blood Pressure 135/64 Pulse Oximetry 95 95 Oxygen Delivery Nasal Cannula Oxygen Flow Rate 2 08/17/24 20:00 08/17/24 20:03 08/17/24 20:03 Temperature Pulse Rate 90 87 Respiratory Rate 18 Blood Pressure Pulse Oximetry 95 Oxygen Delivery Nasal Cannula Oxygen Flow Rate 2 08/17/24 20:11 08/17/24 22:45 08/18/24 00:00 Temperature 36.2 C L Pulse Rate 91 93 82 Respiratory Rate 18 18 Blood Pressure 147/79 H Pulse Oximetry 96 Oxygen Delivery Oxygen Flow Rate 08/18/24 04:00 08/18/24 06:00 08/18/24 07:58 Temperature 36.5 C Pulse Rate 71 103 H Respiratory Rate 16 Blood Pressure 156/73 H Pulse Oximetry 93 93 Oxygen Delivery Nasal Cannula Oxygen Flow Rate 2 08/18/24 07:58 08/18/24 08:00 08/18/24 08:05 Temperature 36.4 C Pulse Rate 89 87 84 Respiratory Rate 18 18 Blood Pressure 145/58 H Pulse Oximetry 93 Oxygen Delivery Oxygen Flow Rate 08/18/24 08:06 08/18/24 09:05 08/18/24 12:04 Temperature Pulse Rate 87 82 Respiratory Rate 18 Blood Pressure Pulse Oximetry 93 Oxygen Delivery Nasal Cannula Oxygen Flow Rate 2 Exam Narrative: Lungs are clear to auscultation bilaterally Cardiovascular regular rate rhythm no murmurs Abdomen soft nontender nondistended Extremities no edema Results Labs 08/18/24 05:29 08/18/24 05:29 Labs: Short CBC 08/18/24 Range/Units 05:29 WBC 18.7 H (4.5-10.0) K/mm3 Hgb 9.9 L (12.0-15.0) g/dL Hct 31.4 L (37.0-47.0) % Plt Count 326 (150-375) k/mm3 [facility] 08/18/24 05:29 Sodium 139 Potassium 3.5 Chloride 105 Carbon Dioxide 31 H BUN 10 Creatinine 0.69 L Glucose 88 Calcium 7.9 L Liver Function 08/18/24 Range/Units 05:29 Total Bilirubin 0.3 (0.2-1.3) mg/dL AST 25 (14-36) U/L ALT 44 H (6-35) U/L Alkaline Phosphatase 91 (38-126) U/L Albumin 3.0 L (3.5-5.1) g/dL
[2024-08-18 12:57] LABS: Iron 34 ug/dL (37-170)
[2024-08-18] MEDS: cefTRIAXone 2 GM/NS 100 ML 2 GM/100 ML BAG IVPB (13:00)
[2024-08-18 13:09] LABS: Percent Iron Saturation 15 % (20-50)
[2024-08-18] MEDS: ROSUVASTATIN 20 MG TABLET PO (20:10)
[2024-08-18] MEDS: traZODone HCL 50 MG TABLET 100 MG PO (20:10)
[2024-08-18] MEDS: FLUTICASONE PROPIONATE 0.05% NA SPR 16 GM BTL (*BKC) 1 SPRAY NASAL (20:10)
[2024-08-18] MEDS: GABAPENTIN 300 MG CAPSULE BY MOUTH (20:10)
[2024-08-19] VITALS (17 sets, daily range): BP systolic 135–150; BP diastolic 60–86; PULSE 65–108; RESP 16–20; TEMP 36.2–36.8; O2SAT 90–95
[2024-08-19] MEDS: guaiFENesin/DEXTROMETHORPHAN 10 ML UDC PO ×2 (05:00→09:49)
[2024-08-19 06:02] LABS: Basophils Absolute Auto 0.1 K/mm3 (0.0-0.1); Basophils Percent Auto 0.3 % (0.2-1.2); Eosinophils Percent Auto 0.2 % (0-4.4); Hematocrit 31.9 % (37.0-47.0); Hemoglobin 10.2 g/dL (12.0-15.0); Immature Granulocyte Absolute 0.66 K/mm3 (0.00-0.031); Immature Granulocyte Percent A 4.1 % (0-0.5); Lymphocytes Absolute Auto 2.14 K/mm3 (0.9-3.2); Lymphocytes Percent Auto 13.4 % (18.3-44.2); Mean Corpuscular Hemoglobin 27.2 pg (26-34); Mean Corpuscular Volume 85.1 fl (80-100); Mean Platelet Volume 10.2 fl (7.4-10.4); Monocytes Absolute Auto 0.8 K/mm3 (0.1-0.6); Monocytes Percent Auto 4.7 % (2.6-8.5); Neutrophils Absolute Auto 12.3 K/mm3 (1.3-6.7); Neutrophils Percent Auto 77.3 % (45.5-73.1); Platelet Count Result 379 k/mm3 (150-375); Red Blood Count 3.75 M/mm3 (4.2-5.4); Red Cell Distribution Width 15.3 % (11.5-14.5)
[2024-08-19 06:11] LABS: Alanine Aminotransferase 77 U/L (6-35); Albumin Level 3.1 g/dL (3.5-5.1); Alkaline Phosphatase 92 U/L (38-126); Anion Gap 7 mmol/L (4-12); Aspartate Amino Transferase 48 U/L (14-36); Bilirubin,Total 0.3 mg/dL (0.2-1.3); Blood Urea Nitrogen 12 mg/dL (7-17); Carbon Dioxide 30 mmol/L (22-30); Chloride 102 mmol/L (98-107); Estimated CRCL calculation 51 ml/min; Estimated Glomerular Filt Rate > 60; Glucose 102 mg/dL (65-110); Sodium 139 mmol/L (137-145)
[2024-08-19] MEDS: IPRATROPIUM 0.5 MG/ALBUTEROL SULFATE 2.5 MG AMPUL.NEB 3 ML INHALATION ×3 (08:29→20:16)
[2024-08-19] MEDS: FLUTICASONE/SALMETEROL 230-21 MCG INHALER 1 PUFF 2 PUFF INHALATION ×2 (08:29→20:16)
--- NOTE | 2024-08-19 09:04 | PM.PNPUL ---
Progress Note: A&P Assessment and Plan (1) Chronic obstructive pulmonary disease, unspecified: Code(s): J44.9 - Chronic obstructive pulmonary disease, unspecified Status: Acute (2) Acute hypoxic respiratory failure: Code(s): J96.01 - Acute respiratory failure with hypoxia Status: Acute (3) Multifocal pneumonia: Code(s): J18.9 - Pneumonia, unspecified organism Status: Acute Assessment and Plan: This 69-year-old female with a history of emphysema, currently managed with maintenance bronchodilators, presented with fever, leukocytosis, and shortness of breath due to multifocal pneumonia. This pneumonia likely developed following a viral pneumonia. The patient exhibited severe leukocytosis with a left shift and is currently being treated with ceftriaxone and levofloxacin. Respiratory status appears to be improving on current regimen. She is also receiving oral prednisone for wheezing. White cell count trending down. No wheezing on physical exam today. Plan: Have decreased oral steroids. Continue with current regimen. Anticipate discharge home over the next couple of days. (4) Tobacco abuse: Code(s): Z72.0 - Tobacco use Status: Acute Subjective Date/time seen: 08/19/24 09:04 Interval history: Patient doing better. Less shortness of breath and no wheezing. She still on supplemental oxygen Review of Systems Review of Systems: Review of system as per HPI otherwise negative Exam Narrative: GENERAL APPEARANCE: Well developed, well nourished, alert and cooperative, and appears to be in no acute distress SKIN: Inspection of the skin reveals no rashes, ulcerations or petechiae. HEENT: Sclerae anicteric and conjunctivae pink and moist. Extraocular movements were intact and pupils were equal, round, and reactive to light. The oral mucosa, hard and soft palate, tongue and posterior pharynx were normal. NECK: Supple. There was no thyroid enlargement, and no tenderness, or masses were felt. CHEST: Normal AP diameter and normal contour without any kyphoscoliosis. LUNGS: Clear lungs bilaterally no wheezing CARDIAC: There was a regular rate and rhythm without any murmurs, gallops, rubs. ABDOMEN: Soft and nontender with normal bowel sounds. There was no organomegaly. LYMPH NODES: No lymphadenopathy was appreciated in the neck. EXTREMITIES: No cyanosis, clubbing or edema. NEUROLOGIC: Alert and oriented x 3. Normal affect. Objective Data Vital Signs Vital Signs: Vital Signs - 24 hr 08/18/24 09:05 08/18/24 12:04 08/18/24 14:00 Temperature 36.1 C L Pulse Rate 82 90 Respiratory Rate 18 Blood Pressure 136/63 Pulse Oximetry 93 95 Oxygen Delivery Nasal Cannula Oxygen Flow Rate 2 08/18/24 14:56 08/18/24 15:03 08/18/24 16:04 Temperature Pulse Rate 90 84 92 Respiratory Rate 18 18 Blood Pressure Pulse Oximetry Oxygen Delivery Oxygen Flow Rate 08/18/24 20:00 08/18/24 20:00 08/18/24 20:11 Temperature 36.4 C Pulse Rate 70 90 Respiratory Rate 17 Blood Pressure 141/66 H Pulse Oximetry 94 96 Oxygen Delivery Nasal Cannula Oxygen Flow Rate 2 08/19/24 00:00 08/19/24 04:00 08/19/24 05:04 Temperature 36.7 C Pulse Rate 67 65 108 H Respiratory Rate 17 Blood Pressure 150/86 H Pulse Oximetry 93 Oxygen Delivery Oxygen Flow Rate 08/19/24 08:31 08/19/24 08:31 08/19/24 08:38 Temperature Pulse Rate 86 93 Respiratory Rate 18 18 Blood Pressure Pulse Oximetry 90 Oxygen Delivery Nasal Cannula Oxygen Flow Rate 2 Intake/Output Intake/Output: Intake & Output 08/17/24 08/17/24 08/18/24 08/19/24 00:59 23:59 23:59 23:59 Intake Total 2070 4170 3746 250 Output Total 2009 1600 400 Balance 1866 2160 2146 -150 Meds/Results Medications: Active Medications Generic Name Dose Route Start Last Admin Trade Name Freq PRN Reason Stop Dose Admin Acetaminophen 650 mg 08/14/24 14:14 Acetaminophen 325 Mg Tablet PO Q4H PRN Mild Pain (1-3) or Fever Albuterol/Ipratropium 3 ml 08/14/24 14:00 08/19/24 08:29 Ipratropium 0.5 Mg/Albuterol Sulfate 2.5 Mg Ampul.Neb 3 Ml INHALATION 3 ml Q6HRT DELFIN Administration Amlodipine Besylate 2.5 mg 08/15/24 09:00 08/18/24 08:57 Amlodipine Besylate 2.5 Mg Tablet PO 2.5 mg DAILY DELFIN Administration Aspirin 81 mg 08/15/24 21:00 08/17/24 19:56 Aspirin 81 Mg Enteric Tablet PO 81 mg Q48H DELFIN Administration Bupropion HCl 150 mg 08/15/24 09:00 08/18/24 08:58 Bupropion Hcl Xl (24 Hr) 150 Mg Tabcr PO 150 mg QAM DELFIN Administration Docusate Sodium 100 mg 08/14/24 17:00 08/18/24 20:09 Docusate Sodium 100 Mg Capsule PO Not Given BID DELFIN Enoxaparin Sodium 40 mg 08/17/24 09:00 08/18/24 08:57 Enoxaparin 40 Mg/0.4 Ml Syringe SUB-Q 40 mg DAILY DELFIN Administration Fluticasone Propionate 1 spray 08/16/24 21:00 08/18/24 20:10 Fluticasone Propionate 0.05% Na Spr 16 Gm Btl (*Bkc) NASAL 1 spray Q12HR DELFIN Administration Gabapentin 300 mg 08/14/24 21:00 08/18/24 20:10 Gabapentin 300 Mg Capsule BY MOUTH 300 mg HS DELFIN Administration Guaifenesin/Dextromethorphan 10 ml 08/14/24 14:25 08/19/24 05:00 Guaifenesin/Dextromethorphan 10 Ml Udc PO 10 ml Q4HR DELFIN Administration Ceftriaxone Sodium 2 gm in 100 mls @ 200 mls/hr 08/18/24 13:00 08/18/24 13:00 Rocephin 2 Gm/Ns 100 Ml IVPB 200 mls/hr Q24H DELFIN Administration Levofloxacin/Dextrose 750 mg in 150 mls @ 100 mls/hr 08/17/24 12:00 08/18/24 13:05 Levaquin 750 Mg/D5w 150 Ml IVPB Infused Q24H DELFIN Infusion Meloxicam 15 mg 08/15/24 09:00 08/18/24 08:58 Meloxicam 7.5 Mg Tablet PO 15 mg QAM DELFIN Administration Pantoprazole Sodium 20 mg 08/15/24 09:00 08/18/24 08:58 Pantoprazole Sod Sesquihydrate 20 Mg Tab PO 20 mg QAM DELFIN Administration Prednisone 20 mg 08/20/24 08:00 Prednisone 20 Mg Tablet PO DAILY@0800 DELFIN Rosuvastatin Calcium 20 mg 08/15/24 21:00 08/18/24 20:10 Rosuvastatin 20 Mg Tablet PO 20 mg HS DELFIN Administration Fluticasone/Salmeterol 2 puff 08/14/24 20:00 08/19/24 08:29 Fluticasone/Salmeterol 230-21 Mcg Inhaler 1 Puff INHALATION 2 puff Q12HRT DELFIN Administration Trazodone HCl 100 mg 08/15/24 20:26 08/18/24 20:10 Trazodone Hcl 50 Mg Tablet PO 100 mg HS PRN Administration Insomnia Radiology Results: ITS Impressions Chest CTA 08/14/24 11:06 IMPRESSION: 1. No pulmonary embolus. 2. Multifocal pneumonia. 3. Mild emphysema. 4. Gallbladder distention, which may be secondary to fasting. Correlate with physical exam to exclude acute cholecystitis. Abdomen/Pelvis CT 08/14/24 18:17 IMPRESSION: 1. No evidence of appendicitis, diverticulitis or intestinal obstruction. The the Chest X-Ray 08/17/24 06:23 Impression: Stable haziness left lung apex, possibly chronic scarring versus pneumonia. Underlying COPD or other chronic interstitial disease. Labs Labs: Laboratory Results - last 24 hr 08/18/24 08/19/24 05:27 05:35 WBC 16.0 H RBC 3.75 L Hgb 10.2 L Hct 31.9 L MCV 85.1 MCH 27.2 MCHC 32.0 RDW 15.3 H Plt Count 379 H MPV 10.2 Immature Gran % (Auto) 4.1 H Neut % (Auto) 77.3 H Lymph % (Auto) 13.4 L [place] % (Auto) 4.7 Eos % (Auto) 0.2 Baso % (Auto) 0.3 Lymph # (Auto) 2.14 [place] # (Auto) 0.8 H Eos # (Auto) 0.0 Baso # (Auto) 0.1 Abs Immat Gran (auto) 0.66 H Absolute Neuts (auto) 12.3 H Absolute Nucleated RBC 0.000 Nucleated RBC % 0.0 Sodium 139 Potassium 3.0 L Chloride 102 Carbon Dioxide 30 Anion Gap 7 BUN 12 Creatinine 0.79 Estim Creat Clear Calc 51 Estimated GFR > 60 Glucose 102 Calcium 8.0 L Iron 34 L TIBC 222 L % Saturation 15 L Ferritin 142.00 Total Bilirubin 0.3 AST 48 H ALT 77 H Alkaline Phosphatase 92 Total Protein 6.0 L Albumin 3.1 L Vitamin B12 301.0 Folate 4.0
[2024-08-19] MEDS: ENOXAPARIN 40 MG/0.4 ML SYRINGE SUB-Q (09:49)
[2024-08-19] MEDS: MELOXICAM 7.5 MG TABLET 15 MG PO (09:49)
[2024-08-19] MEDS: buPROPion HCL XL (24 HR) 150 MG TABCR PO (09:49)
[2024-08-19] MEDS: PANTOPRAZOLE SOD SESQUIHYDRATE 20 MG TAB PO (09:49)
[2024-08-19] MEDS: amLODIPine BESYLATE 2.5 MG TABLET PO (09:49)
[2024-08-19] MEDS: POTASSIUM CHLORIDE 20 MEQ ER TABLET 40 MEQ PO (09:49)
[2024-08-19] MEDS: predniSONE 20 MG TABLET PO (09:49)
--- NOTE | 2024-08-19 10:08 | P.PNIM_ITS ---
Progress Note: A&P Assessment and Plan (1) Sepsis: Code(s): A41.9 - Sepsis, unspecified organism Status: Acute Assessment and Plan: * chest x-ray showing multifocal pneumonia, emphysema * CTA of the chest showing multifocal pneumonia and emphysema * initially meeting sepsis criteria with heart rate of 133, respiratory rate 24, acute respiratory failure requiring oxygen, white blood cell count 60.9, elevated lactic acid, pneumonia on CTA of chest and on chest x-ray * Continue Ceftriaxone 2 gram IVPB daily and Levofloxacin 750 mg IVPB daily. * blood cultures no growth to date. * WBC trending down from 60,900 to 16,000 * fluids stopped lactic trended down to 1.0 * continue present care iv abx oral steroids and duonebs * trending wbc - 27.5-->20.9-->18.7-->16.0 (2) Acute hypoxic respiratory failure: Code(s): J96.01 - Acute respiratory failure with hypoxia Status: Acute Assessment and Plan: secondary to pneumonia * chest x-ray showing multifocal lung disease consistent with pneumonia, emphysema * chest CTA was negative for PE showed multifocal pneumonia, mild emphysema * respiratory panel was negative for influenza a and B, RSV, COVID * Pulmonology following -pt will need an outpt f/u with them (3) Pneumonia: Code(s): J18.9 - Pneumonia, unspecified organism Status: Acute Assessment and Plan: * chest x-ray showing multifocal lung disease consistent with pneumonia, emphysema * chest CTA was negative for PE showed multifocal pneumonia, mild emphysema * respiratory panel negative for influenza A and B, RSV, COVID * patient given 40 mg Lasix IV push while in the ED * Continue Levaquin 750 mg PO daily and Ceftriaxone 2 gram IVPB daily. * Added Guaifenesin 600 mg PO q 12. (4) Elevated WBC count: Qualifiers: Leukocytosis type: unspecified Qualified Code(s): D72.829 - Elevated white blood cell count, unspecified Code(s): D72.829 - Elevated white blood cell count, unspecified Status: Acute Assessment and Plan: Hemoconcentration due to dehydration versus blood disorder * pt wbc trending down, currently 16,000. (5) Benign essential hypertension: Code(s): I10 - Essential (primary) hypertension Status: Acute Assessment and Plan: * Blood pressure ranging 135/60-150/86. * Continue amlodipine. (6) Chronic obstructive pulmonary disease, unspecified: Code(s): J44.9 - Chronic obstructive pulmonary disease, unspecified Status: Acute Assessment and Plan: * continue DuoNeb (7) Hypokalemia: Code(s): E87.6 - Hypokalemia Status: Acute Assessment and Plan: * Potassium 3.0. * Potassium Chloride 40 meq PO x 1. * Monitor level. Subjective Date/time seen: 08/19/24 10:08 Interval history: Patient sitting up in bed. Patient reports that her breathing has improved alot. Patient reports occasional shortness of breath when she moves around. Patient denies chest pain, palpitations, headache, dizziness, nausea, or vomiting. Patient does not like the cough syrup and would like a different medication to thin her secretions. Review of Systems Review of Systems: All systems reviewed & are unremarkable except as noted in HPI and below Exam Const: General: comfortable and no acute distress Resp: Effort & Inspection: normal respiratory effort Other: Lungs slightly diminished with expiratory wheezes on the left side. Cardio: Rate: regular rate Rhythm: regular rhythm Other: Telemetry- SR 90. GI: GI Palp: Yes Soft to palpation Auscultation: normal bowel sounds Skin: General skin exam: no rashes or lesions noted Neuro: Speech: normal speech Extrem: General: no pedal edema Psych: Mental Status: mental status grossly normal Affect: normal affect Objective Data Vital Signs Vital Signs: Vital Signs - 24 hr 08/18/24 12:04 08/18/24 14:00 08/18/24 14:56 Temperature 97.0 F L Pulse Rate 82 90 90 Respiratory Rate 18 18 Blood Pressure 136/63 Pulse Oximetry 95 Oxygen Delivery Oxygen Flow Rate 08/18/24 15:03 08/18/24 16:04 08/18/24 20:00 Temperature Pulse Rate 84 92 Respiratory Rate 18 Blood Pressure Pulse Oximetry 94 Oxygen Delivery Nasal Cannula Oxygen Flow Rate 2 08/18/24 20:00 08/18/24 20:11 08/19/24 00:00 Temperature 97.6 F Pulse Rate 70 90 67 Respiratory Rate 17 Blood Pressure 141/66 H Pulse Oximetry 96 Oxygen Delivery Oxygen Flow Rate 08/19/24 04:00 08/19/24 05:04 08/19/24 08:31 Temperature 98.0 F Pulse Rate 65 108 H Respiratory Rate 17 Blood Pressure 150/86 H Pulse Oximetry 93 90 Oxygen Delivery Nasal Cannula Oxygen Flow Rate 2 08/19/24 08:31 08/19/24 08:38 Temperature Pulse Rate 86 93 Respiratory Rate 18 18 Blood Pressure Pulse Oximetry Oxygen Delivery Oxygen Flow Rate Intake/Output Intake/Output: Intake & Output 08/17/24 08/17/24 08/18/24 08/19/24 00:59 23:59 23:59 23:59 Intake Total 207 417 3746 490 Output Total 2009 400 Balance 1866 2160 2146 90 Meds/Results Medications: Active Medications Generic Name Dose Route Start Last Admin Trade Name Freq PRN Reason Stop Dose Admin Acetaminophen 650 mg 08/14/24 14:14 Acetaminophen 325 Mg Tablet PO Q4H PRN Mild Pain (1-3) or Fever Albuterol/Ipratropium 3 ml 08/14/24 14:00 08/19/24 08:29 Ipratropium 0.5 Mg/Albuterol Sulfate 2.5 Mg Ampul.Neb 3 Ml INHALATION 3 ml Q6HRT DELFIN Administration Amlodipine Besylate 2.5 mg 08/15/24 09:00 08/19/24 09:49 Amlodipine Besylate 2.5 Mg Tablet PO 2.5 mg DAILY DELFIN Administration Aspirin 81 mg 08/15/24 21:00 08/17/24 19:56 Aspirin 81 Mg Enteric Tablet PO 81 mg Q48H DELFIN Administration Bupropion HCl 150 mg 08/15/24 09:00 08/19/24 09:49 Bupropion Hcl Xl (24 Hr) 150 Mg Tabcr PO 150 mg QAM DELFIN Administration Docusate Sodium 100 mg 08/14/24 17:00 08/19/24 09:49 Docusate Sodium 100 Mg Capsule PO Not Given BID DELFIN Enoxaparin Sodium 40 mg 08/17/24 09:00 08/19/24 09:49 Enoxaparin 40 Mg/0.4 Ml Syringe SUB-Q 40 mg DAILY DELFIN Administration Fluticasone Propionate 1 spray 08/16/24 21:00 08/19/24 09:50 Fluticasone Propionate 0.05% Na Spr 16 Gm Btl (*Bkc) NASAL Not Given Q12HR [facility] Gabapentin 300 mg 08/14/24 21:00 08/18/24 20:10 Gabapentin 300 Mg Capsule BY MOUTH 300 mg HS DELFIN Administration Guaifenesin/Dextromethorphan 10 ml 08/14/24 14:25 08/19/24 09:49 Guaifenesin/Dextromethorphan 10 Ml Udc PO 10 ml Q4HR DELFIN Administration Ceftriaxone Sodium 2 gm in 100 mls @ 200 mls/hr 08/18/24 13:00 08/18/24 13:00 Rocephin 2 Gm/Ns 100 Ml IVPB 08/20/24 23:59 200 mls/hr Q24H DELFIN Administration Levofloxacin 750 mg 08/19/24 11:00 Levofloxacin 750 Mg Tablet PO DAILY DELFIN Meloxicam 15 mg 08/15/24 09:00 08/19/24 09:49 Meloxicam 7.5 Mg Tablet PO 15 mg QAM DELFIN Administration Pantoprazole Sodium 20 mg 08/15/24 09:00 08/19/24 09:49 Pantoprazole Sod Sesquihydrate 20 Mg Tab PO 20 mg QAM DELFIN Administration Prednisone 20 mg 08/19/24 09:10 08/19/24 09:49 Prednisone 20 Mg Tablet PO 20 mg DAILY@0800 DELFIN Administration Rosuvastatin Calcium 20 mg 08/15/24 21:00 08/18/24 20:10 Rosuvastatin 20 Mg Tablet PO 20 mg HS DELFIN Administration Fluticasone/Salmeterol 2 puff 08/14/24 20:00 08/19/24 08:29 Fluticasone/Salmeterol 230-21 Mcg Inhaler 1 Puff INHALATION 2 puff Q12HRT DELFIN Administration Trazodone HCl 100 mg 08/15/24 20:26 08/18/24 20:10 Trazodone Hcl 50 Mg Tablet PO 100 mg HS PRN Administration Insomnia Radiology Results: ITS Impressions Chest CTA 08/14/24 11:06 IMPRESSION: 1. No pulmonary embolus. 2. Multifocal pneumonia. 3. Mild emphysema. 4. Gallbladder distention, which may be secondary to fasting. Correlate with physical exam to exclude acute cholecystitis. Abdomen/Pelvis CT 08/14/24 18:17 IMPRESSION: 1. No evidence of appendicitis, diverticulitis or intestinal obstruction. The the Chest X-Ray 08/17/24 06:23 Impression: Stable haziness left lung apex, possibly chronic scarring versus pneumonia. Underlying COPD or other chronic interstitial disease. Labs Labs: Laboratory Results - last 24 hr 08/18/24 08/19/24 05:27 05:35 WBC 16.0 H RBC 3.75 L Hgb 10.2 L Hct 31.9 L MCV 85.1 MCH 27.2 MCHC 32.0 RDW 15.3 H Plt Count 379 H MPV 10.2 Immature Gran % (Auto) 4.1 H Neut % (Auto) 77.3 H Lymph % (Auto) 13.4 L [place] % (Auto) 4.7 Eos % (Auto) 0.2 Baso % (Auto) 0.3 Lymph # (Auto) 2.14 [place] # (Auto) 0.8 H Eos # (Auto) 0.0 Baso # (Auto) 0.1 Abs Immat Gran (auto) 0.66 H Absolute Neuts (auto) 12.3 H Absolute Nucleated RBC 0.000 Nucleated RBC % 0.0 Sodium 139 Potassium 3.0 L Chloride 102 Carbon Dioxide 30 Anion Gap 7 BUN 12 Creatinine 0.79 Estim Creat Clear Calc 51 Estimated GFR > 60 Glucose 102 Calcium 8.0 L Iron 34 L TIBC 222 L % Saturation 15 L Ferritin 142.00 Total Bilirubin 0.3 AST 48 H ALT 77 H Alkaline Phosphatase 92 Total Protein 6.0 L Albumin 3.1 L Vitamin B12 301.0 Folate 4.0 Quality VTE Prophylaxis VTE prophylaxis: mechanical ordered
[2024-08-19] MEDS: levoFLOXacin 750 MG TABLET PO (11:41)
[2024-08-19] MEDS: cefTRIAXone 2 GM/NS 100 ML 2 GM/100 ML BAG IVPB (13:29)
--- NOTE | 2024-08-19 17:59 | PC.NURSE ---
On 08/19/24, the student, Arin Acosta, provided care and completed [facility] documentation on this patient. I have reviewed the student's documentation and agree with the findings.
[2024-08-19 19:02] LABS: Pneumococcal Antigen Urine NOT DETECTED
[2024-08-19] MEDS: guaiFENesin 12 HR 600 MG TABCR PO (20:33)
[2024-08-19] MEDS: ROSUVASTATIN 20 MG TABLET PO (20:34)
[2024-08-19] MEDS: ASPIRIN 81 MG ENTERIC TABLET PO (20:34)
[2024-08-19] MEDS: FLUTICASONE PROPIONATE 0.05% NA SPR 16 GM BTL (*BKC) 1 SPRAY NASAL (20:34)
[2024-08-19] MEDS: traZODone HCL 50 MG TABLET 100 MG PO (20:34)
[2024-08-19] MEDS: GABAPENTIN 300 MG CAPSULE BY MOUTH (20:34)
[2024-08-20] VITALS (18 sets, daily range): BP systolic 128–139; BP diastolic 59–67; PULSE 66–97; RESP 17–20; TEMP 36.2–36.8; O2SAT 92–97
[2024-08-20 05:38] LABS: Basophils Absolute Auto 0.1 K/mm3 (0.0-0.1); Basophils Percent Auto 0.4 % (0.2-1.2); Eosinophils Percent Auto 0.3 % (0-4.4); Hematocrit 31.3 % (37.0-47.0); Hemoglobin 9.6 g/dL (12.0-15.0); Immature Granulocyte Absolute 0.68 K/mm3 (0.00-0.031); Lymphocytes Absolute Auto 2.25 K/mm3 (0.9-3.2); Lymphocytes Percent Auto 16.5 % (18.3-44.2); Mean Corpuscular HGB Conc 30.7 g/dl (32-36); Mean Corpuscular Volume 84.8 fl (80-100); Mean Platelet Volume 9.8 fl (7.4-10.4); Monocytes Absolute Auto 0.9 K/mm3 (0.1-0.6); Monocytes Percent Auto 6.2 % (2.6-8.5); Neutrophils Absolute Auto 9.8 K/mm3 (1.3-6.7); Neutrophils Percent Auto 71.6 % (45.5-73.1); Platelet Count Result 406 k/mm3 (150-375); Red Blood Count 3.69 M/mm3 (4.2-5.4); Red Cell Distribution Width 15.1 % (11.5-14.5); White Blood Count 13.7 K/mm3 (4.5-10.0)
[2024-08-20 05:49] LABS: Alanine Aminotransferase 157 U/L (6-35); Albumin Level 2.9 g/dL (3.5-5.1); Alkaline Phosphatase 91 U/L (38-126); Anion Gap 5 mmol/L (4-12); Aspartate Amino Transferase 77 U/L (14-36); Bilirubin,Total 0.2 mg/dL (0.2-1.3); Blood Urea Nitrogen 13 mg/dL (7-17); Calcium 8.2 mg/dL (8.4-10.2); Carbon Dioxide 32 mmol/L (22-30); Chloride 104 mmol/L (98-107); Estimated CRCL calculation 48 ml/min; Estimated Glomerular Filt Rate > 60; Glucose 81 mg/dL (65-110); Potassium 3.7 mmol/L (3.4-5.0); Sodium 141 mmol/L (137-145)
[2024-08-20] MEDS: FLUTICASONE/SALMETEROL 230-21 MCG INHALER 1 PUFF 2 PUFF INHALATION ×2 (08:37→19:40)
[2024-08-20] MEDS: IPRATROPIUM 0.5 MG/ALBUTEROL SULFATE 2.5 MG AMPUL.NEB 3 ML INHALATION ×3 (08:37→19:38)
--- NOTE | 2024-08-20 08:57 | P.PNIM_ITS ---
Progress Note: A&P Assessment and Plan (1) Sepsis: Code(s): A41.9 - Sepsis, unspecified organism Status: Resolved Assessment and Plan: * chest x-ray showing multifocal pneumonia, emphysema * CTA of the chest showing multifocal pneumonia and emphysema * initially meeting sepsis criteria with heart rate of 133, respiratory rate 24, acute respiratory failure requiring oxygen, white blood cell count 60.9, elevated lactic acid, pneumonia on CTA of chest and on chest x-ray * Continue Ceftriaxone 2 gram IVPB daily and Levofloxacin 750 mg IVPB daily. * blood cultures no growth to date. * WBC trending down from 60,900 to 16,000 * fluids stopped lactic trended down to 1.0 * continue present care iv abx oral steroids and duonebs * trending wbc - 27.5-->20.9-->18.7-->16.0 08/20/24: * Patient no longer meeting sepsis criteria. Current wbc's are 13.7. No other signs of acute systems failure. (2) Acute hypoxic respiratory failure: Code(s): J96.01 - Acute respiratory failure with hypoxia Status: Acute Assessment and Plan: secondary to pneumonia * chest x-ray showing multifocal lung disease consistent with pneumonia, emphysema * chest CTA was negative for PE showed multifocal pneumonia, mild emphysema * respiratory panel was negative for influenza a and B, RSV, COVID * Pulmonology following -pt will need an outpt f/u with them 08/20/24: * Patient improving overall. She feels as though she is almost back to baseline. Pulmonology is following. Pulmonology will keep still tomorrow and re-evaluate in the a.m.. * Continue Rocephin Levaquin. * Home oxygen evaluation ordered. (3) Pneumonia: Code(s): J18.9 - Pneumonia, unspecified organism Status: Acute Assessment and Plan: * chest x-ray showing multifocal lung disease consistent with pneumonia, emphysema * chest CTA was negative for PE showed multifocal pneumonia, mild emphysema * respiratory panel negative for influenza A and B, RSV, COVID * patient given 40 mg Lasix IV push while in the ED * Continue Levaquin 750 mg PO daily and Ceftriaxone 2 gram IVPB daily. * Added Guaifenesin 600 mg PO q 12. 08/20/24: * See above (4) Elevated WBC count: Qualifiers: Leukocytosis type: unspecified Qualified Code(s): D72.829 - Elevated white blood cell count, unspecified Code(s): D72.829 - Elevated white blood cell count, unspecified Status: Acute Assessment and Plan: Hemoconcentration due to dehydration versus blood disorder * pt wbc trending down, currently 16,000. 08/20/24: * See above (5) Benign essential hypertension: Code(s): I10 - Essential (primary) hypertension Status: Acute Assessment and Plan: * Blood pressure ranging 135/60-150/86. * Continue amlodipine. 08/20/24: * Stable continue current plan and medications (6) Chronic obstructive pulmonary disease, unspecified: Code(s): J44.9 - Chronic obstructive pulmonary disease, unspecified Status: Acute Assessment and Plan: * continue DuoNeb 08/20/24: * Stable continue current plan and medications (7) Hypokalemia: Code(s): E87.6 - Hypokalemia Status: Resolved Assessment and Plan: * Potassium 3.0. * Potassium Chloride 40 meq PO x 1. * Monitor level. 08/20/24: * Resolved today with potassium level of 3.7. * Recheck with a.m. labs Time Spent With Patient Time with patient: 15 - 25 minutes Subjective Date/time seen: 08/20/24 08:57 Interval history: This very pleasant female patient is examined at the bedside today interval assessment. Patient states that she is feeling much improved and this does reflect in patient's data with regards to labs and vital signs as well. She has already been evaluated by pulmonology this morning who would like to keep her 1 more day, checked chest x-ray in the morning and likely discharge tomorrow. Patient agreeable this plan of care. She has no complaints or new symptoms to report today, and no new concerns. Home oxygen evaluation is ordered at this time. Review of Systems Review of Systems: All systems reviewed & are unremarkable except as noted in HPI and below Exam Narrative: General:SOB at rest on oxygen anxious worried about her health Cardiac: Normal S1 and S2. Respiratory: Lungs clear to auscultation bilaterally. Gastrointestinal: soft, non-distended, non-tender, normoactive bowel sounds. : voiding without difficulty. Extremities: moves all extremities well, no edema Skin: clean, dry, intact. No wounds or lesions. Neuro: Alert and oriented x4, cranial nerves intact, no neuro deficits. Psych: normal mood, normal affect, interactive Objective Data Vital Signs Vital Signs: Vital Signs - 24 hr 08/19/24 09:53 08/19/24 12:05 08/19/24 14:00 Temperature 97.2 F L Pulse Rate 93 77 88 Respiratory Rate 18 16 Blood Pressure 135/60 Pulse Oximetry 90 95 Oxygen Delivery Nasal Cannula Oxygen Flow Rate 2 08/19/24 15:28 08/19/24 15:42 08/19/24 16:05 Temperature Pulse Rate 81 86 85 Respiratory Rate 20 20 Blood Pressure Pulse Oximetry Oxygen Delivery Oxygen Flow Rate 08/19/24 20:00 08/19/24 20:00 08/19/24 20:17 Temperature Pulse Rate 72 78 Respiratory Rate 20 Blood Pressure Pulse Oximetry 92 Oxygen Delivery Nasal Cannula Oxygen Flow Rate 2 08/19/24 20:27 08/19/24 20:40 08/19/24 21:09 Temperature 98.3 F Pulse Rate 80 85 Respiratory Rate 20 18 Blood Pressure 139/60 Pulse Oximetry 95 95 Oxygen Delivery Nasal Cannula Oxygen Flow Rate 2 08/20/24 00:00 08/20/24 04:00 08/20/24 04:41 Temperature 98.2 F Pulse Rate 73 73 96 Respiratory Rate 18 Blood Pressure 139/67 Pulse Oximetry 97 Oxygen Delivery Oxygen Flow Rate 08/20/24 08:41 08/20/24 08:43 08/20/24 08:48 Temperature Pulse Rate 73 75 Respiratory Rate 20 20 Blood Pressure Pulse Oximetry 93 Oxygen Delivery Nasal Cannula Oxygen Flow Rate 2 Intake/Output Intake/Output: Intake & Output 08/17/24 08/18/24 08/19/24 08/20/24 23:59 23:59 23:59 23:59 Intake Total 4170 3846 1840 50 Output Total 2009 1600 900 400 Balance 2160 2086 940 -350 Meds/Results Medications: Active Medications Generic Name Dose Route Start Last Admin Trade Name Freq PRN Reason Stop Dose Admin Acetaminophen 650 mg 08/14/24 14:14 Acetaminophen 325 Mg Tablet PO Q4H PRN Mild Pain (1-3) or Fever Albuterol/Ipratropium 3 ml 08/14/24 14:00 08/20/24 08:37 Ipratropium 0.5 Mg/Albuterol Sulfate 2.5 Mg Ampul.Neb 3 Ml INHALATION 3 ml Q6HRT DELFIN Administration Amlodipine Besylate 2.5 mg 08/15/24 09:00 08/19/24 09:49 Amlodipine Besylate 2.5 Mg Tablet PO 2.5 mg DAILY DELIFN Administration Aspirin 81 mg 08/15/24 21:00 08/19/24 20:34 Aspirin 81 Mg Enteric Tablet PO 81 mg Q48H DELFIN Administration Bupropion HCl 150 mg 08/15/24 09:00 08/19/24 09:49 Bupropion Hcl Xl (24 Hr) 150 Mg Tabcr PO 150 mg QAM DELFIN Administration Enoxaparin Sodium 40 mg 08/17/24 09:00 08/19/24 09:49 Enoxaparin 40 Mg/0.4 Ml Syringe SUB-Q 40 mg DAILY DELFIN Administration Fluticasone Propionate 1 spray 08/16/24 21:00 08/19/24 20:34 Fluticasone Propionate 0.05% Na Spr 16 Gm Btl (*Bkc) NASAL 1 spray Q12HR DELFIN Administration Gabapentin 300 mg 08/14/24 21:00 08/19/24 20:34 Gabapentin 300 Mg Capsule BY MOUTH 300 mg HS DELFIN Administration Guaifenesin 600 mg 08/19/24 10:10 08/19/24 20:33 Guaifenesin 12 Hr 600 Mg Tabcr PO 600 mg Q12HR DELFIN Administration Ceftriaxone Sodium 2 gm in 100 mls @ 200 mls/hr 08/18/24 13:00 08/19/24 13:29 Rocephin 2 Gm/Ns 100 Ml IVPB 08/20/24 23:59 100 mls/hr Q24H DELFIN Administration Levofloxacin 750 mg 08/19/24 11:00 08/19/24 11:41 Levofloxacin 750 Mg Tablet PO 750 mg DAILY DELFIN Administration Meloxicam 15 mg 08/15/24 09:00 08/19/24 09:49 Meloxicam 7.5 Mg Tablet PO 15 mg QAM DELFIN Administration Pantoprazole Sodium 20 mg 08/15/24 09:00 08/19/24 09:49 Pantoprazole Sod Sesquihydrate 20 Mg Tab PO 20 mg QAM DELFIN Administration Prednisone 20 mg 08/19/24 09:10 08/19/24 09:49 Prednisone 20 Mg Tablet PO 20 mg DAILY@0800 DELFIN Administration Rosuvastatin Calcium 20 mg 08/15/24 21:00 08/19/24 20:34 Rosuvastatin 20 Mg Tablet PO 20 mg HS DELFIN Administration Fluticasone/Salmeterol 2 puff 08/14/24 20:00 08/20/24 08:37 Fluticasone/Salmeterol 230-21 Mcg Inhaler 1 Puff INHALATION 2 puff Q12HRT DELFIN Administration Trazodone HCl 100 mg 08/15/24 20:26 08/19/24 20:34 Trazodone Hcl 50 Mg Tablet PO 100 mg HS PRN Administration Insomnia Radiology Results: ITS Impressions Chest CTA 08/14/24 11:06 IMPRESSION: 1. No pulmonary embolus. 2. Multifocal pneumonia. 3. Mild emphysema. 4. Gallbladder distention, which may be secondary to fasting. Correlate with physical exam to exclude acute cholecystitis. Abdomen/Pelvis CT 08/14/24 18:17 IMPRESSION: 1. No evidence of appendicitis, diverticulitis or intestinal obstruction. The the Chest X-Ray 08/17/24 06:23 Impression: Stable haziness left lung apex, possibly chronic scarring versus pneumonia. Underlying COPD or other chronic interstitial disease. Labs Labs: Laboratory Results - last 24 hr 08/15/24 08/20/24 16:54 05:18 WBC 13.7 H RBC 3.69 L Hgb 9.6 L Hct 31.3 L MCV 84.8 MCH 26.0 MCHC 30.7 L RDW 15.1 H Plt Count 406 H MPV 9.8 Immature Gran % (Auto) 5.0 H Neut % (Auto) 71.6 Lymph % (Auto) 16.5 L [place] % (Auto) 6.2 Eos % (Auto) 0.3 Baso % (Auto) 0.4 Lymph # (Auto) 2.25 [place] # (Auto) 0.9 H Eos # (Auto) 0.0 Baso # (Auto) 0.1 Abs Immat Gran (auto) 0.68 H Absolute Neuts (auto) 9.8 H Absolute Nucleated RBC 0.000 Nucleated RBC % 0.0 Sodium 141 Potassium 3.7 Chloride 104 Carbon Dioxide 32 H Anion Gap 5 BUN 13 Creatinine 0.85 Estim Creat Clear Calc 48 Estimated GFR > 60 Glucose 81 Calcium 8.2 L Total Bilirubin 0.2 AST 77 H ALT 157 H Alkaline Phosphatase 91 Total Protein 6.0 L Albumin 2.9 L Urine Pneumococcal Ag Not detected Quality VTE Prophylaxis VTE prophylaxis: pharmacologic ordered
[2024-08-20] MEDS: ENOXAPARIN 40 MG/0.4 ML SYRINGE SUB-Q (09:35)
[2024-08-20] MEDS: buPROPion HCL XL (24 HR) 150 MG TABCR PO (09:36)
[2024-08-20] MEDS: guaiFENesin 12 HR 600 MG TABCR PO ×2 (09:36→20:19)
[2024-08-20] MEDS: PANTOPRAZOLE SOD SESQUIHYDRATE 20 MG TAB PO (09:36)
[2024-08-20] MEDS: predniSONE 20 MG TABLET PO (09:36)
[2024-08-20] MEDS: amLODIPine BESYLATE 2.5 MG TABLET PO (09:36)
[2024-08-20] MEDS: MELOXICAM 7.5 MG TABLET 15 MG PO (09:36)
[2024-08-20] MEDS: levoFLOXacin 750 MG TABLET PO (09:36)
--- NOTE | 2024-08-20 09:48 | PM.PNPUL ---
Progress Note: A&P Assessment and Plan (1) Chronic obstructive pulmonary disease, unspecified: Code(s): J44.9 - Chronic obstructive pulmonary disease, unspecified Status: Acute (2) Acute hypoxic respiratory failure: Code(s): J96.01 - Acute respiratory failure with hypoxia Status: Acute (3) Multifocal pneumonia: Code(s): J18.9 - Pneumonia, unspecified organism Status: Acute Assessment and Plan: This 69-year-old female with a history of emphysema, currently managed with maintenance bronchodilators, presented with fever, leukocytosis, and shortness of breath due to multifocal pneumonia. This pneumonia likely developed following a viral pneumonia. The patient exhibited severe leukocytosis with a left shift and is currently being treated with ceftriaxone and levofloxacin. Respiratory status appears to be improving on current regimen. She is also receiving oral prednisone for wheezing. White cell count trending down. No wheezing on physical exam today. Plan: Have decreased oral steroids. Continue with current regimen. Chest x-ray in a.m. Anticipate discharge home in a.m. (4) Tobacco abuse: Code(s): Z72.0 - Tobacco use Status: Acute Subjective Date/time seen: 08/20/24 09:48 Interval history: Patient stated she is doing better. No new respiratory symptoms. She remains on supplemental oxygen. Ambulating in room Review of Systems Review of Systems: All systems reviewed & are unremarkable except as noted in HPI and below (HPI and below) Exam Narrative: GENERAL APPEARANCE: Well developed, well nourished, alert and cooperative, and appears to be in no acute distress SKIN: Inspection of the skin reveals no rashes, ulcerations or petechiae. HEENT: Sclerae anicteric and conjunctivae pink and moist. Extraocular movements were intact and pupils were equal, round, and reactive to light. The oral mucosa, hard and soft palate, tongue and posterior pharynx were normal. NECK: Supple. There was no thyroid enlargement, and no tenderness, or masses were felt. CHEST: Normal AP diameter and normal contour without any kyphoscoliosis. LUNGS: Clear lungs bilaterally no wheezing CARDIAC: There was a regular rate and rhythm without any murmurs, gallops, rubs. ABDOMEN: Soft and nontender with normal bowel sounds. There was no organomegaly. LYMPH NODES: No lymphadenopathy was appreciated in the neck. EXTREMITIES: No cyanosis, clubbing or edema. NEUROLOGIC: Alert and oriented x 3. Normal affect. Objective Data Vital Signs Vital Signs: Vital Signs - 24 hr 08/19/24 09:53 08/19/24 12:05 08/19/24 14:00 Temperature 36.2 C L Pulse Rate 93 77 88 Respiratory Rate 18 16 Blood Pressure 135/60 Pulse Oximetry 90 95 Oxygen Delivery Nasal Cannula Oxygen Flow Rate 2 08/19/24 15:28 08/19/24 15:42 08/19/24 16:05 Temperature Pulse Rate 81 86 85 Respiratory Rate 20 20 Blood Pressure Pulse Oximetry Oxygen Delivery Oxygen Flow Rate 08/19/24 20:00 08/19/24 20:00 08/19/24 20:17 Temperature Pulse Rate 72 78 Respiratory Rate 20 Blood Pressure Pulse Oximetry 92 Oxygen Delivery Nasal Cannula Oxygen Flow Rate 2 08/19/24 20:27 08/19/24 20:40 08/19/24 21:09 Temperature 36.8 C Pulse Rate 80 85 Respiratory Rate 20 18 Blood Pressure 139/60 Pulse Oximetry 95 95 Oxygen Delivery Nasal Cannula Oxygen Flow Rate 2 08/20/24 00:00 08/20/24 04:00 08/20/24 04:41 Temperature 36.8 C Pulse Rate 73 73 96 Respiratory Rate 18 Blood Pressure 139/67 Pulse Oximetry 97 Oxygen Delivery Oxygen Flow Rate 08/20/24 08:41 08/20/24 08:43 08/20/24 08:48 Temperature Pulse Rate 73 75 Respiratory Rate 20 20 Blood Pressure Pulse Oximetry 93 Oxygen Delivery Nasal Cannula Oxygen Flow Rate 2 Intake/Output Intake/Output: Intake & Output 08/17/24 08/18/24 08/19/24 08/20/24 23:59 23:59 23:59 23:59 Intake Total 4170 3846 1840 50 Output Total 2009 1600 900 400 Balance 2160 2246 940 -350 Meds/Results Medications: Active Medications Generic Name Dose Route Start Last Admin Trade Name Freq PRN Reason Stop Dose Admin Acetaminophen 650 mg 08/14/24 14:14 Acetaminophen 325 Mg Tablet PO Q4H PRN Mild Pain (1-3) or Fever Albuterol/Ipratropium 3 ml 08/14/24 14:00 08/20/24 08:37 Ipratropium 0.5 Mg/Albuterol Sulfate 2.5 Mg Ampul.Neb 3 Ml INHALATION 3 ml Q6HRT DELFIN Administration Amlodipine Besylate 2.5 mg 08/15/24 09:00 08/20/24 09:36 Amlodipine Besylate 2.5 Mg Tablet PO 2.5 mg DAILY DELFIN Administration Aspirin 81 mg 08/15/24 21:00 08/19/24 20:34 Aspirin 81 Mg Enteric Tablet PO 81 mg Q48H DELFIN Administration Bupropion HCl 150 mg 08/15/24 09:00 08/20/24 09:36 Bupropion Hcl Xl (24 Hr) 150 Mg Tabcr PO 150 mg QAM DELFIN Administration Enoxaparin Sodium 40 mg 08/17/24 09:00 08/20/24 09:35 Enoxaparin 40 Mg/0.4 Ml Syringe SUB-Q 40 mg DAILY DELFIN Administration Gabapentin 300 mg 08/14/24 21:00 08/19/24 20:34 Gabapentin 300 Mg Capsule BY MOUTH 300 mg HS DELFIN Administration Guaifenesin 600 mg 08/19/24 10:10 08/20/24 09:36 Guaifenesin 12 Hr 600 Mg Tabcr PO 600 mg Q12HR DELFIN Administration Ceftriaxone Sodium 2 gm in 100 mls @ 200 mls/hr 08/18/24 13:00 08/19/24 13:29 Rocephin 2 Gm/Ns 100 Ml IVPB 08/20/24 23:59 100 mls/hr Q24H DELFIN Administration Levofloxacin 750 mg 08/19/24 11:00 08/20/24 09:36 Levofloxacin 750 Mg Tablet PO 750 mg DAILY DELFIN Administration Meloxicam 15 mg 08/15/24 09:00 08/20/24 09:36 Meloxicam 7.5 Mg Tablet PO 15 mg QAM DELFIN Administration Pantoprazole Sodium 20 mg 08/15/24 09:00 08/20/24 09:36 Pantoprazole Sod Sesquihydrate 20 Mg Tab PO 20 mg QAM DELFIN Administration Prednisone 20 mg 08/19/24 09:10 08/20/24 09:36 Prednisone 20 Mg Tablet PO 20 mg DAILY@0800 DELFIN Administration Rosuvastatin Calcium 20 mg 08/15/24 21:00 08/19/24 20:34 Rosuvastatin 20 Mg Tablet PO 20 mg HS DELFIN Administration Fluticasone/Salmeterol 2 puff 08/14/24 20:00 08/20/24 08:37 Fluticasone/Salmeterol 230-21 Mcg Inhaler 1 Puff INHALATION 2 puff Q12HRT DELFIN Administration Trazodone HCl 100 mg 08/15/24 20:26 08/19/24 20:34 Trazodone Hcl 50 Mg Tablet PO 100 mg HS PRN Administration Insomnia Radiology Results: ITS Impressions Chest CTA 08/14/24 11:06 IMPRESSION: 1. No pulmonary embolus. 2. Multifocal pneumonia. 3. Mild emphysema. 4. Gallbladder distention, which may be secondary to fasting. Correlate with physical exam to exclude acute cholecystitis. Abdomen/Pelvis CT 08/14/24 18:17 IMPRESSION: 1. No evidence of appendicitis, diverticulitis or intestinal obstruction. The the Chest X-Ray 08/17/24 06:23 Impression: Stable haziness left lung apex, possibly chronic scarring versus pneumonia. Underlying COPD or other chronic interstitial disease. Labs Labs: Laboratory Results - last 24 hr 08/15/24 08/20/24 16:54 05:18 WBC 13.7 H RBC 3.69 L Hgb 9.6 L Hct 31.3 L MCV 84.8 MCH 26.0 MCHC 30.7 L RDW 15.1 H Plt Count 406 H MPV 9.8 Immature Gran % (Auto) 5.0 H Neut % (Auto) 71.6 Lymph % (Auto) 16.5 L [place] % (Auto) 6.2 Eos % (Auto) 0.3 Baso % (Auto) 0.4 Lymph # (Auto) 2.25 [place] # (Auto) 0.9 H Eos # (Auto) 0.0 Baso # (Auto) 0.1 Abs Immat Gran (auto) 0.68 H Absolute Neuts (auto) 9.8 H Absolute Nucleated RBC 0.000 Nucleated RBC % 0.0 Sodium 141 Potassium 3.7 Chloride 104 Carbon Dioxide 32 H Anion Gap 5 BUN 13 Creatinine 0.85 Estim Creat Clear Calc 48 Estimated GFR > 60 Glucose 81 Calcium 8.2 L Total Bilirubin 0.2 AST 77 H ALT 157 H Alkaline Phosphatase 91 Total Protein 6.0 L Albumin 2.9 L Urine Pneumococcal Ag Not detected
[2024-08-20] MEDS: cefTRIAXone 2 GM/NS 100 ML 2 GM/100 ML BAG IVPB (12:54)
--- NOTE | 2024-08-20 19:37 | PC.NURSE ---
On 08/20/24, the student, Arin Acosta, provided care and completed [facility] documentation on this patient. I have reviewed the student's documentation and agree with the findings.
[2024-08-20] MEDS: ROSUVASTATIN 20 MG TABLET PO (20:19)
[2024-08-20] MEDS: traZODone HCL 50 MG TABLET 100 MG PO (20:19)
[2024-08-20] MEDS: GABAPENTIN 300 MG CAPSULE BY MOUTH (20:19)
[2024-08-21] VITALS (10 sets, daily range): BP systolic 143; BP diastolic 71; PULSE 72–108; RESP 18–20; TEMP 36.9; O2SAT 87–94
[2024-08-21 05:38] LABS: Basophils Percent Auto 0.2 % (0.2-1.2); Eosinophils Percent Auto 0.3 % (0-4.4); Hematocrit 30.2 % (37.0-47.0); Hemoglobin 9.6 g/dL (12.0-15.0); Immature Granulocyte Absolute 0.49 K/mm3 (0.00-0.031); Immature Granulocyte Percent A 4.5 % (0-0.5); Lymphocytes Absolute Auto 2.32 K/mm3 (0.9-3.2); Lymphocytes Percent Auto 21.2 % (18.3-44.2); Mean Corpuscular HGB Conc 31.8 g/dl (32-36); Mean Corpuscular Hemoglobin 26.8 pg (26-34); Mean Corpuscular Volume 84.4 fl (80-100); Mean Platelet Volume 9.7 fl (7.4-10.4); Monocytes Absolute Auto 0.7 K/mm3 (0.1-0.6); Monocytes Percent Auto 6.8 % (2.6-8.5); Neutrophils Absolute Auto 7.3 K/mm3 (1.3-6.7); Platelet Count Result 403 k/mm3 (150-375); Red Blood Count 3.58 M/mm3 (4.2-5.4); Red Cell Distribution Width 15.3 % (11.5-14.5); White Blood Count 10.9 K/mm3 (4.5-10.0)
[2024-08-21 05:47] LABS: Alanine Aminotransferase 121 U/L (6-35); Albumin Level 2.9 g/dL (3.5-5.1); Alkaline Phosphatase 80 U/L (38-126); Anion Gap 6 mmol/L (4-12); Aspartate Amino Transferase 45 U/L (14-36); Bilirubin,Total 0.3 mg/dL (0.2-1.3); Blood Urea Nitrogen 13 mg/dL (7-17); Calcium 8.2 mg/dL (8.4-10.2); Carbon Dioxide 29 mmol/L (22-30); Chloride 103 mmol/L (98-107); Estimated CRCL calculation 55 ml/min; Estimated Glomerular Filt Rate > 60; Glucose 80 mg/dL (65-110); Potassium 3.7 mmol/L (3.4-5.0); Sodium 138 mmol/L (137-145)
[2024-08-21] MEDS: IPRATROPIUM 0.5 MG/ALBUTEROL SULFATE 2.5 MG AMPUL.NEB 3 ML INHALATION (07:55)
[2024-08-21] MEDS: FLUTICASONE/SALMETEROL 230-21 MCG INHALER 1 PUFF 2 PUFF INHALATION (07:55)
[2024-08-21] MEDS: ENOXAPARIN 40 MG/0.4 ML SYRINGE SUB-Q (08:52)
[2024-08-21] MEDS: guaiFENesin 12 HR 600 MG TABCR PO (08:54)
[2024-08-21] MEDS: predniSONE 20 MG TABLET PO (08:54)
[2024-08-21] MEDS: levoFLOXacin 750 MG TABLET PO (08:54)
[2024-08-21] MEDS: PANTOPRAZOLE SOD SESQUIHYDRATE 20 MG TAB PO (08:54)
[2024-08-21] MEDS: amLODIPine BESYLATE 2.5 MG TABLET PO (08:54)
[2024-08-21] MEDS: buPROPion HCL XL (24 HR) 150 MG TABCR PO (08:54)
[2024-08-21] MEDS: MELOXICAM 7.5 MG TABLET 15 MG PO (08:54)
--- NOTE | 2024-08-21 09:25 | PM.PNPUL ---
Progress Note: A&P Assessment and Plan (1) Chronic obstructive pulmonary disease, unspecified: Code(s): J44.9 - Chronic obstructive pulmonary disease, unspecified Status: Acute (2) Acute hypoxic respiratory failure: Code(s): J96.01 - Acute respiratory failure with hypoxia Status: Acute (3) Multifocal pneumonia: Code(s): J18.9 - Pneumonia, unspecified organism Status: Acute Assessment and Plan: This 69-year-old female with a history of emphysema, currently managed with maintenance bronchodilators, presented with fever, severe leukocytosis, and shortness of breath due to multifocal pneumonia. This pneumonia likely developed following a viral pneumonia. The patient exhibited severe leukocytosis with a left shift and received treatment with ceftriaxone levofloxacin. Currently on just a levofloxacin orally. Respiratory status appears to be improving on current regimen. She is also receiving oral prednisone for wheezing. White cell count trending down. No wheezing on physical exam today. Chest x-ray today showed possible residual small pleural effusion on the left. Please refer to the chest x-ray radiology report Plan: The patient is approved for discharge to home with the following medication regimen: Continue the current dose of levofloxacin for an additional 4 days. Take prednisone 20 mg daily for 5 days. Resume the Advair 500/50 inhaler, using 1 puff twice daily. Use albuterol as needed (p.r.n.) and ensure a prescription for an albuterol inhaler is provided for this purpose. Utilize nebulized albuterol three times daily (t.i.d.) as needed for shortness of breath and wheezing. Before discharge, a home oxygen evaluation is required. The patient has been advised to contact the Pulmonary Clinic to schedule a follow-up appointment within the next 3 weeks. The contact information for the clinic has been provided to the patient for this purpose. Please feel free to contact me if there are any questions. (4) Tobacco abuse: Code(s): Z72.0 - Tobacco use Status: Acute Subjective Date/time seen: 08/21/24 09:25 Interval history: Patient doing better. She has no new respiratory symptoms, no shortness of breath no wheezing. Currently on room air. Anxious to go home today. Review of Systems Review of Systems: All systems reviewed & are unremarkable except as noted in HPI and below (HPI and below) Exam Narrative: GENERAL APPEARANCE: Well developed, well nourished, alert and cooperative, and appears to be in no acute distress SKIN: Inspection of the skin reveals no rashes, ulcerations or petechiae. HEENT: Sclerae anicteric and conjunctivae pink and moist. Extraocular movements were intact and pupils were equal, round, and reactive to light. The oral mucosa, hard and soft palate, tongue and posterior pharynx were normal. NECK: Supple. There was no thyroid enlargement, and no tenderness, or masses were felt. CHEST: Normal AP diameter and normal contour without any kyphoscoliosis. LUNGS: Clear lungs bilaterally no wheezing CARDIAC: There was a regular rate and rhythm without any murmurs, gallops, rubs. ABDOMEN: Soft and nontender with normal bowel sounds. There was no organomegaly. LYMPH NODES: No lymphadenopathy was appreciated in the neck. EXTREMITIES: No cyanosis, clubbing or edema. NEUROLOGIC: Alert and oriented x 3. Normal affect. Objective Data Vital Signs Vital Signs: Vital Signs - 24 hr 08/20/24 09:43 08/20/24 12:05 08/20/24 14:00 Temperature 36.2 C L Pulse Rate 86 80 Respiratory Rate 18 Blood Pressure 128/61 Pulse Oximetry 92 96 Oxygen Delivery Nasal Cannula Oxygen Flow Rate 2 Fraction of Inspired Oxygen 08/20/24 14:27 08/20/24 16:04 08/20/24 17:23 Temperature Pulse Rate 70 82 Respiratory Rate 20 Blood Pressure Pulse Oximetry 95 Oxygen Delivery Nasal Cannula Oxygen Flow Rate 1 Fraction of Inspired Oxygen 08/20/24 18:30 08/20/24 19:38 08/20/24 19:38 Temperature Pulse Rate 86 Respiratory Rate 18 Blood Pressure Pulse Oximetry 93 92 Oxygen Delivery Room Air Room Air Oxygen Flow Rate Fraction of Inspired Oxygen 21 08/20/24 19:48 08/20/24 20:00 08/20/24 20:00 Temperature Pulse Rate 84 97 Respiratory Rate 18 Blood Pressure Pulse Oximetry Oxygen Delivery Room Air Oxygen Flow Rate Fraction of Inspired Oxygen 08/20/24 20:04 08/21/24 00:00 08/21/24 04:00 Temperature 36.6 C Pulse Rate 88 72 73 Respiratory Rate 17 Blood Pressure 133/59 L Pulse Oximetry 94 Oxygen Delivery Oxygen Flow Rate Fraction of Inspired Oxygen 08/21/24 04:37 08/21/24 08:10 08/21/24 08:10 Temperature 36.9 C Pulse Rate 86 89 Respiratory Rate 18 20 Blood Pressure 143/71 H Pulse Oximetry 92 91 Oxygen Delivery Room Air Oxygen Flow Rate Fraction of Inspired Oxygen 08/21/24 08:24 Temperature Pulse Rate 98 Respiratory Rate 20 Blood Pressure Pulse Oximetry Oxygen Delivery Oxygen Flow Rate Fraction of Inspired Oxygen Intake/Output Intake/Output: Intake & Output 08/18/24 08/19/24 08/20/24 08/21/24 23:59 23:59 23:59 23:59 Intake Total 3846 1940 1670 200 Output Total 6322 864 8609 500 Balance 2246 1040 370 -300 Meds/Results Medications: Active Medications Generic Name Dose Route Start Last Admin Trade Name Freq PRN Reason Stop Dose Admin Acetaminophen 650 mg 08/14/24 14:14 Acetaminophen 325 Mg Tablet PO Q4H PRN Mild Pain (1-3) or Fever Albuterol/Ipratropium 3 ml 08/14/24 14:00 08/21/24 07:55 Ipratropium 0.5 Mg/Albuterol Sulfate 2.5 Mg Ampul.Neb 3 Ml INHALATION 3 ml Q6HRT DELFIN Administration Amlodipine Besylate 2.5 mg 08/15/24 09:00 08/21/24 08:54 Amlodipine Besylate 2.5 Mg Tablet PO 2.5 mg DAILY DELFIN Administration Aspirin 81 mg 08/15/24 21:00 08/19/24 20:34 Aspirin 81 Mg Enteric Tablet PO 81 mg Q48H DELFIN Administration Bupropion HCl 150 mg 08/15/24 09:00 08/21/24 08:54 Bupropion Hcl Xl (24 Hr) 150 Mg Tabcr PO 150 mg QAM DELFIN Administration Enoxaparin Sodium 40 mg 08/17/24 09:00 08/21/24 08:52 Enoxaparin 40 Mg/0.4 Ml Syringe SUB-Q 40 mg DAILY DELFIN Administration Gabapentin 300 mg 08/14/24 21:00 08/20/24 20:19 Gabapentin 300 Mg Capsule BY MOUTH 300 mg HS DELFIN Administration Guaifenesin 600 mg 08/19/24 10:10 08/21/24 08:54 Guaifenesin 12 Hr 600 Mg Tabcr PO 600 mg Q12HR DELFIN Administration Levofloxacin 750 mg 08/19/24 11:00 08/21/24 08:54 Levofloxacin 750 Mg Tablet PO 750 mg DAILY DELFIN Administration Meloxicam 15 mg 08/15/24 09:00 08/21/24 08:54 Meloxicam 7.5 Mg Tablet PO 15 mg QAM DELFIN Administration Pantoprazole Sodium 20 mg 08/15/24 09:00 08/21/24 08:54 Pantoprazole Sod Sesquihydrate 20 Mg Tab PO 20 mg QAM DELFIN Administration Prednisone 20 mg 08/19/24 09:10 08/21/24 08:54 Prednisone 20 Mg Tablet PO 20 mg DAILY@0800 DELFIN Administration Rosuvastatin Calcium 20 mg 08/15/24 21:00 08/20/24 20:19 Rosuvastatin 20 Mg Tablet PO 20 mg HS DELFIN Administration Fluticasone/Salmeterol 2 puff 08/14/24 20:00 08/21/24 07:55 Fluticasone/Salmeterol 230-21 Mcg Inhaler 1 Puff INHALATION 2 puff Q12HRT DELFIN Administration Trazodone HCl 100 mg 08/15/24 20:26 08/20/24 20:19 Trazodone Hcl 50 Mg Tablet PO 100 mg HS PRN Administration Insomnia Radiology Results: ITS Impressions Chest CTA 08/14/24 11:06 IMPRESSION: 1. No pulmonary embolus. 2. Multifocal pneumonia. 3. Mild emphysema. 4. Gallbladder distention, which may be secondary to fasting. Correlate with physical exam to exclude acute cholecystitis. Abdomen/Pelvis CT 08/14/24 18:17 IMPRESSION: 1. No evidence of appendicitis, diverticulitis or intestinal obstruction. The the Chest X-Ray 08/21/24 06:39 Impression: Minimal left pleural effusion with possible hazy left basilar airspace disease, nonspecific. Labs Labs: Laboratory Results - last 24 hr 08/15/24 08/21/24 05:32 05:22 WBC 10.9 H RBC 3.58 L Hgb 9.6 L Hct 30.2 L MCV 84.4 MCH 26.8 MCHC 31.8 L RDW 15.3 H Plt Count 403 H MPV 9.7 Immature Gran % (Auto) 4.5 H Neut % (Auto) 67.0 Lymph % (Auto) 21.2 [place] % (Auto) 6.8 Eos % (Auto) 0.3 Baso % (Auto) 0.2 Lymph # (Auto) 2.32 [place] # (Auto) 0.7 H Eos # (Auto) 0.0 Baso # (Auto) 0.0 Abs Immat Gran (auto) 0.49 H Absolute Neuts (auto) 7.3 H Absolute Nucleated RBC 0.000 Nucleated RBC % 0.0 Sodium 138 Potassium 3.7 Chloride 103 Carbon Dioxide 29 Anion Gap 6 BUN 13 Creatinine 0.74 Estim Creat Clear Calc 55 Estimated GFR > 60 Glucose 80 Calcium 8.2 L Total Bilirubin 0.3 AST 45 H ALT 121 H Alkaline Phosphatase 80 Total Protein 6.0 L Albumin 2.9 L Mycoplasma pneumon IgG < or = 0.90
--- NOTE | 2024-08-21 10:50 | P.DS_ITS ---
DS: Summary Time Spent with Patient Time attestation: Total time spent providing and/or coordinating discharge services: DS: Data Data Completed and Pending Labs on day of discharge: Labs from last 24 hours 08/21/24 08/15/24 05:22 05:32 WBC 10.9 H RBC 3.58 L Hgb 9.6 L Hct 30.2 L MCV 84.4 MCH 26.8 MCHC 31.8 L RDW 15.3 H Plt Count 403 H MPV 9.7 Immature Gran % (Auto) 4.5 H Neut % (Auto) 67.0 Lymph % (Auto) 21.2 White % (Auto) 6.8 Eos % (Auto) 0.3 Baso % (Auto) 0.2 Lymph # (Auto) 2.32 White # (Auto) 0.7 H Eos # (Auto) 0.0 Baso # (Auto) 0.0 Abs Immat Gran (auto) 0.49 H Absolute Neuts (auto) 7.3 H Absolute Nucleated RBC 0.000 Nucleated RBC % 0.0 Sodium 138 Potassium 3.7 Chloride 103 Carbon Dioxide 29 Anion Gap 6 BUN 13 Creatinine 0.74 Estim Creat Clear Calc 55 Estimated GFR > 60 Glucose 80 Calcium 8.2 L Total Bilirubin 0.3 AST 45 H ALT 121 H Alkaline Phosphatase 80 Total Protein 6.0 L Albumin 2.9 L Mycoplasma pneumon IgG < or = 0.90 Discharge Plan Discharge Attending physician on discharge: Ivon Montano Consulting providers: Matt Zheng; Jermaine Grayson Discharging Clinician: Flor Cool Patient Disposition: Home, Self-Care Activity: as tolerated Diet: heart healthy Discharge Instructions: Patient to follow discharge care instruction from her Life Science Taxonomist and follow up as scheduled, patient to follow up with her primary care provider as soon as possible. patient is instructed if any symptoms worsen to go to nearest ER. Patient Instructions: Antibiotic Form Patient Language: Hungarian Stand Alone Forms: General Discharge Information Follow-up/Referrals: Matt Zheng MD [Physician] - Marcial Lozoya APRN [Primary Care Provider] - Jermaine Grayson MD [Physician] - Discharge Medications: New ipratropium-albuterol 0.5 mg-3 mg(2.5 mg base)/3 mL Solution For Nebulization 3 ml inhalation Q6HRT Qty: 90 0RF trazodone 50 mg Tablet 100 mg PO HS PRN (Reason: Insomnia) Qty: 30 0RF prednisone 20 mg Tablet 20 mg PO DAILY@0800 Qty: 5 0RF guaifenesin [Mucus Relief ER] 600 mg Tablet Extended Release 12hr 600 mg PO Q12HR Qty: 30 0RF fluticasone propion-salmeterol [Advair Diskus] 500-50 mcg/dose blister with device 1 inh inhalation Q12H Qty: 60 0RF levofloxacin 750 mg tablet 750 mg PO DAILY Qty: 4 0RF Continued fluticasone propionate 50 mcg/actuation spray,suspension 2 spray intranasal DAILY Qty: 16 11RF Rx Instructions: administer into each nostril aspirin [Adult Aspirin Regimen] 81 mg tablet,delayed release (DR/EC) 81 mg PO DAILY Patient Comments: Patient takes every other day amlodipine [Norvasc] 2.5 mg tablet 2.5 mg PO DAILY Qty: 90 2RF pantoprazole 20 mg tablet,delayed release (DR/EC) 20 mg PO QAM Qty: 90 2RF alendronate [Fosamax] 70 mg tablet 70 mg PO WEEKLY Qty: 12 3RF meloxicam 15 mg tablet 15 mg PO DAILY Qty: 90 1RF Rx Instructions: Take with food bupropion HCl 150 mg tablet extended release 24 hr 150 mg PO QAM Qty: 90 1RF rosuvastatin [Crestor] 20 mg tablet 20 mg PO DAILY Qty: 90 2RF eszopiclone [Lunesta] 2 mg tablet 2 mg PO QHS Qty: 30 0RF Rx Instructions: Refill on/after 07/31 fluticasone propion-salmeterol [Advair Diskus] 500-50 mcg/dose blister with device 1 inh INHALATION Q12H Qty: 180 1RF gabapentin 300 mg capsule See Rx Instructions .ROUTE .COMPLEX Qty: 90 1RF Dose Instruction: TAKE 1 CAPSULE BY MOUTH EVERY DAY AT BEDTIME Rx Instructions: TAKE 1 CAPSULE BY MOUTH EVERY DAY AT BEDTIME Date of admission: 08/14/24 15:03 Primary Care Provider: Marcial Lozoya Admitting Provider: Adrian Martin Attending physician on admission: Ivon Monatno Condition: Stable
--- NOTE | 2024-08-21 10:59 | PCNWS ---
Weekly nutritional screen. Patient is tolerating current diet with adequate intake. No weight loss reported. No nutritional needs at this time.
--- NOTE | 2024-08-21 11:34 | HOMEO2EVAL ---
Evaluation was performed at [facility] Home Oxygen Evaluation RC: Home Oxygen (O2) Evaluation Start: 08/20/24 08:57 Freq: ONCE Status: Active Protocol: RPE Activity Type Activity Date Activity User E-sign Co-sign Detail Recorded Client Recorded Date Recorded By Document 08/21/24 11:00 IVAN [email or web address] 08/21/24 11:33 IVAN Document 08/21/24 11:05 [email or web address] [email or web address] 08/21/24 11:33 IVAN Document 08/21/24 11:06 IVAN [email or web address] 08/21/24 11:33 IVAN Document 08/21/24 11:07 IVAN [email or web address] 08/21/24 11:33 IVAN Document 08/21/24 11:15 [email or web address] [email or web address] 08/21/24 11:33 IVAN 08/21/24 08/21/24 08/21/24 11:00 11:05 11:06 Home O2 Evaluation [Oxygen] -Test Phase Resting Exercise Exercise -Oxygen Delivery Room Air Room Air Nasal Cannula -Oxygen Flow Rate (L/min) 1 [Pulse Oximetry] -Pulse Oximetry (90-100 %) 93 87 L 88 L [Pulse Rate] -Pulse Rate (60-100 beats/min) 89 108 H [Exercise] -Ambulation Distance (feet) -Ambulation Distance (meters) [Comments] -Home Oxygen Evaluation Comments [Charges] -Evaluation Charges O2 Evaluation by Pulmonary 08/21/24 08/21/24 11:07 11:15 Home O2 Evaluation [Oxygen] -Test Phase Exercise Resting -Oxygen Delivery Nasal Cannula Room Air -Oxygen Flow Rate (L/min) 2 [Pulse Oximetry] -Pulse Oximetry (90-100 %) 90 94 [Pulse Rate] -Pulse Rate (60-100 beats/min) 90 [Exercise] -Ambulation Distance (feet) 100 -Ambulation Distance (meters) 30.47 [Comments] -Home Oxygen Evaluation Comments Pt requires 2 liters home O2 with activity [Charges] -Evaluation Charges
--- NOTE | 2024-08-21 11:58 | PCRCNOTE ---
Home O2 se up with home [employer] 2 L with activity, POC in room ready for pt to take home.
[2024-08-22 03:23] LABS: Methylmalonic Acid 209 nmol/L (69-390)
[2024-08-26 01:58] LABS: Legionella pneumophila Ag Ur NOT DETECTED
== END 2024-08-21 12:48 | disposition home or self-care (01) | DRG 871 ==
LOC: ANHED 13:05 → ANH3MED 14:47
PROVIDERS: Emergency Medicine; Family Medicine; Internal Medicine Hematology & Oncology; Nurse Practitioner Acute Care; Nurse Practitioner Family; Nurse Practitioner Gerontology; Admitting Provider Internal Medicine; Emergency Provider Registered Nurse; PCP Nurse Practitioner; Visit Provider Family Medicine
DX: A41.9 Sepsis, unspecified organism (principal); J18.9 Pneumonia, unspecified organism; J96.01 Acute respiratory failure with hypoxia; I13.0 Hypertensive heart and chronic kidney disease with heart failure and stage 1 through stage 4 chronic kidney disease, or unspecified chronic kidney disease; J44.0 Chronic obstructive pulmonary disease with (acute) lower respiratory infection; I50.9 Heart failure, unspecified; N18.30 Chronic kidney disease, stage 3 unspecified; E78.5 Hyperlipidemia, unspecified; E86.0 Dehydration; M81.0 Age-related osteoporosis without current pathological fracture; Z86.16 Personal history of COVID-19; Z87.891 Personal history of nicotine dependence
CPT/HCPCS: 36415; 71045; 71275; 74177; 80048; 80053; 81001; 82607; 82728; 82746; 83540; 83550; 83605; 83735; 83880; 83921; 84145; 84238; 84484; 85025; 85380; 85610; 85730; 86140; 86304; 86738; 87040; 87449; 87637; 87641; 87899; 89055; 93005; 94618; 94640; 94667; 96361; 96365; 96368; 96375; 97161; 99285; A9270; G0378; J0456; J0696; J1100; J1650; J1940; J1956; J7030; J7512; Q9967

== ENCOUNTER 2024-09-14 09:22 | Outpatient (CLI) | payer MEDICARE, OTHER, SELFPAY ==
--- OUTSIDE RECORDS SUMMARY | 2024-09-14 10:13 | XMS_ITS | Clinical Summary ---
Author Organization [facility] Address [address] [place] [id number] Care Team Providers Care Orthopedic Shoe Maker Name Role Phone Unavailable Primary Care Provider [...] Vaccine ( - 2023-2 5 season) 2024 RSV Immunization or 60+ Years (1 [...]
[2024-09-14 11:09] LABS: Cholesterol 142 mg/dL (0-200); HDL Direct 55 mg/dL; Triglycerides 121 mg/dL (<150)
[2024-09-14 11:19] LABS: LDL Cholesterol Direct 45 mg/dL
== END 2024-09-14 09:23 | disposition home or self-care (01) ==
LOC: ANHLAB 09:24
PROVIDERS: PCP Nurse Practitioner; Visit Provider Nurse Practitioner
DX: E78.5 Hyperlipidemia, unspecified (principal)
CPT/HCPCS: 36415; 80061

== ENCOUNTER 2024-10-12 09:46 | Outpatient (CLI) | payer MEDICARE, OTHER, SELFPAY ==
--- NOTE | ~2024-10-12 | CT_ITS ---
CT Scan of the Chest without Contrast: Clinical Indication: COPD Technique: Contiguous sections were acquired throughout the chest without intravenous contrast. Dose reduction technique was used on this scan by utilizing automated exposure control and iterative recon struction technique. The dose-length product (DLP) was 125.32 mGy-cm. COMPARISON: 08/14/2024 Findings: There is no evidence of any significant mediastinal, hilar or axillary lymphadenopathy. Coronary lemuel ry calcifications are present. There is no evidence of pleural or pericardial effusion. There is minimal biapical scarring. Previously noted patchy upper lobe airspace disease is otherwise resolved. There are areas of bibasilar consolidation the lower lobes, which could reflect atelectasis versus pneumonia. Images through the upper abdomen reveal no abnormalities. Impression: New areas of bibasilar consolidation which could reflect atelectasis versus pneumonia. Near complete resolution of upper lobe airspace disease since prior exam, with minimal residual biapi darryl scarring. Reviewed, dictated and finalized at [facility]. Impression: New areas of bibasilar consolidation which could reflect atelectasis versus pne umonia. Near complete resolution of upper lobe airspace disease since prior exam, with minimal residual biapical scarring.
--- OUTSIDE RECORDS SUMMARY | 2024-10-12 10:30 | XMS_ITS | Clinical Summary ---
Author Organization [facility] Address [address] [place] [id number] Care Team Providers Care Language Path Name Role Phone Unavailable Primary Care Provider [...] 1 - Tdap) 1976 Mammogram Screening 1997 Pneumococcal Vaccine: 50+ Ye ars (2 of 2 - PPSV23) 04/08/2019 04/08/2018 Zoster Vaccines (2 of 3) 04/28/2019 03/03/2019 Dexa Scan (General) 2022 COVID-19 Vaccine ( - 2023-2 5 season) [...]
--- NOTE | 2024-10-12 15:30 | WPDSIXMINUTE ---
Six Minute Walk Procedure Procedure Performed Pulmonary Stress Test (6 min walk) Six Minute Walk Six Minute Walk: This is a 6 minute walk test. The test was performed and interpreted in accordance with the 2014 ERS/ATS task force guidelines. Findings: The patient's resting room air oxygen saturation measured by pulse oximetry was 97%, the heart rate was 82 bpm, and the modified Frnacisca dyspnea score was 2. Patient ambulated for 366 meters and oxygen saturation remained 92 to 95%. At the end of the study the heart rate was 110 bpm and the modified Francisca dyspnea score was 3. The patient did not qualify for supplemental oxygen at rest or with ambulation. There are no prior studies for comparison.
--- NOTE | 2024-10-12 15:31 | WPDPFTINT ---
PFT Procedure Performed PFT Procedure Performed Spirometry with Pre/Post Bronchodilator Plethysmography (Lung Vol) Diffusing Cap (DLCO) Flow Vol Loop PFT Interpretation This is a pulmonary function test with pre and post-bronchodilator spirometry, plethysmography and diffusing capacity. The test was performed and results interpreted in accordance with the 2019 and 2005 ATS/ERS Task Force guidelines respectively using the Global Lung Function Initiative-2012 reference equations. Patient demonstrated good effort and cooperation. Reproducibility criteria were met. The quality of the pre bronchodilator spirometry maneuver was Grade A and post bronchodilator spirometry maneuver was Grade A. Findings: Spirometry: There is decreased maximal expiratory airflow at all lung volumes with concave expiratory flow tracing. The contour the inspiratory flow tracing is normal. The pre bronchodilator FVC is 1.74 L, 64% predicted. The pre bronchodilator FEV1 is 0.78 L, 37% predicted. The pre bronchodilator FEV1: FVC ratio is 45%. The post bronchodilator FVC is 1.88 L, representing an 8% increase. The post bronchodilator FEV1 is 0.77 L, representing a 2% decrease. The post bronchodilator FEV1: FVC ratio is 41%. Plethysmography: The total lung capacity is 3.84 L, 81% predicted. The functional residual capacity is 2.55 L, 95% predicted. The residual volume is 2.10 L, 104% predicted. Diffusing capacity: The diffusing capacity unadjusted for hemoglobin and carboxyhemoglobin is 7.5, 37% predicted. The diffusing capacity adjusted for alveolar volume is 2.54, 57% predicted. Impression: There is a severe obstructive abnormality. There is no significant improvement after inhaling a single dose of albuterol. The increase in residual volume to total lung volume ratio is consistent with hyperinflation from an obstructive abnormality. The diffusing capacity unadjusted for hemoglobin and carboxyhemoglobin is severely decreased and remains moderately decreased when adjusted for alveolar volume. There are no prior studies for comparison
== END 2024-10-12 09:47 | disposition home or self-care (01) ==
PROVIDERS: PCP Nurse Practitioner; Visit Provider Internal Medicine Pulmonary Disease
DX: J98.11 Atelectasis (principal); J84.89 Other specified interstitial pulmonary diseases
CPT/HCPCS: 71250; 94060; 94618; 94726; 94729

== ENCOUNTER 2025-02-16 09:30 | Outpatient (RCR) | payer MEDICARE, OTHER, SELFPAY ==
[2024-10-20 15:47] VITALS: PULSE 79
== END 2025-02-16 23:59 | disposition home or self-care (01) ==
LOC: ANHCPREHAB 09:30
PROVIDERS: PCP Nurse Practitioner; Visit Provider Internal Medicine Pulmonary Disease
DX: J44.9 Chronic obstructive pulmonary disease, unspecified (principal)
CPT/HCPCS: 94625

== ENCOUNTER 2025-04-22 10:00 | Outpatient (CLI) | payer MEDICARE, OTHER, SELFPAY ==
[2025-04-22 10:31] LABS: Hematocrit 41.0 % (37.0-47.0); Hemoglobin 12.4 g/dL (12.0-15.0); Mean Corpuscular HGB Conc 30.2 g/dl (32-36); Mean Corpuscular Hemoglobin 26.3 pg (26-34); Mean Corpuscular Volume 87.0 fl (80-100); Platelet Count Result 326 k/mm3 (150-375); Red Blood Count 4.71 M/mm3 (4.2-5.4); White Blood Count 9.8 K/mm3 (4.5-10.0)
--- OUTSIDE RECORDS SUMMARY | 2025-04-22 10:47 | XMS_ITS | Clinical Summary ---
Author Organization [facility] Address [address] [place] [id number] Care Team Providers Care Forestry Farm Laborer Name Role Phone Unavailable Primary Care Provider [...] 50+ Ye ars (2 of 2 - PCV20 or PCV21) 04/08/2019 04/08/2018 Zoster Vaccines (2 of 3) 04/28/2019 03/03/2019 Dexa Scan (General) 2022 COVID-19 Vaccine ( - 2024-2 6 season) 2025 Influenza Adult (#1) 2025 RSV Immunization or 60+ Years (1 - 1-dose 75+ series) 2032 Hepatitis A Vaccines Aged Out No long er eligible based on patient's age to complete this topic Meningococcal B Vaccine Aged Out No l onger eligible based on patient's age to complete this topic Meningococcal Vaccine Aged Out No gage jax eligible based on patient's age to complete this topic RSV Immunizations Under 20 Months Aged Out No longer eligible based on patient's age to complete this topic Insurance
[2025-04-22 10:57] LABS: Alanine Aminotransferase 27 U/L (6-35); Albumin Level 4.2 g/dL (3.5-5.1); Alkaline Phosphatase 74 U/L (38-126); Anion Gap 4 mmol/L (4-12); Aspartate Amino Transferase 28 U/L (14-36); Bilirubin,Total 0.5 mg/dL (0.2-1.3); Blood Urea Nitrogen 14 mg/dL (7-17); Calcium 8.8 mg/dL (8.4-10.2); Carbon Dioxide 30 mmol/L (22-30); Chloride 106 mmol/L (98-107); Cholesterol 144 mg/dL (0-200); Estimated Glomerular Filt Rate 60; Glucose 88 mg/dL (65-110); HDL Direct 59 mg/dL; Potassium 4.4 mmol/L (3.4-5.0); Sodium 140 mmol/L (137-145); Total Protein 7.6 g/dL (6.3-8.2); Triglycerides 114 mg/dL (<150)
== END 2025-04-22 10:01 | disposition home or self-care (01) ==
PROVIDERS: PCP Nurse Practitioner; Visit Provider Nurse Practitioner
DX: E78.5 Hyperlipidemia, unspecified (principal); E55.9 Vitamin D deficiency, unspecified
CPT/HCPCS: 36415; 80053; 80061; 82306; 85027

== ENCOUNTER 2025-04-28 10:43 | Outpatient (CLI) | payer MEDICARE, OTHER, SELFPAY ==
--- NOTE | ~2025-04-28 | CT_ITS ---
EXAMINATION:CT diagnostic chest wo con DATE: 04/28/2025 11:03 INDICATION: Pneumonia TECHNIQUE: Computed tomography (CT) of the chest was performed without intravenous contrast. The dose-length product (DLP) was 127.83 mGy-cm. COMPARISON: October 12, 2024 FINDINGS: 5.5 x 3.6 mm slightly spiculated appearing nodule in the left upper lobe image 43 series 4 appears new. Scattered areas of fibrotic appearing changes stable. No new consolidation effusion or pneumothorax. Bibasilar consolidation has largely resolved with mild residual bilateral fibrotic appearing changes. Heart and great vessels within normal limits. No bulky lymphadenopathy or significant pericardial effusion. Central large airways are patent. The bones are intact. No acute process seen in the visualized portions of the upper abdomen or extrathoracic soft tissues. IMPRESSION: 1. 5.5 mm slightly spiculated appearing nodule in the left upper lobe appears new. Size is likely too small to be confidently characterized or even detected with PET/CT. Correlate with follow-up chest CT in 2-3 months. 2. Significant improvement in aeration of the lung bases compared to the October 12 exam. Reviewed, dictated and finalized at location A. MAKING MACHINE OPERATOR IMPRESSION: 1. 5.5 mm slightly spiculated appearing nodule in the left upper lobe appears n ew. Size is likely too small to be confidently characterized or even detected w ith PET/CT. Correlate with follow-up chest CT in 2-3 months. 2. Significant improvement in aeration of the lung bases compared to the October 12 exam.
--- OUTSIDE RECORDS SUMMARY | 2025-04-28 15:30 | XMS_ITS | Clinical Summary ---
Author Organization [facility] Address [address] [place] [id number] Care Team Providers Care Veterans Services Specialist Name Role Phone Unavailable Primary Care Provider [...]
== END 2025-04-28 10:44 | disposition home or self-care (01) ==
PROVIDERS: PCP Nurse Practitioner; Visit Provider Internal Medicine Pulmonary Disease
DX: J18.9 Pneumonia, unspecified organism (principal); R91.1 Solitary pulmonary nodule
CPT/HCPCS: 71250